=== PATIENT | female | born 1950 | race Caucasian/White ===

== ENCOUNTER 2022-04-19 08:43 | Outpatient (REF) | payer MEDICARE, SELFPAY ==
--- NOTE | ~2022-04-19 | CT_ITS ---
EXAMINATION: CT LUMBAR SPINE WITHOUT CONTRAST CLINICAL INFORMATION: 71-year-old with radiculopathy, lumbar region. COMPARISON: None TECHNIQUE: CT imaging of the lumbar spine was performed with 2D multiplanar reformatted reconstructions. This CT examination was performed using dose optimization techniques as appropriate, variously including the following: *Automated exposure control *Adjustment of mA and/or kV according to patient size (this includes techniques or standardized protocols for targeted exams where dose is matched to indication/reason for exam; i.e. extremities or head) *Use of iterative reconstruction technique DLP; 465 mGy-cm FINDINGS: Alignment: There is S-shaped thoracolumbar scoliotic curvature, mildly to moderately convex to the right at L4-L5 with lktp-fr-hiazb lateral listhesis at L4-L5. There is lordotic loss, with slight reversal of the normal lordotic curvature centered at L2-L3 and there is trace retrolisthesis at L5-S1. Lumbosacral Junction: Normal. There are 5 fwr-ibf-vzwamdr lumbar-type vertebral bodies. Hardware: There is evidence of previous anterior instrumented interbody fusions at the L2-L3, L3-L4 and L4-L5 levels, with fusion cages noted in place, with left paravertebral fusion hardware also noted in place, with intact hardware without hardware fracture or loosening. There is bridging paravertebral ossification which appears to engulf the paravertebral hardware on the left. Vertebral Bodies: Vertebral body heights are well-maintained. No acute fractures are identified. Disc Spaces and Endplates: Solid osseous interbody fusion noted at the L2-L3, L3-L4 and L4-L5 levels, with multilevel anterolateral spondylosis and multilevel paravertebral bridging osteophytosis. Moderate disc space height loss at L5-S1 is noted, with intradiscal vacuum disc phenomenon, Schmorl's nodes, degenerative endplate sclerosis and spondylosis. Tiny focus of vacuum disc noted anteriorly at L1-L2 with minor anterior and paravertebral spondylosis. Spinal Levels: L5-S1: Mild retrolisthesis is noted. There is concentric disc bulging, with encroachment on the ventral dural sac. Ligamentum flavum thickening is noted with severe right-sided and moderate left-sided facet arthropathy. Somewhat prominent epidural fat noted at this level without significant central spinal canal stenosis. Some crowding of the subarticular zones is noted with disc bulging encroaching on the traversing S1 nerve roots, right more the left. There is severe right-sided and moderate left-sided neuroforaminal stenosis with impingement on the exiting right L5 nerve root. L4-L5: Postlaminectomy changes noted on the right. Soft tissues within the canal and neural foramina are partially obscured due to artifact. Solid osseous fusion of the posterior elements noted on the left with bilateral facet arthropathy. Mild foraminal narrowing is noted bilaterally without definite neural impingement. No bony canal stenosis. L3-L4: Postlaminectomy changes noted posteriorly. No bony canal stenosis. Soft tissues are partially obscured by metallic artifact. No significant neuroforaminal stenosis. Partial solid osseous fusion of the posterior elements on the left. L2-L3: Postlaminectomy changes with no bony canal stenosis. Soft tissues in the canal are partially obscured by artifact. Ffsp-jl-jwouifcw facet arthropathy is noted, right more than left. No significant neuroforaminal stenosis. L1-L2: No significant disc bulge or herniation. Mild right-sided facet arthropathy noted. No significant canal or neuroforaminal stenosis. T12-L1: No disc bulge or herniation. Minor facet arthrosis noted bilaterally. No canal or neuroforaminal stenosis. Paravertebral and Included Extraspinal Soft Tissues: Visualized lung bases are grossly unremarkable. Note is made of a 1 cm ovoid left adrenal nodule with a CT number of -5 Hounsfield units consistent with a lipid-rich benign adrenal adenoma. Recommend followup CT in 12 months to reassess for stability. The paravertebral soft tissues appear grossly unremarkable. The right kidney is malrotated. CT/CT lumbar spine wo IV con IMPRESSION: 1. Thoracolumbar S-shaped scoliotic curvature, with lordotic loss and mild retrolisthesis at L5-S1 with dswk-se-nnshu lateral listhesis at L4-L5. 2. Status post anterior and posterior instrumented fusions at L2-L3, L3-L4 and L4-L5 with intact hardware without fracture or loosening. Solid osseous interbody fusion noted at L2-L3, L3-L4 and L4-L5 with partial solid osseous fusion of the posterior elements on the left at L3-L4 and L4-L5. Post laminectomy changes noted with no evidence for bony canal stenosis. Soft tissues in the canal at the operative levels are obscured by metallic artifact. 3. Disc degenerative changes with disc bulging at L5-S1 with facet arthropathy, disc bulging encroaching on the subarticular zones, with encroachment on the traversing S1 nerve roots, right more than left. Severe right-sided and moderate left-sided neuroforaminal stenosis with impingement on the exiting right L5 nerve root and mild foraminal narrowing bilaterally at L4-L5. 4. A 1 cm left adrenal nodule consistent with a lipid-rich benign adrenal adenoma. Recommend followup CT of the abdomen in 12 months to reassess for stability.
== END 2022-04-19 08:44 | disposition home or self-care (01) ==
LOC: HO.CT 08:43
PROVIDERS: PCP Internal Medicine; Visit Provider Internal Medicine
DX: M54.16 Radiculopathy, lumbar region (principal); R26.9 Unspecified abnormalities of gait and mobility
CPT/HCPCS: 72131

== ENCOUNTER → 2022-06-19 10:20 | Outpatient (BNVA) | payer MEDICARE, SELFPAY | PROVIDERS: PCP Internal Medicine; Visit Provider Physician Assistant | DX: M54.40 Lumbago with sciatica, unspecified side (principal) | CPT/HCPCS: 99202 ==

== ENCOUNTER 2022-07-13 10:15 | Outpatient (REF) | payer MEDICARE, SELFPAY ==
--- NOTE | ~2022-07-13 | MM_ITS ---
EXAMINATION: BONE DENSITOMETRY CLINICAL INDICATION: Age-related osteoporosis without current pathological fracture. COMPARISON: This is the patient's baseline examination. TECHNIQUE: Using a [employer] DXA System (software version: 13.1) manufactured by [employer], dual-energy x-ray absorptiometry was performed of the left hip and left forearm radius 33%. The images are of good technical quality. Summary results are attached. FINDINGS: LEFT FEMUR, NECK: BMD 0.987 g/cm2, Z-score 1.3, T-score -0.4, normal. LEFT FEMUR, TOTAL: BMD 1.056 g/cm2, Z-score 1.8, T-score 0.4, normal. LEFT FOREARM RADIUS 33%: BMD 0.854 g/cm2, Z-score 1.8, T-score -0.2, normal. IDENTIFIED RISK FACTORS: Menopause, hysterectomy. HISTORY OF FRACTURE: None listed. MEDICATIONS: Calcium supplements or multivitamin, vitamin D. MM/XR DEXA axial skeleton IMPRESSION: 1. DIAGNOSIS: Normal bone density based on the lowest T-score value of -0.4 in the femoral neck applying World Health Organization criteria. 2. 10-YEAR FRACTURE RISK PREDICTION, FRAX: According to the guidelines, FRAX calculation should only be performed on patients in the osteopenia bone density category. Therefore, FRAX was not performed on this patient. 3. Treatment Recommendations: NOF guidelines recommend consideration for treatment in postmenopausal women and men age 50 and older presenting with the following: -A hip or vertebral (clinical or morphometric) fracture. -T-score less than or equal to -2.5 at the femoral neck or spine after appropriate evaluation to exclude secondary causes. -Low bone mass at the hip or spine and a 10-year fracture probability by FRAX of greater than or equal to 3% for hip fracture or greater than or equal to 20% for major osteoporotic fracture based on the [place] adapted WHO algorithm. 4. Other Recommendations: All treatment decisions require clinical judgment and consideration of individual patient factors, including patient preferences, comorbidities, previous drug use, risk factors not captured in the FRAX model (e.g. frailty, falls, vitamin D deficiency, increased bone turnover, interval significant decline in bone density) and possible under or overestimation of fracture risk by FRAX. FUTURE SCAN RECOMMENDATION: People with diagnosed cases of osteoporosis or at high risk for fracture should have regular bone mineral density tests. For patients eligible for Medicare, routine testing is allowed once every 2 years. The testing frequency can be increased to one year for patients who have rapidly progressing disease, those who are receiving or discontinuing medical therapy to restore bone mass, or have additional risk factors.
== END 2022-07-13 10:16 | disposition home or self-care (01) ==
LOC: HO.MAMMO 10:15
PROVIDERS: PCP Internal Medicine; Visit Provider Internal Medicine
DX: Z13.820 Encounter for screening for osteoporosis (principal); M81.0 Age-related osteoporosis without current pathological fracture; Z91.89 Other specified personal risk factors, not elsewhere classified; Z78.0 Asymptomatic menopausal state
CPT/HCPCS: 77080

== ENCOUNTER 2022-07-18 10:15 | Outpatient (REF) | payer MEDICARE, SELFPAY ==
--- NOTE | ~2022-07-18 | MR_ITS ---
EXAMINATION: MR LUMBAR SPINE WITHOUT CONTRAST CLINICAL INFORMATION: Low back pain and sciatica. COMPARISON: CT lumbar spine dated 04/19/2022 TECHNIQUE: Multiplanar, multisequence imaging was obtained. FINDINGS: . VERTEBRAL BODIES AND PARASPINAL STRUCTURES: The patient is status post multilevel interbody fusion with hardware instrumentation at the L2-L3, L3-L4, and L4-L5 levels. Solid interbody fusion changes are demonstrated, despite artifacts and also when correlating to the patient's prior CT exam. Chronic postlaminectomy changes are also present at these levels. There are no compression fractures. The marrow signal is within normal limits. There is a rightward curvature of the midlumbar spine. Moderate to severe loss of disc height with vacuum disc phenomenon noted at the L5-S1 level. No paraspinal soft tissue fluid collections are seen. CONUS MEDULLARIS AND CAUDA EQUINE: The distal cord, conus tip, and cauda equina nerve roots are normal. SPINAL LEVELS: L1-L2: Very mild disc bulge and unkl-qy-zeyvfvld facet arthropathy without central canal stenosis or foraminal narrowing. L2-L3: Post fusion changes without central canal stenosis or foraminal narrowing. L3-L4: Post fusion changes present without central canal stenosis. Hypertrophic bony changes and bulging disc result in moderate left foraminal encroachment and mild right foraminal narrowing. L4-L5: Post fusion changes and facet arthropathy without central canal stenosis. Mild right foraminal narrowing. Hypertrophic bony changes contribute to moderate left foraminal encroachment. L5-S1: Diffuse disc bulge and moderate to severe facet arthropathy, worse on the right side. No central canal stenosis. Bulging disc mildly impresses upon the right S1 nerve root in the lateral recess. Severe bilateral foraminal narrowing due to osseous spurring and bulging disc distorting the right L5 nerve root. Lateralized bulging disc contacts the exiting left L5 nerve root as well. MR/MR lumbar spine wo con IMPRESSION: 1. Status post multilevel interbody fusion with hardware instrumentation at the L2-L3, L3-L4, and L4-L5 levels. Moderate left foraminal narrowing at the L3-L4 and L4-L5 levels. 2. Moderate to severe degenerative disc disease at the L5-S1 level without central canal stenosis. Bulging disc distorts the right S1 nerve root in the lateral recess. Severe bilateral foraminal narrowing with compression of the right greater than left L5 nerve roots.
== END 2022-07-18 10:16 | disposition home or self-care (01) ==
LOC: HO.MRI 10:15
PROVIDERS: PCP Internal Medicine; Visit Provider Physician Assistant
DX: M54.40 Lumbago with sciatica, unspecified side (principal)
CPT/HCPCS: 72148

== ENCOUNTER → 2022-08-07 15:00 | Outpatient (BNVA) | payer MEDICARE, SELFPAY | PROVIDERS: PCP Internal Medicine; Visit Provider Physician Assistant | DX: M54.50 Low back pain, unspecified (principal); Z98.1 Arthrodesis status | CPT/HCPCS: 99212 ==

== ENCOUNTER → 2022-10-02 13:02 | Outpatient (BNV) | payer MEDICARE, SELFPAY | PROVIDERS: Admitting Provider Internal Medicine; Visit Provider Internal Medicine Cardiovascular Disease | DX: Z01.818 Encounter for other preprocedural examination (principal) | CPT/HCPCS: 93010 ==

== ENCOUNTER 2022-10-15 09:13 | Inpatient (IN) | payer MEDICARE, SELFPAY ==
--- NOTE | 2022-10-02 | ECG_ITS ---
Test Reason : PREOP Blood Pressure : / mmHG Vent. Rate : 070 BPM Atrial Rate : 070 BPM P-R Int : 142 ms QRS Dur : 086 ms QT Int : 400 ms P-R-T Axes : 021 -04 007 degrees QTc Int : 432 ms Normal sinus rhythm Cannot rule out Anterior infarct , age undetermined Abnormal ECG When compared with ECG of 25-SEP-2016 12:46, No significant change was found Referred By: Dionna Blakely Electronically Signed By:ALEN ANDERSON MD
[2022-10-02 12:28] VITALS: BP 136/75; PULSE 75; RESP 16; O2SAT 99; BMI 28.3
--- NOTE | 2022-10-02 12:39 | P.CONAN_ITS ---
HPI - Anesthesia Eval Consult details Narrative: 72yo F for L5-S1 Ant Lumbar Interbody Fusion No recent illness No CP/SOB with limited activity d/t back pain PONV Pt denies CKD. Per labs from outside facility, nml kidney function. PMFSH Active Problems Active Problems: All Active Problems (Updated 10/02/22 @ 12:19 by Alejandra Thacker, RN) Back pain of lumbar region with sciatica (Acute) Past Medical History Medical History (Updated 10/02/22 @ 12:19 by Alejandra Thacker RN) Abnormal gait Arthritis Benign neoplasm of soft tissue Calcaneal spur CKD (chronic kidney disease) stage 3, GFR 30-59 ml/min Contusion DDD (degenerative disc disease), lumbar Gait disturbance H/O onychomycosis History of sciatica HTN (hypertension) Hyperlipidemia Increased urinary frequency Lumbar radiculopathy Neuroforaminal stenosis of lumbar spine Neuropathy Peroneal neuropathy Post-menopause Pruritus Right sacral radiculopathy Seborrheic keratosis Tarsal tunnel syndrome of both lower extremities Weakness of right lower extremity Family History Family history of problems with anesthesia: Yes (Daughter - PONV) Surgical History Surgical History (Updated 10/02/22 @ 12:19 by Alejandra Thacker RN) H/O colonoscopy History of back surgery History of carpal tunnel surgery of right wrist Hx of hysterectomy History of Problems with Anesthesia: Yes (PONV) Social History Social History Are you a primary specialist wound care to a significant other at home: No Do you presently have visiting nurse or other home services: No Patient Tobacco Use Status: Never used Tobacco Use of substances other than those prescribed or required for medical reasons: No Have you been hit, kicked, punched, or otherwise hurt by someone within the past year? If so, by whom?: No Are you DNR?: No Advance Directives: No Advance Directives Information Provided: No Advance Directives on File: No Recently lost weight without trying: No Eating poorly because of decreased appetite: No Nutrition Risks: No Nutritional Risk Patient : No : No Poor oral hygiene: Yes (crown in front) Meds Allergies Allergy/AdvReac Type Severity Reaction Status Date / Time diphenhydramine Allergy Intermediate heart Verified 06/19/22 10:47 [From Benadryl Allergy] palpatations Home Medications Medication Instructions Recorded Confirmed Last Taken Type cholecalciferol (vitamin D3) 25 25 mcg PO DAILY 10/01/22 10/01/22 Unknown History mcg (1,000 unit) tablet (Vitamin D3) cyanocobalamin (vitamin B-12) 1,000 mcg PO DAILY 10/01/22 10/01/22 Unknown History 1,000 mcg tablet (Vitamin B-12) gabapentin 300 mg capsule 600 mg PO BID 10/01/22 10/01/22 Unknown History olmesartan 5 mg tablet 10 mg PO DAILY 10/01/22 10/02/22 Unknown History ybhqr2-fei-cax-other nwpst0h-uazq 2 cap PO DAILY 10/01/22 10/01/22 Unknown History oil 350 mg- 400 mg capsule vitamin E 268 mg (400 unit) capsule 268 mg PO DAILY 10/01/22 10/01/22 Unknown History magnesium 200 mg tablet 200 mg PO DAILY 10/02/22 10/02/22 Unknown History naproxen 500 mg tablet 500 mg PO BID PRN Pain 10/02/22 10/02/22 Unknown History Exam Exam Date and Time: October 02, 2022 123 Height,Weight and Vital Signs: Height 5 ft 5 in Weight 77.111 kg Last Vital Signs Pulse 75 10/02/22 12:28 Resp 16 10/02/22 12:28 BP 136/75 10/02/22 12:28 Pulse Ox 99 10/02/22 12:28 O2 Del Method Room Air 10/02/22 12:28 Airway Mallampati Class: II TM Dist: >3cm Neck ROM: Full Loose/Missing/Broken Teeth: Yes (8&9 crowned, molars missing) Heart: RRR Lungs: CTAB Assessment and Plan Assessment Anesthesia Assessment: Anesthesia Plan Discussed and PAT Visit Final Anesthetic Review Family History of Problems with Anesthesia: Yes (Daughter - PONV) History of Problems with Anesthesia: Yes (PONV)
[2022-10-15] VITALS (15 sets, daily range): BP systolic 121–156; BP diastolic 57–84; PULSE 54–95; RESP 12–20; TEMP 35.8–36.8; O2SAT 95–100
--- NOTE | ~2022-10-15 | FL_ITS ---
EXAMINATION: XR FLUOROSCOPY WITH IMAGES CLINICAL INFORMATION: L5-S1 anterior lumbar interbody fusion. COMPARISON: Lumbar spine CT April 2022 TECHNIQUE: Fluoroscopy Supervised By: Dr. Ronen Dela Cruz. Fluoroscopy Time: 0.2 minutes. Cumulative Dose: 19.3 mGy. DAP: 5.28 Gycm2. Images: 3. FINDINGS: Images demonstrate new anterior interbody fusion hardware at L5-S1. There is evidence of previous interbody fusion at L3-L4 and L4-L5 similar to previous CT scan April 2022. FL/FL guidance in OR IMPRESSION: Fluoroscopy guidance for anterior interbody fusion at L5-S1.
--- NOTE | ~2022-10-15 | XR_ITS ---
EXAMINATION: XR LUMBOSACRAL SPINE CLINICAL INFORMATION: Postop evaluation. COMPARISON: None available. TECHNIQUE: Limited single view of the lumbosacral spine. FINDINGS: The patient is status post left lateral fusion at L2-L3, L3-L4 and L4-L5 and anterior fusion at L5-S1. There is good anatomic alignment without overt abnormality. Multilevel prominent marginal osteophyte formation is seen. No acute fracture. Nonobstructive bowel gas pattern. Linear air is presumed postsurgical overlying the left hemipelvis. XR/XR lumbar spine 1V IMPRESSION: 1. Overall good anatomic alignment without overt abnormality. 2. Linear air overlying the left hemipelvis is presumed postsurgical.
[2022-10-15] MEDS: methocarbamoL 750 MG TABLET PO (07:00)
[2022-10-15] MEDS: Scopolamine 1.5 MG PATCH.TD.3 TRANSDERMA (07:01)
[2022-10-15] MEDS: Gabapentin 300 MG CAPSULE PO ×3 (07:01→20:33)
--- NOTE | 2022-10-15 07:10 | MHC.SHP ---
Pre-Procedural Eval Section A Date of Service: 10/15/22 The patient is an INPATIENT: No The History & Physical has been completed within 30 days and I have reviewed it.: No Section B Chief Complaint: Lumbago with sciatica, unspecified side Details of Present Illness: Back pain Relevant Family History (Specify if Yes): No Relevant Social History: None Present Medications: see Short Stay Collaborative assessment Medical History: No relevant PMH History of Previous Operations: No relevant previous surgery (L2-L5 fusion elsewhere) Allergies: Allergies Allergy/AdvReac Type Severity Reaction Status Date / Time diphenhydramine Allergy Intermediate heart Verified 10/15/22 06:23 [From Benadryl Allergy] palpatations Review of Systems Sugical H&P ROS: Negative: Constitution, Cardiovascular, Respiratory, Neurological, Psychiatric, Hem-Onc, Allergic/Immunologic, Gastrointestinal, Genitourinary, Musculoskeletal, Integumentary, Endocrine and Eyes/Ears/Nose/Throat Exam Surgical H&P Exam: Not Evaluated: HEENT, Not Evaluated: Heart, Not Evaluated: Lungs, Not Evaluated: Extremities, Not Evaluated: Abdomen, Not Evaluated: Skin and Not Evaluated: Neurological Plan Diagnosis/Plan: Unchanged (Anterior lumbar interbody fusion L5-S1) I have reviewed the history and physical and performed a pertinent physical examination on my patient. No changes have occurred unless specified. Time Spent With Patient Time: Total time managing care of this patient today __10__ minutes.
--- NOTE | 2022-10-15 08:23 | P.CONAN_ITS ---
[facility] Active Problems Active Problems: All Active Problems (Updated 10/02/22 @ 12:19 by Alejandra Thacker RN) Back pain of lumbar region with sciatica (Acute) Past Medical History Medical History Abnormal gait Arthritis Benign neoplasm of soft tissue Calcaneal spur CKD (chronic kidney disease) stage 3, GFR 30-59 ml/min Contusion DDD (degenerative disc disease), lumbar Gait disturbance H/O onychomycosis History of sciatica HTN (hypertension) Hyperlipidemia Increased urinary frequency Lumbar radiculopathy Neuroforaminal stenosis of lumbar spine Neuropathy Peroneal neuropathy Post-menopause Pruritus Right sacral radiculopathy Seborrheic keratosis Tarsal tunnel syndrome of both lower extremities Weakness of right lower extremity Family History Family history of problems with anesthesia: No (Daughter - PONV) Surgical History Surgical History H/O colonoscopy History of back surgery History of carpal tunnel surgery of right wrist Hx of hysterectomy History of Problems with Anesthesia: No (PONV) Social History Social History Are you a primary wound care physician to a significant other at home: No Do you presently have visiting nurse or other home services: No Patient Tobacco Use Status: Never used Tobacco Meds Allergies Allergy/AdvReac Type Severity Reaction Status Date / Time diphenhydramine Allergy Intermediate heart Verified 10/15/22 06:23 [From Benadryl Allergy] palpatations Active Medications: Current Medications Lactated Ringer's (Lr) 1,000 mls @ 100 mls/hr IVCONT .Q10H [facility] Home Medications Medication Instructions Recorded Confirmed Last Taken Type cholecalciferol (vitamin D3) 25 25 mcg PO DAILY 10/01/22 10/01/22 Unknown History mcg (1,000 unit) tablet (Vitamin D3) cyanocobalamin (vitamin B-12) 1,000 mcg PO DAILY 10/01/22 10/01/22 Unknown History 1,000 mcg tablet (Vitamin B-12) gabapentin 300 mg capsule 600 mg PO BID 10/01/22 10/01/22 Unknown History olmesartan 5 mg tablet 10 mg PO DAILY 10/01/22 10/02/22 Unknown History -obs-wcw-other nleic5t-nsuk 2 cap PO DAILY 10/01/22 10/01/2210/08/23 History oil 350 mg- 400 mg capsule vitamin E 268 mg (400 unit) capsule 268 mg PO DAILY 10/01/22 10/01/22 Unknown History magnesium 200 mg tablet 200 mg PO DAILY 10/02/22 10/02/22 Unknown History naproxen 500 mg tablet 500 mg PO BID PRN Pain 10/02/22 10/02/22 Unknown History Exam Exam Date and Time: October 15, 202223 Height,Weight and Vital Signs: Height 5 ft 5 in Weight 77.111 kg Last Vital Signs Temp 97.3 F 10/15/22 06:50 Pulse 81 10/15/22 06:50 Resp 16 10/15/22 06:50 BP 146/84 H 10/15/22 06:50 Pulse Ox 98 10/15/22 06:50 O2 Del Method Room Air 10/15/22 06:50 Airway Mallampati Class: III TM Dist: >3cm Neck ROM: Full Assessment and Plan Assessment Anesthesia Assessment: Anesthesia Plan Discussed and Chart Reviewed Final Anesthetic Review Family History of Problems with Anesthesia: No (Daughter - PONV) History of Problems with Anesthesia: No (PONV) NPO: Yes ASA Class: II Final Preanesthetic Review: No Changes in Pt Med Stat, Meds/Allgs Chart Reviewed, Consent Obtained/Reviewed and Anes Risks/Benef Reviewed Patient Risk: Low Procedure Risk: Intermediate Anesthetic Plan Anesthetic Plan: GA Disposition: Standard PACU
--- NOTE | 2022-10-15 09:26 | P.OP_ITS ---
Operative Note Operative Note Date of Service: 10/15/22 Narrative: Preoperative Diagnosis: 1.) Back pain and bilateral leg pain Procedure: L5-S1 discectomy, arthrodesis and implantation cage; L5-S1 anterior instrumentation through an anterior, retroperitoneal approach (ALIF) Indication for surgery: Lumbar degenerative disease Consent Informed Consent was obtained for this operation. I have explained the nature, purpose and benefits of the operation. I have discussed the risks and benefit of the operation including possible complications or adverse events with patient/family. Alternative(s) were discussed with the patient with their relative benefits and risks as well as the consequences of not accepting the operation were included in obtaining consent. Surgeon: LIONEL DOCKERY MD, PHD Procedure Assisted By: BALJINDER MILLER MD Description of Procedure This 72-year-old female had a previous L2-L5 direct lateral interbody fusion done in our institution. She complains of progressive intractable low back pain and bilateral leg pain. The MRI is showing lumbar degenerative disc disease L5- S1. The patient was offered a minimally invasive lumbar fusion through an anterior, retroperitoneal approach.The procedure complications were explained. The patient was consented. The patient was brought to the operating room and endotracheally intubated. The patient was positioned in a supine position. Prep and drape was done followed by timeout. Dr. Miller, co-surgeon, provided the access to the L5-S1 disc space through an anterior, retroperitoneal approach. He will dictate the approach in a separate operative note. When the L5-S1 disc space was exposed I took over the procedure. An annulotomy was done followed by a thorough discectomy. Sequential trial implants were inserted and advanced towards the posterior wall of the disc space. I completed the discectomy and prepared the endplates. Then a 24 x 36 x 10 mm and 12 degree lordosis cage filled with allograft was inserted into the disc space. The cage was locked with a 5 x 27 S1 screw and two 5 x 23 screws in L5 vertebral body as anterior instrumentation. The retractor was removed and hemostasis was done by Dr. Sanford who closed the incision. Patient was extubated and transported in stable condition to recovery room. Anesthesia: General Estimated Blood Loss (ml): 30 Duration of Surgery: 1 hour 15 Complications: None Postoperative Plan: Admit to inpatient for observation
--- NOTE | 2022-10-15 10:07 | PHA.MEDREC ---
Pharmacy Consult ? Medication Reconciliation Pharmacy has reviewed the medication reconciliation.
--- NOTE | 2022-10-15 10:43 | P.OP_ITS ---
Operative Note Operative Note Date of Service: 10/15/22 Narrative: Patient was evaluated by Dr. Dela Cruz for chronic lower back pain and radiculopathy and scheduled for ALIF L5-S1. I met with the patient pre- operatively and discussed the access part of the procedure and risks an the patient agreed to proceed. She was brought to the operating room and general anaesthesia was administered without incident. Abdomen was prepped sterily and draped. Timeout was done. 6 cm infra-umbilical incision was done and it was phan down to the anterior rectus sheath. Rectus sheath was opened horizontally and left rectus muscle was mobilized. Left inferior epigastric vessels were protected. Round ligament was transected between hemoclips ant retro-peritoneal plane was developed , Left ureter was visualized and protected. Bookwalter retractor was placed with narrow blades. Dissection was carried at the medial aspect of the the left common iliac vein which was mobilized from the spine and middle sacral vessels were divided, Bipolar electrocautery was used to completely free L5-S1 disc anteriorly. Midline was marked with X-ray imaging. Doctor Dela Cruz then proceeded with diskectomy and cage fusion.Hemostasis was checked and was excellent. Gelfoam sponge was placed over the disc space. Ureter was intact and there was a good iliac pulse. Incision was injected with diluted Lidocaine/Marcaine mixture and closed by layers using O-Maxone on the fascia and absorbable subcutaneous and subcuticular closure. Exofin glue and steri-strip were applied. EBL: less then 10ml Complication:none
[2022-10-15] MEDS: HYDROmorphone HCl 1 MG/ML SYRINGE IVPUSH (11:16)
[2022-10-15] MEDS: ceFAZolin Sodium/Dextrose,Iso 2 GM/50 ML PIGGYBACK IV ×2 (13:18→20:34)
[2022-10-15] MEDS: Acetaminophen 1,000 MG/100 ML PIGGYBACK 400 MG IV ×2 (14:17→20:24)
[2022-10-15] MEDS: Gabapentin 300 MG CAPSULE 600 MG PO (20:34)
[2022-10-15] MEDS: Famotidine 20 MG TABLET PO (20:34)
[2022-10-15] MEDS: Docusate Sodium 100 MG CAPSULE PO (20:34)
[2022-10-16] MEDS: Acetaminophen 1,000 MG/100 ML PIGGYBACK 400 MG IV ×2 (02:52→09:16)
[2022-10-16] MEDS: ceFAZolin Sodium/Dextrose,Iso 2 GM/50 ML PIGGYBACK IV (02:54)
[2022-10-16 03:41] VITALS: BP 124/60; PULSE 68; RESP 16; TEMP 36.1; O2SAT 99
[2022-10-16 07:56] VITALS: BP 111/59; PULSE 68; RESP 16; TEMP 36.6; O2SAT 98
--- NOTE | 2022-10-16 08:05 | HO.NEURO.PN ---
Neurosurgery Operative Note Date of Service: 10/16/22 Narrative: POD: 1 Procedure: L5-S1 ALIF Patient reports she is up walking around is otherwise doing well. She feels her symptoms are much better than pre-operatively and reports no pain / numbness / tingling / burning at this time. She states she is very happy with her surgery. She is ambulating, voiding well, tolerating diet, and is awaiting PT evaluation. Afebrile, vital signs stable. Full strength 5/5 in LE. Reports no weakness / pain with plantar flexion / dorsiflexion. Anterior midline incision is C/D/I. Steri-strips remain in place. No serosanguineous drainage or hematoma. Plan: Patient meets criteria to be medically discharged home, discussed with Dr. Dela Cruz who is aware that she is doing well and meets criteria for DC.
--- NOTE | 2022-10-16 08:12 | P.DS_ITS ---
DS: Providers Provider Date of Service: 10/16/22 Date of admission: 10/15/22 09:13 Primary care physician: Zamzam Vidal MD DS: Diagnosis Discharge Diagnosis (1) Back pain of lumbar region with sciatica: Status: Acute DS: Summary Time Spent with Patient Time attestation: Total time managing care of this patient today ____ minutes. Discharge coordination time: Less than 30 minutes Quality: Safe Use of Opioids Does Pt have an Active Cancer Diagnosis on the Problem List?: No Quality: Stroke Does the patient have a stroke diagnosis?: No Physical Exam Vital Signs: Vital Signs: Last Vital Signs Temp 97.9 F 10/16/22 07:56 Pulse 68 10/16/22 07:56 Resp 16 10/16/22 07:56 BP 111/59 L 10/16/22 07:56 Pulse Ox 98 10/16/22 07:56 O2 Del Method Room Air 10/16/22 07:56 O2 Flow Rate 2 10/15/22 11:15 BMI result Body Mass Index 28.3 Discharge Plan Discharge Anticipated Discharge Date/Time: 10/16/22 08:15 Patient Disposition: Home, Self-Care Discharge Diagnosis: S/P L5-S1 ALIF Referrals: Zamzam Vidal MD [Primary Care Provider] - 1 Week Discharge Medications: New oxycodone 5 mg tablet 5 mg PO Q4-6H PRN (Reason: pain) Qty: 20 0RF Rx Instructions: Partial Fill upon patient request. docusate sodium [Colace] 100 mg capsule 100 mg PO BID Qty: 20 0RF Continued cyanocobalamin (vitamin B-12) [Vitamin B-12] 1,000 mcg Tablet 1,000 mcg PO DAILY vitamin E 268 mg (400 unit) Capsule 268 mg PO DAILY cholecalciferol (vitamin D3) [Vitamin D3] 25 mcg (1,000 unit) Tablet 25 mcg PO DAILY gabapentin 300 mg capsule 600 mg PO BID olmesartan 5 mg tablet 10 mg PO DAILY naproxen 500 mg Tablet 500 mg PO BID PRN (Reason: Pain) magnesium 200 mg Tablet 200 mg PO DAILY Held haqao-2x-ouk-epa-fish oil 350-400 mg Capsule 2 cap PO DAILY Hold Instructions: Resume on 10/21/22. Discharge Orders: Discharge Order (Routine); Ordered 10/16/22 Ordered By: Hiram Narayanan Diet: Advance to usual diet Activity on Discharge: As tolerated Stand Alone Forms: Patient Portal Discharge page Activity Restrictions/Additional Instructions: After your spinal surgery we ask you to observe the following restric tions/guidelines: Activity: It is normal to feel some discomfort as you increase your activity, but that will improve with time. We ask you avoid heavy lifting or acitivities that cause pain. As a general rule, 8lbs is a safe limit for lifting right after surgery. Walk as much as you feel comfortable but not to exhaustion. You will feel extra tired the first few days after surgery. Stay well hydrated. It is OK to walk up and down stairs You may return to driving when you are off narcotics (such as vicodin, oxycodone, dilaudid, etc), and you are back to normal functional capacity. If you have any concerns please check with office before driving. Return to work is specific to each patient and each surgery, so please speak with your doctor/PA at first follow up. Please bring paperwork such as FMLA at that time if you need it filled out. Medications: We will give you a short supply of narcotics after surgery (usually one weeks worth). If you need more please call the office but do not use more than prescribed. You will need to give our office 48 hours notice if you need narcotics refilled and we do not fill narcotics on weekends or evenings. If you are on a narcotic, it is a good idea to take a stool softener such as colace or senna to avoid constipation If you take blood thinner such as aspirin, Plavix, Coumadin, Effient, Eliquis etc for conditions such as Afib, DVT, Pulmonary embolus, coronary disease, stents etc please speak with your surgeon about specific details as to when you can resume these medications. You can resume NSAIDs on post op day 1 (eg: Motrin, Naproxen, etc). Follow up: Please call the office, , after surgery to arrange a 3 week follow up for wound check. Wound Care: You may remove your dressing on the first day after surgery. You may leave open to air. Please do not remove the steri strips underneath. they will fall off on their own in one week. IT IS NORMAL FOR THE WOUND TO OOZE OR BE BLOODY FOR A FEW DAYS AFTER SURGERY. IF THIS HAPPENS JUST PLACE NEW DRESSING OVER IT TO AVOID STAINING CLOTHES. You may shower on post op day # 1 We ask that you do not let the water soak the wound. If it does get wet, just towel dry lightly. Please do not scrub your incision or place any type of chemical/ointment on the wound. No tub baths, pools or jacuzzis for one month. If you have any leaking or redness from your wound, or fevers, please call office Care Plan Goals: return to activity as tolerated Health Concerns: none Plan of Treatment: f/u in clinic in 2 weeks Assessment: stable. clear to discharge after PT evaluation and clearance
--- NOTE | 2022-10-16 08:20 | W.MHC.F2F ---
Service Date Service Date: 10/16/22 Encounter Date of encounter: 10/16/22 Reasons for Services Signs and symptoms assessed: S/P L5-S1 ALIF. See symptomology below. Reason for physical therapy: home safety and mobility, therapeutic exercises, gait/transfer training and ADL training Homebound: Leaving the home is medically contraindicated at this time without the asist of a device and/or another person due th the listed conditions above and below. Reason homebound: unsteady gait / fall risk, leg weakness, pain with ambulation and pain with transfers Certification: Based on the above findings, I certify that this patient is confined to the home and needs intermittent physical therapy. The patient is under my care, and I have initiated the establishment of the plan of care. The patient will be followed by a physician who will periodically review the plan of care. Time Spent With Patient Time: Total time managing care of this patient today _10___ minutes.
--- NOTE | 2022-10-16 09:13 | HO.POSTANES ---
Post Anesthesia Evaluation Post Anesthesia Evaluation Date of Service: 10/16/22 Vital Signs: Vital Signs Temp Pulse Resp BP Pulse Ox O2 Del Method 10/16/22 07:56 97.9 F 68 16 111/59 L 98 Room Air 10/16/22 03:41 96.9 F 68 16 124/60 99 Room Air Anesthesia: General Endotracheal-GETA Mental Status: Awake Pain Control: Satisfactory Nausea/Vomiting: None Hydration: Adequate Anesthesia-Related Issues: No Anes. Related Issues
--- NOTE | 2022-10-16 09:16 | MHC.CM.PN ---
Addendum entered by Makeda Astudillo 10/16/22 12:09: UNABLE TO SECURE A [facility] FOR SERVICES AT HOME DUE TO LOCATION/INSURANCE. [facility] KEVIN UPDATED AND IS AGREEABLE TO OP SERVICES. DAUGHTER CHARLES UPDATED AND AGREEABLE WELL. Addendum entered by Makeda Astudillo 10/16/22 09:52: [facility] DOES NOT SERVICES [facility]. REFERRALS SENT TO MULTIPLE AGENCIES. AWAITING RESPONSES.DAUGHTER AND PT MADE AWARE. Original Note: DP: [facility] DELIVERED PT HAS BEEN MEDICALLY CLEARED FOR DC HOME WITH NEW [facility] FOR HOME P.T. (FIRST CHOICE) PT LIVES ALONE AND HAS SUPPORT FROM DAUGHTERS. INDEPENDENT AT BASELINE. USES CANE AT TIMES AND HAS WALKER BUT DOES NOT USE. + COVID VAX +HCP AT MD OFFICE PCP DR. BHARGAVI ACUNA AT [facility]. REFERRAL SENT TO [facility]. DAUGHTER WILL TRANSPORT HOME
[2022-10-16] MEDS: Famotidine 20 MG TABLET PO (09:18)
[2022-10-16] MEDS: Gabapentin 300 MG CAPSULE 600 MG PO (09:18)
[2022-10-16] MEDS: Valsartan 40 MG TABLET 20 MG PO (09:18)
[2022-10-16] MEDS: Docusate Sodium 100 MG CAPSULE PO (09:18)
[2022-10-16] MEDS: Cholecalciferol (Vitamin D3) 25 MCG TABLET PO (09:18)
== END 2022-10-16 11:00 | disposition home health service (06) | DRG 460 ==
LOC: HO.SSSA 09:33 → HO.S3 10:50
PROVIDERS: Admitting Provider Neurological Surgery; PCP Internal Medicine; Visit Provider Neurological Surgery
PROC: 0SG30A0 Fusion of Lumbosacral Joint with Interbody Fusion Device, Anterior Approach, Anterior Column, Open Approach (ICD-10-PCS; principal; 2022-10-15 07:30)
DX: M51.17 Intervertebral disc disorders with radiculopathy, lumbosacral region (principal); I12.9 Hypertensive chronic kidney disease with stage 1 through stage 4 chronic kidney disease, or unspecified chronic kidney disease; N18.30 Chronic kidney disease, stage 3 unspecified; E78.5 Hyperlipidemia, unspecified; Z79.899 Other long term (current) drug therapy
CPT/HCPCS: 72020; 93005; 97116; 97161; 97530; C1713; J0131; J0690; J1100; J1170; J1885; J2250; J2371; J2405; J3010; L8699

== ENCOUNTER → 2022-10-15 09:13 | Outpatient (BNV) | payer MEDICARE, SELFPAY | PROVIDERS: Admitting Provider Neurological Surgery; PCP Internal Medicine; Visit Provider Neurological Surgery | DX: M54.40 Lumbago with sciatica, unspecified side (principal) | CPT/HCPCS: 22558; 22845; 22853 ==

== ENCOUNTER 2022-11-06 14:19 | Outpatient (AMB) | payer MEDICARE, SELFPAY ==
--- NOTE | 2022-11-06 14:31 | A.SPINEOV_ITS ---
Intake Intake Visit Reasons: 1st post op Intake Note: Ms. Narayan Hernandez is here today for her 1st post-op visit. Retirement Plan Counselor Required: No Allergies diphenhydramine [From Benadryl Allergy] Allergy (Intermediate, Verified 10/15/22 06:23) heart palpatations Assessment & Plan Assessment & Plan (1) Status post lumbar and lumbosacral fusion by anterior technique: Code(s): Z98.1 - Arthrodesis status Plan Dear colleague, On 11/06/2022, I saw for 1st postoperative visit Sapna Hernandez. She underwent an L5-S1 anterior lumbar interbody fusion 3 weeks ago from which she has an excellent recovery so far. She denies any significant pain. No radiculopathy. We reviewed the intraoperative x-ray, which shows a stand-alone implant L5-S1 secured with 3 screws. She is allowed to further expand her activities. I would like to follow up in 6 weeks with a standing x-ray. Thank you for letting me take care of your patient. Ronen Dela Cruz MD, PhD Spine Fellowship Trained Neurosurgeon Director, [facility] Coding Level of Care Code Global (14354) Diagnoses Status post lumbar and lumbosacral fusion by anterior technique Z98.1
== END 2022-11-06 15:13 | disposition home or self-care (01) ==
PROVIDERS: PCP Internal Medicine; Visit Provider Neurological Surgery
DX: Z98.1 Arthrodesis status (principal)
CPT/HCPCS: 99024

== ENCOUNTER → 2022-11-06 14:19 | Outpatient (BNVA) | payer MEDICARE, SELFPAY | PROVIDERS: Visit Provider Neurological Surgery ==

== ENCOUNTER 2022-12-18 09:21 | Outpatient (REF) | payer MEDICARE, SELFPAY ==
--- NOTE | ~2022-12-18 | XR_ITS ---
EXAMINATION: XR LUMBOSACRAL SPINE WITH OBLIQUES CLINICAL INFORMATION: Arthrodesis status. COMPARISON: October 15, 2022. TECHNIQUE: Frontal view of the lumbar spine as well as lateral views in flexion, neutral, and extension. FINDINGS: The patient is status post left lateral lumbar spinal fusion and disc spacing device placement at L2-L5. Anterior fusion/disc spacing device is seen at L5-S1. There is no evidence of hardware fracture or loosening. No bony fracture is appreciated. Mild lumbar dextrocurvature. No evidence of spondylolysis or spondylolisthesis, including in flexion, neutral, and extension. Vertebral body heights appear maintained. The paraspinal soft tissues appear unremarkable. Surgical clips object over the left groin on frontal view and anterior to the upper sacrum on lateral view. XR/XR lumbar spine 4V min IMPRESSION: No acute finding. No evidence of hardware fracture or loosening.
== END 2022-12-18 09:22 | disposition home or self-care (01) ==
LOC: HO.HOSX 09:21
PROVIDERS: Visit Provider Physician Assistant
DX: Z98.1 Arthrodesis status (principal)
CPT/HCPCS: 72110

== ENCOUNTER 2022-12-18 12:41 | Outpatient (AMB) | payer MEDICARE, SELFPAY ==
--- NOTE | 2022-12-18 13:08 | HO.SPINEOV ---
Intake Intake Visit Reasons: 2nd Post op w/Xrays Intake Note: Ms. Narayan Hernandez is here today for her 2nd post-op visit w/x-rays. Interventional Nurse Required: No Allergies diphenhydramine [From Benadryl Allergy] Allergy (Intermediate, Verified 10/15/22 06:23) heart palpatations Assessment & Plan Assessment & Plan (1) Status post lumbar and lumbosacral fusion by anterior technique: Code(s): Z98.1 - Arthrodesis status Plan Procedure: L5-S1 anterior lumbar interbody fusion Sapna comes in today for her 1st postoperative visit. She reports she is very satisfied with the surgery and feels much better than she did preoperatively. She is up out of bed daily, walking around and completing the majority of her ADLs. She reports that she no longer suffers from any back pain or radiculopathy. She states that she has been to physical therapy which he started 2 weeks ago and feels that is beneficial for her. She was strongly encouraged to refrain from over exerting herself physical therapy. We reviewed her x-rays which show an unchanged stable cage between L5-S1 with [address] in place. Full strength 5/5 UE / LE. Mobility is intact. Sensation grossly intact. Patient is able to ambulate well, rises from a seated position without difficulty. Incision site is closed, well healing, with no signs of drainage. We do not need to continue follow-up for Sapna. She may be discharged as a patient and was informed that she can call us back if she needs to see us in the future. Hiram Dela Cruz MD,PhD [facility] Coding Level of Care Code Global (46246) Diagnoses Status post lumbar and lumbosacral fusion by anterior technique Z98.1
== END 2022-12-18 13:50 | disposition home or self-care (01) ==
PROVIDERS: PCP Internal Medicine; Visit Provider Physician Assistant
DX: Z98.1 Arthrodesis status (principal)
CPT/HCPCS: 99024

== ENCOUNTER 2023-05-20 11:52 | Outpatient (AMB) | payer MEDICARE, SELFPAY ==
--- NOTE | 2023-05-20 12:02 | MHC.OFFVIS ---
Intake Vital Signs 05/20/23 12:03 05/20/23 12:31 Height 5 ft 5 in Weight 162 lb BMI 27.0 BP 174/77 H 138/80 Blood Pressure Location Lt brachial Rt brachial Position Sitting Sitting Pulse 88 88 Intake Visit Reasons: Colonoscopy screening Intake Note: Patient new consult for pre colonoscopy screening. Patient denies any GI issues. [employer]ologist [employer] Required: Yes [employer]ologist [employer] Name: [id number] Accompanied by: Self / Same As Patient Allergies diphenhydramine [From Benadryl Allergy] Allergy (Intermediate, Verified 05/20/23 12:00) heart palpatations Medication List - Last Reconciled 05/20/23 by Shonda Pena PA-C bisacodyl (Dulcolax (bisacodyl)) 20 mg (4 x 5 mg) PO ONCE PRN 1 day cholecalciferol (vitamin D3) (Vitamin D3) 25 mcg PO DAILY cyanocobalamin (vitamin B-12) (Vitamin B-12) 1,000 mcg PO DAILY gabapentin 600 mg PO BID magnesium 200 mg PO DAILY cwxjp-3c-hiv-epa-fish oil 350-400 mg 2 caps PO DAILY polyethylene glycol 3350 (Miralax) 238 grams PO ONCE PRN 1 day vitamin E 268 mg PO DAILY HPI HPI Comments History of Present Illness Details A 72 y/o female referred for EGD and colonoscopy- She says she had H.pylori- she had been treated-she is worried about damage - sx come and go- she has had previously as well. She has a good appetite- not typically noting heartburn- no nausea or vomiting. Bowels are normal Admits to anxiety- No N/V/ D/ abdominal pain- fever or chills [facility] Medical History (Updated 05/20/23 @ 14:30 by Shonda Pena PA-C) History of sciatica Arthritis Neuropathy Calcaneal spur Post-menopause Abnormal gait Weakness of right lower extremity Seborrheic keratosis Pruritus Peroneal neuropathy H/O onychomycosis Increased urinary frequency HTN (hypertension) Contusion CKD (chronic kidney disease) stage 3, GFR 30-59 ml/min Benign neoplasm of soft tissue Right sacral radiculopathy Neuroforaminal stenosis of lumbar spine DDD (degenerative disc disease), lumbar Gait disturbance Hyperlipidemia Lumbar radiculopathy Tarsal tunnel syndrome of both lower extremities Surgical History History of back surgery History of carpal tunnel surgery of right wrist Hx of hysterectomy H/O colonoscopy Social History Household Members: None Housing: Apartment Are you a primary career manager to a significant other at home: No Do you presently have visiting nurse or other home services: No Patient Tobacco Use Status: Never used Tobacco service: No Review of Systems Const All systems reviewed & are unremarkable except as noted in HPI and below Card Denies chest pain and Denies dyspnea Resp Denies dyspnea GI Denies abdominal pain, Denies hematochezia, Reports dyspepsia, Denies heartburn, Denies nausea and Denies vomiting Psych Reports anxiety Physical Exam Vital Signs: Last Vital Signs Pulse 88 05/20/23 12:31 BP 138/80 05/20/23 12:31 BMI result Body Mass Index 27.0 Const General: cooperative, healthy appearing, comfortable and no acute distress Orientation/consciousness: patient oriented x3 Limitations: no limitations Resp Effort & Inspection: normal respiratory effort and able to speak in complete sentences Auscultation: clear to auscultation bilaterally, no rales, no rhonchi and no wheezes Cardio Rate: regular rate Rhythm: regular rhythm Heart sounds: S1 normal heart sound present and S2 normal heart sound present GI Palpation (GI): Soft to palpation and nontender Auscultation: normal bowel sounds Skin General skin exam: no rashes or lesions noted Neuro General: patient oriented x3 Extrem General: Yes full ROM Psych Appearance: grossly normal Mental Status: mental status grossly normal Speech and movement: Normal speech and movement present and Clear speech present Affect: Anxious affect present Attitude: cooperative Thought process: Normal thought process present Thought content: Normal thought content present Assessment & Plan Assessment & Plan (1) Encounter for screening colonoscopy: Code(s): Z12.11 - Encounter for screening for malignant neoplasm of colon (2) History of Helicobacter pylori infection: Comment: txd recurrent EGD- asess further r/o Code(s): Z86.19 - Personal history of other infectious and parasitic diseases Plan: EGD Plan EGD/ coln MG prep Orders: Orders EGD/Cascadia Combo - GI Use Only Today Medications: New bisacodyl (Dulcolax (bisacodyl)) Day before procedure @ 12 noon Take 4 tablets by mouth followed by large glass of water 20 mg (4 x 5 mg) PO ONCE PRN 4 tabs 0RF colonoscopy prep 1 day Z12.11 - Encounter for screening for malignant neoplasm of colon polyethylene glycol 3350 (Miralax) Take as directed by mouth the day before your procedure. 238 grams PO ONCE PRN 238 grams 0RF laxative effect 1 day Patient Instructions: EGD/ colon MG prep, reviewed, lit given discussed procedures-rare risks, need for escort- Call with concerns- Coding Level of Care Code New Pt Level 3 (63784) Diagnoses Encounter for screening colonoscopy Z12.11 History of Helicobacter pylori infection Z86.19 Time Spent (min) 30 Comment [id number] interp
[2023-05-20 12:03] VITALS: BP 174/77; PULSE 88; BMI 27.0
[2023-05-20 12:31] VITALS: BP 138/80; PULSE 88
== END 2023-05-20 12:51 | disposition home or self-care (01) ==
PROVIDERS: PCP Internal Medicine; Visit Provider Physician Assistant
DX: Z86.19 Personal history of other infectious and parasitic diseases (principal); Z12.11 Encounter for screening for malignant neoplasm of colon
CPT/HCPCS: 99024

== ENCOUNTER → 2023-05-20 11:52 | Outpatient (BNVA) | payer MEDICARE, SELFPAY | PROVIDERS: PCP Internal Medicine; Visit Provider Physician Assistant | DX: Z12.11 Encounter for screening for malignant neoplasm of colon (principal); Z86.19 Personal history of other infectious and parasitic diseases | CPT/HCPCS: 99212 ==

== ENCOUNTER 2024-03-12 10:09 | Day surgery (SDC) | payer MEDICARE, SELFPAY ==
[2023-11-19 12:26] VITALS: BMI 27.0
--- NOTE | 2024-03-10 09:22 | P.CONAN_ITS ---
HPI - Anesthesia Eval Consult details Narrative: 73yo F for ?Upper Endoscopy and Colonoscopy PMF Active Problems Active Problems: All Active Problems History of Helicobacter pylori infection (Acute) Encounter for screening colonoscopy (Acute) Status post lumbar and lumbosacral fusion by anterior technique (Acute) Back pain of lumbar region with sciatica (Acute) Past Medical History Medical History (Updated 05/20/23 @ 14:30 by Shonda Pena PA-C) History of sciatica Arthritis Neuropathy Calcaneal spur Post-menopause Abnormal gait Weakness of right lower extremity Seborrheic keratosis Pruritus Peroneal neuropathy H/O onychomycosis Increased urinary frequency HTN (hypertension) Contusion CKD (chronic kidney disease) stage 3, GFR 30-59 ml/min Benign neoplasm of soft tissue Right sacral radiculopathy Neuroforaminal stenosis of lumbar spine DDD (degenerative disc disease), lumbar Gait disturbance Hyperlipidemia Lumbar radiculopathy Tarsal tunnel syndrome of both lower extremities Family History Family history of problems with anesthesia: No (Daughter - PONV) Surgical History Surgical History History of back surgery History of carpal tunnel surgery of right wrist Hx of hysterectomy H/O colonoscopy History of Problems with Anesthesia: No (PONV) Social History Social History Household Members: None Housing: Apartment Are you a primary insurance healthcare consultant to a significant other at home: No Do you presently have visiting nurse or other home services: No Patient Tobacco Use Status: Never used Tobacco service: No Meds Allergies Allergy/AdvReac Type Severity Reaction Status Date / Time diphenhydramine Allergy Intermediate heart Verified 05/20/23 12:00 [From Benadryl Allergy] palpatations Home Medications ?Medication ?Instructions ?Recorded ?Confirmed ?Last Taken ?Type cholecalciferol (vitamin D3) 25 25 mcg PO DAILY 10/01/22 05/20/23 Unknown History mcg (1,000 unit) tablet (Vitamin D3) cyanocobalamin (vitamin B-12) 1,000 mcg PO DAILY 10/01/22 05/20/23 Unknown History 1,000 mcg tablet (Vitamin B-12) gabapentin 300 mg capsule 600 mg PO BID 10/01/22 05/20/23 Unknown History pvuha8-mbq-uhr-other kfacr8u-snyi 2 cap PO DAILY 10/01/22 05/20/23 10/08/22 History oil 350 mg-400 mg capsule vitamin E 268 mg (400 unit) capsule 268 mg PO DAILY 10/01/22 05/20/23 Unknown History magnesium 200 mg tablet 200 mg PO DAILY 10/02/22 05/20/23 Unknown History Exam Height,Weight and Vital Signs: Height 5 ft 5 in Weight 73.482 kg Assessment and Plan Assessment Anesthesia Assessment: Chart Reviewed Final Anesthetic Review Family History of Problems with Anesthesia: No (Daughter - PONV) History of Problems with Anesthesia: No (PONV)
--- OUTSIDE RECORDS SUMMARY | 2024-03-12 10:21 | XMS_ITS ---
Author Name [facility] Organization Unknown Results Test Name/Text Value Interpretation Date Range Source C DIFF FINAL RESULT Abnormal [id number] - [facility] CREAT SERPL [facility] 0.8mg/dL Normal [id number] 0.5 - 1 [facility] CALCIUM SER[facility] 9.7mg/dL Normal [id number] 8.4 - 10 .2 [facility] SODIUM SER[facility] 140mmol/L Normal [id number] 135 - 145 [facility] ANION GAP [facility] 5mmol/L Normal [id number] 5 - 14 [facility] Glomerular filtration rate/1.73 sq M. predicted 78 Normal [id number] 60 - [facility] HCO3 SER [facility] 29mmol/L Normal [id number] 24 - 32 [facility] GLUCOSE P FAST SERPL [facility] 89mg/dL Normal [id number] 7 0 - 99 [facility] BUN SER[facility] 20mg/dL Above high normal [id number] 7 - 17 [facility] CHLORIDE SERPL [facility] 106mmol/L Normal [id number] 98 - 10 7 [facility] POTASSIUM SERPL [facility] 4.4mmol/L Normal [id number] 3.5 - 5.1 [facility] Normal [id number] C [facility] History of Medication Use Medication Directions Dispensed Refills Start Date End Date Stat ahiysu-uaqfnhhrz-turoqd ium sulfates (Suprep Bowel Prep Kit) 17.5-3.13-1.6 GM/177ML Solution solution Follow directions provided by physician's office. 07/18/2023 active gabapentin (NEURONTIN) 600 MG tablet Take 600 mg by mouth 3 (three) times a day. 07/18/2023 active naproxen (NAPROSYN) 500 MG tablet Take 500 mg by mouth 2 (two) times a day with meals. Take with meals or food to reduce stomach upset. 07/18/2023 active naproxen (NAPROSYN) 500 MG tablet Take 500 mg by mouth daily. 06/05/2023 active SUPREP BOWEL PREP KIT 17.5-3.13-1.6 GM/180ML SOLN 06/05/2023 active gabapentin (NEURONTIN) 600 MG tablet 06/05/2023 active acetaminophen (TYLENOL) 325 MG tablet Take 2 tablets (650 mg total) by mouth every 6 (six) hours as needed for pain. 06/05/2023 active Cyanocobalamin (VITAMIN B12 PO) Take 1 tablet by mouth daily. 06/05/2023 active vitamin E 400 UNIT capsule Take 400 Units by mouth daily. 06/05/2023 active gabapentin (NEURONTIN) 300 MG capsule 06/05/2023 active cholecalciferol (VITAMIN D3) 1000 units tablet Take 1,000 Units by mouth daily. 06/05/2023 active OMEGA-3 FATTY ACIDS PO Take 800 mg by mouth daily. 06/05/2023 active Problems Problem Status Onset Date Problem Type Date of Resoluti on Source Scoliosis active 2016-11-20 ProblemAct [facility] Back pain with sciatica active 2016-11-20 ProblemAct [facility] Breast cancer screening by mammogram active EncounterDiagnosisAct [facility] H
[2024-03-12 10:33] VITALS: BMI 26.6
[2024-03-12 10:39] VITALS: BP 146/77; PULSE 80; RESP 15; TEMP 36.5; O2SAT 98
--- NOTE | 2024-03-12 10:45 | MHC.SHP ---
Pre-Procedural Eval Section A - 24 Hr Update-Section A only Date of Service: 03/12/24 Section B - Complete if H&P > 30 days Chief Complaint: H Pylori, polyps Details of Present Illness: History of sciatica Arthritis Neuropathy Calcaneal spur Post-menopause Abnormal gait Weakness of right lower extremity Seborrheic keratosis Pruritus Peroneal neuropathy H/O onychomycosis Increased urinary frequency HTN (hypertension) Contusion CKD (chronic kidney disease) stage 3, GFR 30-59 ml/min Benign neoplasm of soft tissue Right sacral radiculopathy Neuroforaminal stenosis of lumbar spine DDD (degenerative disc disease), lumbar Gait disturbance Hyperlipidemia Lumbar radiculopathy Tarsal tunnel syndrome of both lower extremities Surgical History History of back surgery History of carpal tunnel surgery of right wrist Hx of hysterectomy H/O colonoscopy Present Medications: see Short Stay Collaborative assessment Allergies: Allergies Allergy/AdvReac Type Severity Reaction Status Date / Time diphenhydramine Allergy Intermediate heart Verified 05/20/23 12:00 [From Benadryl Allergy] palpatations Review of Systems Review of Systems Comment: Ten point ROS negative Exam Exam Comment: Gen appear: No acute distress HEENT: no icterus Chest: No overt resp distress Abd: soft, nontender, nondistended Psych: Stable affect, answering questions appropriately Neuro: A/Ox3 noted to move all extremities spontaneously Ext: no peripheral edema Plan Diagnosis/Plan: Unchanged I have reviewed the history and physical and performed a pertinent physical examination on my patient. No changes have occurred unless specified. Time Spent With Patient Time: Total time managing care of this patient today ____ minutes.
[2024-03-12] MEDS: Lactated Ringers 1,000 ML 100 ML IVCONT (11:03)
--- NOTE | 2024-03-12 11:51 | P.CONAN_ITS ---
[facility] Active Problems Active Problems: All Active Problems History of Helicobacter pylori infection (Acute) Encounter for screening colonoscopy (Acute) Status post lumbar and lumbosacral fusion by anterior technique (Acute) Back pain of lumbar region with sciatica (Acute) Past Medical History Medical History History of sciatica Arthritis Neuropathy Calcaneal spur Post-menopause Abnormal gait Weakness of right lower extremity Seborrheic keratosis Pruritus Peroneal neuropathy H/O onychomycosis Increased urinary frequency HTN (hypertension) Contusion CKD (chronic kidney disease) stage 3, GFR 30-59 ml/min Benign neoplasm of soft tissue Right sacral radiculopathy Neuroforaminal stenosis of lumbar spine DDD (degenerative disc disease), lumbar Gait disturbance Hyperlipidemia Lumbar radiculopathy Tarsal tunnel syndrome of both lower extremities Functional capacity: independent ambulation Patient : No Family History Family history of problems with anesthesia: No (Daughter - PONV) Surgical History Surgical History Hx of sinus surgery History of back surgery History of carpal tunnel surgery of right wrist Hx of hysterectomy H/O colonoscopy History of Problems with Anesthesia: No (PONV) Social History Social History Household Members: None Housing: Apartment Are you a primary personal care home administrator to a significant other at home: No Do you presently have visiting nurse or other home services: No Patient Tobacco Use Status: Never used Tobacco Use of substances other than those prescribed or required for medical reasons: No Are you DNR?: No Advance Directives: No Advance Directives Information Provided: Yes service: No Meds Allergies Allergy/AdvReac Type Severity Reaction Status Date / Time diphenhydramine Allergy Intermediate heart Verified 05/20/23 12:00 [From Benadryl Allergy] palpatations Active Medications: Current Medications Lactated Ringer's (Lr) 1,000 mls @ 100 mls/hr IVCONT .Q10H RAFAELA Last Admin: 03/12/24 11:03 Dose: 100 mls/hr Home Medications ?Medication ?Instructions ?Recorded ?Confirmed ?Last Taken ?Type cholecalciferol (vitamin D3) 25 25 mcg PO DAILY 10/01/22 03/12/24 Unknown History mcg (1,000 unit) tablet (Vitamin D3) cyanocobalamin (vitamin B-12) 1,000 mcg PO DAILY 10/01/22 03/12/24 Unknown History 1,000 mcg tablet (Vitamin B-12) gabapentin 300 mg capsule 600 mg PO BID 10/01/22 03/12/24 03/12/24 09:00 History vitamin E 268 mg (400 unit) capsule 268 mg PO DAILY 10/01/22 03/12/24 Unknown History magnesium 200 mg tablet 200 mg PO DAILY 10/02/22 03/12/24 Unknown History naproxen 500 mg tablet 500 mg PO BID PRN Back Pain 03/12/24 03/12/24 Unknown History Exam Height,Weight and Vital Signs: Height 5 ft 5 in Weight 72.575 kg Last Vital Signs Temp 97.7 F 03/12/24 10:39 Pulse 80 03/12/24 10:39 Resp 15 03/12/24 10:39 BP 146/77 H 03/12/24 10:39 Pulse Ox 98 03/12/24 10:39 O2 Del Method Room Air 03/12/24 10:39 Airway Mallampati Class: II TM Dist: >3cm Neck ROM: Full Heart: RRR Lungs: CTA Assessment and Plan Assessment Anesthesia Assessment: Anesthesia Plan Discussed and Chart Reviewed Final Anesthetic Review Family History of Problems with Anesthesia: No (Daughter - PONV) History of Problems with Anesthesia: No (PONV) NPO: Yes ASA Class: II Final Preanesthetic Review: Meds/Allgs Chart Reviewed, Consent Obtained/Reviewed and Anes Risks/Benef Reviewed Patient Risk: Low Procedure Risk: Low Anesthetic Plan Anesthetic Plan: MAC: Disposition: Standard PACU
--- NOTE | 2024-03-12 12:07 | P.OPN-COLO_ITS ---
Colonoscopy Operative Note Operative Note Date of Service: 03/12/24 Narrative: Procedure: Upper endoscopy and colonoscopy Indication: History of H Pylori, Hx of colon polyps Endoscopist: Malka Mack MD Anesthesia Provider: Dr Alida Pride Anesthesia type: MAC Instrument: [id number] and [id number] EGD Procedure:?? The procedure, indications, preparation and potential complications were reviewed with the patient, who indicated understanding and gave written informed consent to proceed. The endoscope was introduced through the mouth, and advanced to the 2nd part of the duodenum. The mucosa was carefully examined on slow withdrawal of the endoscope. The patient tolerated the procedure well. There were no immediate complications.? EGD Findings:? * Esophagus:? A small patch of heterotopic gastric mucosa was noted in the upper esophagus (normal variant), otherwise normal esophageal mucosa was noted. The Z-line was at 35 cm and displaced by a small hiatal hernia with the diaphragmatic pinch at 37 cm. * Stomach:? Normal gastric mucosa. Retroflexion was performed in the cardia. Random cold forceps biopsies were taken from the stomach to r/o H Pylori. * Duodenum:? Multiple erosions, and small healing ulcers with white base were noticed in the duodenal bulb. Cold forceps biopsies were taken for histology. Colonoscopy Procedure:? The patient was then turned for the colonoscopy. A digital rectal exam was performed which was abnormal for external hemorrhoids.? A distal attachment cap was affixed to the tip of the scope and the colonoscope was then inserted through the anus and advanced through the colon and advanced to the cecum at 75 cm and terminal ileum.? Appendiceal orifice and ileocecal valve were identified. Mucosa was carefully examined under high definition white light as the instrument was slowly withdrawn in a retrograde panoramic fashion. Retroflexion was performed in rectum. The procedure was not difficult. The quality of the prep was BBPS: 2+3+2 = adequate Withdrawal time 13 minutes Limitations: No limitations Findings: Mucosa: Normal colon and terminal ileum mucosa. Protruding lesions: * One sessile polyp of size 4 mm noted in the transverse colon. Cold snare polypectomy was performed. The polyp was completely removed and retrieved. * One sessile polyp of size 2 mm noted in the rectum. Cold snare polypectomy was performed. The polyp was completely removed and retrieved. * 12 mm subepithelial nodule noted in the sigmoid colon at 35 cm from the anal orifice. This was unroofed with a cold snare, revealing underlying lipoma. Cold forceps biopsies were performed for histology. * Small internal hemorrhoids without stigmata of recent bleeding. Excavated lesions: Impression: 1. Inlet patch 2. Normal stomach 3. Duodenitis and duodenal ulcers (biopsy) 4. Normal colon and terminal ileum mucosa 5. Total of 2 polyps removed 6. Subepithelial lesion @ 35 cm likely lipoma (biopsy) 7. Internal and external hemorrhoids 8. Diverticulosis Recommendations:?? * Follow-up path results * Avoid NSAIDs. Tylenol is ok. * Start omeprazole 20 once daily x 8-12 weeks * Repeat colonoscopy for CRC screening in 7-10 years if patient in good health.
[2024-03-12 12:11] VITALS: BP 103/55; PULSE 84; RESP 16; TEMP 36.8; O2SAT 96
[2024-03-12 12:25] VITALS: BP 116/60; PULSE 75; RESP 16; O2SAT 98
--- NOTE | 2024-03-12 12:30 | HO.POSTANES ---
Post Anesthesia Evaluation Post Anesthesia Evaluation Date of Service: 03/12/24 Vital Signs: Vital Signs Temp Pulse Resp BP Pulse Ox O2 Del Method 03/12/24 12:11 98.2 F 84 16 103/55 L 96 Room Air 03/12/24 10:39 97.7 F 80 15 146/77 H 98 Room Air Anesthesia: Monitored Mental Status: Awake Pain Control: Satisfactory Nausea/Vomiting: None Hydration: Adequate Anesthesia-Related Issues: No Anes. Related Issues
[2024-03-12 12:40] VITALS: BP 121/62; PULSE 75; RESP 16; TEMP 36.6; O2SAT 99
== END 2024-03-12 13:14 | disposition home or self-care (01) ==
PROVIDERS: PCP Internal Medicine; Visit Provider Internal Medicine
PROC: (CPT 45385; principal; 2024-03-12 12:00)
DX: Z12.11 Encounter for screening for malignant neoplasm of colon (principal); Z86.0101 Personal history of adenomatous and serrated colon polyps; D12.3 Benign neoplasm of transverse colon; K62.1 Rectal polyp; D17.79 Benign lipomatous neoplasm of other sites; K57.30 Diverticulosis of large intestine without perforation or abscess without bleeding; K64.8 Other hemorrhoids; K64.4 Residual hemorrhoidal skin tags; Z86.19 Personal history of other infectious and parasitic diseases; K29.80 Duodenitis without bleeding; K26.9 Duodenal ulcer, unspecified as acute or chronic, without hemorrhage or perforation; K29.50 Unspecified chronic gastritis without bleeding; K44.9 Diaphragmatic hernia without obstruction or gangrene; Q39.8 Other congenital malformations of esophagus; I12.9 Hypertensive chronic kidney disease with stage 1 through stage 4 chronic kidney disease, or unspecified chronic kidney disease; N18.30 Chronic kidney disease, stage 3 unspecified; E78.5 Hyperlipidemia, unspecified; G62.9 Polyneuropathy, unspecified; M54.16 Radiculopathy, lumbar region; R26.9 Unspecified abnormalities of gait and mobility; Z79.899 Other long term (current) drug therapy; Z88.8 Allergy status to other drugs, medicaments and biological substances; Z98.890 Other specified postprocedural states
CPT/HCPCS: 45385; 45380; 43239; 88305; 88342; J2003; J2704

== ENCOUNTER → 2024-03-12 10:09 | Outpatient (BNV) | payer MEDICARE, SELFPAY | PROVIDERS: PCP Internal Medicine; Visit Provider Internal Medicine | DX: Z12.11 Encounter for screening for malignant neoplasm of colon (principal); Z86.0100 Personal history of colon polyps, unspecified; D12.3 Benign neoplasm of transverse colon; D12.8 Benign neoplasm of rectum; K63.89 Other specified diseases of intestine; K57.30 Diverticulosis of large intestine without perforation or abscess without bleeding; K26.9 Duodenal ulcer, unspecified as acute or chronic, without hemorrhage or perforation; K29.80 Duodenitis without bleeding | CPT/HCPCS: 43235; 45380; 45385 ==

== ENCOUNTER 2024-03-30 11:26 | Outpatient (AMB) | payer MEDICARE, SELFPAY ==
--- NOTE | 2024-03-30 11:31 | A.OFFVIS_ITS ---
Vital Signs 03/30/24 11:44 Height 5 ft 5 in Weight 160 lb BMI 26.6 BP 132/70 Blood Pressure Location Lt brachial Position Sitting Pulse 95 Intake Visit Reasons: S/P DOUBLE Intake Note: Sapna presents in the office as a follow up EGD and COLO. CC: Allergies diphenhydramine [From Benadryl Allergy] Allergy (Intermediate, Verified 03/30/24 11:43) heart palpatations HPI Comments Details: 73 y.o F with PMH of H Pylori with duodenal ulcer, chronic LBP who is here for post procedure follow up. Prev [facility] [place] pt. 03/12/24: EGD/colo Impression: 1. Inlet patch 2. Normal stomach 3. Duodenitis and duodenal ulcers (biopsy) 4. Normal colon and terminal ileum mucosa 5. Total of 2 polyps removed 6. Subepithelial lesion @ 35 cm likely lipoma (biopsy) 7. Internal and external hemorrhoids 8. Diverticulosis Recommendations:?? * Follow-up path results * Avoid NSAIDs. Tylenol is ok. * Start omeprazole 20 once daily x 8-12 weeks * Repeat colonoscopy for CRC screening in 7-10 years if patient in good health. Path: A. Duodenum, biopsy: Chronic/non-specific duodenitis with blunted villi and reactive changes; no organisms identified. B. Stomach, random, biopsy: Gastric antral and body mucosa with ectatic vessels and minimal chronic inactive gastritis; negative for H. pylori, intestinal metaplasia and dysplasia. C. Colon, transverse, polyp: Tubular adenoma; negative for high-grade dysplasia and carcinoma. D. Colon, nodule at 35 cm, biopsy: Colonic mucosa with focal prominent adipose tissue suggesting submucosal lipoma (endoscopic correlation necessary). E. Colon, rectal polyp: Colonic mucosa with lymphoid aggregates and no specific change; no adenomatous dysplasia seen 03/30/24: Seen in follow up post procedure. Seen with medical interpreter. Reviewed findings of EGD/colo. Reports prev use of daily naproxen which likely contributed to PUD and duodenal ulcers. Has been on omeprazole 20 BID since egd/colo. [facility] Medical History History of sciatica Arthritis Neuropathy Calcaneal spur Post-menopause Abnormal gait Weakness of right lower extremity Seborrheic keratosis Pruritus Peroneal neuropathy H/O onychomycosis Increased urinary frequency HTN (hypertension) Contusion CKD (chronic kidney disease) stage 3, GFR 30-59 ml/min Benign neoplasm of soft tissue Right sacral radiculopathy Neuroforaminal stenosis of lumbar spine DDD (degenerative disc disease), lumbar Gait disturbance Hyperlipidemia Lumbar radiculopathy Tarsal tunnel syndrome of both lower extremities Surgical History Hx of endoscopy Hx of sinus surgery History of back surgery History of carpal tunnel surgery of right wrist Hx of hysterectomy H/O colonoscopy Social History Household Members: None Housing: Apartment Are you a primary career orientation teacher to a significant other at home: No Do you presently have visiting nurse or other home services: No Patient Tobacco Use Status: Never used Tobacco service: No Review of Systems Const All systems reviewed & are unremarkable except as noted in HPI and below Physical Exam Vital Signs: Last Vital Signs Pulse 95 03/30/24 11:44 BP 132/70 03/30/24 11:44 BMI result Body Mass Index 26.6 No apparent distress Nonicteric Abdomen soft, nondistended Alert and oriented x3, normal gait Assessment & Plan Assessment & Plan (1) Duodenal ulcer: Code(s): K26.9 - Duodenal ulcer, unspecified as acute or chronic, without hemorrhage or perforation Category: Medical Plan Reviewed with the pt tht likely 2/2 NSAID use which she has since discontinued. Given prev hx of H PYlori, can repeat Ag testing to r/o. Plan: - Cont omeprazole x 8 weeks - Check H Pylori 2 weeks after stopping PPI - Since villous blunting noted, will also r/o celiac - If H Pylori +, will call pt for follow up and eradication therapy. Otherwise PRN follow up. Orders: Orders H pylori Ag Stool 2 Months K26.9 - Duodenal ulcer, unspecified as acute or chronic, without hemorrhage or perforation Transglutaminase IgA 2 Months K26.9 - Duodenal ulcer, unspecified as acute or chronic, without hemorrhage or perforation Immunoglobulin A 2 Months K26.9 - Duodenal ulcer, unspecified as acute or chronic, without hemorrhage or perforation Patient Instructions: - Take omeprazole for 2 months total and then STOP - 2 weeks after stopping omeprazole, pls go for blood work and stool test - If H pylori is positive, we will call you for treatment Coding Level of Care Code Est Pt Level 3 (44899) Diagnoses Duodenal ulcer K26.9
[2024-03-30 11:44] VITALS: BP 132/70; PULSE 95; BMI 26.6
== END 2024-03-30 12:07 | disposition home or self-care (01) ==
PROVIDERS: PCP Internal Medicine; Visit Provider Internal Medicine
DX: K26.9 Duodenal ulcer, unspecified as acute or chronic, without hemorrhage or perforation (principal)
CPT/HCPCS: 99213

== ENCOUNTER → 2024-03-30 11:26 | Outpatient (BNVA) | payer MEDICARE, SELFPAY | PROVIDERS: PCP Internal Medicine; Visit Provider Internal Medicine | DX: K26.9 Duodenal ulcer, unspecified as acute or chronic, without hemorrhage or perforation (principal) | CPT/HCPCS: 99212 ==

== ENCOUNTER 2024-05-20 09:58 | Outpatient (REF) | payer MEDICARE, SELFPAY ==
--- OUTSIDE RECORDS SUMMARY | 2024-05-20 11:17 | XMS_ITS | Encounter Summary ---
Author Organization [employer] Address [address] [facility] [address] [place] [address] Care Team Providers Care Pipe Coverer And Insulator Name Role Phone Zamzam Vidal MD Primary Care Provider + Reason for Visit * Reason Onset Date Comments Appointment Request 07/24/2022 Encounter Details Date Type Department Care Team ([facility] st Contact Info) Description 07/24/2022 Telephone [facility] [address] [place], [place] [phone] Zamzam Vidal MD [address] [place] [address] Appointment Request Social History Tobacco Use Types Packs/Day Years Used Date Smoking Tobacco: Never Smokeless Tobacco: Never Alcohol Use Standard Drinks/Week Comments Never 0 (1 standard drink = 0.6 oz pur e alcohol) Depression Answer Date Recorded Patient Health Questionnaire-2 Score 0 06/20/2022 Comments Unknown Sex and Gender Information Value Date Recorded Sex Assigned at Female 01/08/2022 10:31 AM EDT Legal Sex Female 10:31 AM EDT Gender Identity Female 01/08/2022 10:31 AM EDT Sexual Orientation Choose not to disclose 2021 10:31 AM EDT COVID-19 Exposure Response Date Recorded In the last 10 days, have yo u been in contact with someone who was confirmed or suspected to have Coronavirus/COVID-19? No / Unsure 07/26/2022 9:42 AM EDT documented as of this encounter Miscellaneous Notes * Telephone Encounter - Farzana Cazares - 07/24/2022 2:10 PM EDT Tc from pt requesting to r/s today no show appt . documented in this encounter Plan of Treatment Upcoming Encounters Date Type Department Care Team (Late st Contact Info) Description 07/15/2024 10:00 AM EDT Office Visit [facility] [address] [place], [place] [phone] Zamzam Vidal MD [address] [place], [place] [phone] documented as of this encounter Visit Diagnoses Not on filedocumented in this encounter Care Teams Pipe Coverer And Insulator Relationship Specialty Start Date End Date Zamzam Vidal MD [address] [place] [address] [phone] PCP - General Family Medicine 03/11/18 documented as of this encounter
--- OUTSIDE RECORDS SUMMARY | 2024-05-20 11:17 | XMS_ITS | Encounter Summary ---
Author Organization [employer] Address [address] [facility] [address] [place] [address] Care Team Providers Care Sales And Marketing Administrator Name Role Phone Zamzam Vidal MD Primary Care Provider + Reason for Visit * Reason Comments Med Refill Encounter Details Date Type Department Care Team ([facility] st Contact Info) Description 05/31/2023 Refill [facility] [address] [place], [place] [phone] Zamzam Vidal MD [address] [place], [place] [phone] Bacterial infection due to H. pylori Social History Tobacco Use Types Packs/Day Years Used Date Smoking Tobacco: Never Smokeless Tobacco: Never Alcohol Use Standard Drinks/Week Comments Not Currently 0 (1 standard drink = 0.6 oz pur e alcohol) social Housing Stability Answer Date Recorded What is your housing situation today? I have miriam badillo 01/19/[address] you li ve. Do you have problems with any of the following? None of the above 01/19/2023 Food Insecurity Answer Date Recorded Within the past 12 months, y ou worried that your food would run out before you got money to buy more: Never True 01/19/2023 Within the past 12 months,th e food you bought just didn't last and you didn't have enough money to get more: Never True 01/2023 Transportation Answer Date Recorded In the past 12 months, has l ack of transportation kept you from medical appts, meetings, work or from getting things needed for daily living? No 01/19/2023 Utilities Answer Date Recorded In the past 12 months, has t he electric, gas, oil or water company threatened to shut off services in your home? No 01/19/2023 Depression Answer Date Recorded Patient Health Questionnaire-2 Score 0 06/20/2022 Comments Unknown Sex and Gender Information Value Date Recorded Sex Assigned at Female 01/08/2022 10:31 AM EDT Legal Sex Female 10:31 AM EDT Gender Identity Female 01/08/2022 10:31 AM EDT Sexual Orientation Choose not to disclose 2021 10:31 AM EDT documented as of this encounter Plan of Treatment Upcoming Encounters Date Type Department Care Team (Late st Contact Info) Description 07/15/2024 10:00 AM EDT Office Visit [facility] [address] [place] [address] [phone] Zamzam Vidal MD [address] [place] [phone] documented as of this encounter Visit Diagnoses Diagnosis Bacterial infection due to H. pylori Helicobacter pylori (H. pylori) documented in this encounter Care Teams Sales And Marketing Administrator Relationship Specialty Start Date End Date Zamzam Vidal MD [address] [place] [address] [phone] PCP - General Family Medicine 03/11/18 documented as of this encounter
--- OUTSIDE RECORDS SUMMARY | 2024-05-20 11:17 | XMS_ITS | Encounter Summary ---
Author Organization [employer] Address [address] [facility] [address] [place] [address] Care Team Providers Care Manager Of Construction Name Role Phone Zamzam Vidal MD Primary Care Provider + Reason for Visit * Reason Onset Date Comments Med Refill 03/29/2023 Encounter Details Date Type Department Care Team ([facility] st Contact Info) Description 03/29/2023 Telephone [facility] [address] [place], [place] [phone] Zamzam Vidal MD [address] [place], [place] [phone] Med Refill Social History Tobacco Use Types Packs/Day Years [...] encounter Miscellaneous Notes * Telephone Encounter - Jenny De La Torre LPN - 03/29/2023 1:09 PM EST Medications pended to PCP with updated pharmacy. * Telephone Encounter - Sharon Perry - 03/29/2023 12:48 PM EST TC from pt requesting medication refill to be re send due to [facility] is going to take a few days. amoxicillin (Amoxil) 500 MG capsule clarithromycin (Biaxin) 500 MG tablet omeprazole OTC (PriLOSEC OTC) 20 MG EC tablet To be sent to: [id number] - [address] AT [facility] documented in this encounter Plan of Treatment Upcoming Encounters Date Type Department Care Team (Late st Contact Info) Description 07/15/2024 10:00 AM EDT Office Visit [facility] [address] [place] [phone] Zamzam Vidal MD [address] [place], [place] [phone] documented as of this encounter Visit Diagnoses Not on filedocumented in this encounter Care Teams Manager Of Construction Relationship Specialty Start Date End Date aZmzam Vidal MD [address] [place], [place] [phone] PCP - General Family Medicine 03/11/18 documented as of this encounter
--- OUTSIDE RECORDS SUMMARY | 2024-05-20 11:17 | XMS_ITS | Encounter Summary ---
Author Organization [employer] Address [address] [facility] [address] [place] [address] Care Team Providers Care Appeals Referee Name Role Phone Zamzam Vidal MD Primary Care Provider + Reason for Visit * Reason Comments Med Refill Encounter Details Date Type Department Care Team ([facility] Contact Info) Description 08/22/2023 Refill [facility] [address] [place], [place] [phone] Zamzam Vidal MD [address] [place], [place] [phone] Social History Tobacco Use Types Packs/Day Years Used Date Smoking Tobacco: Never Smokeless Tobacco: Never Alcohol Use Standard Drinks/Week Comments Not Currently 0 (1 standard drink = 0.6 oz pur e alcohol) social Housing Stability Answer Date Recorded What is your housing situation today? I have miriam badillo 08/12/[address] you li ve. Do you have problems with any of the following? None of the above 08/12/2023 Food Insecurity Answer Date Recorded Within the past 12 months, y ou worried that your food would run out before you got money to buy more: Never True 08/12/2023 Within the past 12 months,th e food you bought just didn't last and you didn't have enough money to get more: Never True 05/2023 Transportation Answer Date Recorded In the past 12 months, has l ack of transportation kept you from medical appts, meetings, work or from getting things needed for daily living? No 08/12/2023 Utilities Answer Date Recorded In the past 12 months, has t he electric, gas, oil or water company threatened to shut off services in your home? No 08/12/2023 Depression Answer Date Recorded Patient Health Questionnaire-2 [...] 07/15/2024 10:00 AM EDT Office Visit [facility] [address] [place], [place] [phone] Zamzam Vidal MD [address] [place] [phone] documented as of this encounter Visit Diagnoses Not on filedocumented in this encounter Care Teams Appeals Referee Relationship Specialty Start Date End Date Zamzam Vidal MD [address] [place] [phone] PCP - General Family Medicine 03/11/18 documented as of this encounter
--- OUTSIDE RECORDS SUMMARY | 2024-05-20 11:17 | XMS_ITS | Clinical Summary ---
[facility] Address [address] [place] [address] Care Team Providers Care Bacteriologist Fishery Name Role Phone Zamzam Vidal MD Primary Care Provider [phone] Surgical History Surgery Date Site/Laterality Comments OOPHORECTOMY PROCEDURE:OOPHORECTOMY HYSTERECTOMY PROCEDURE:HYSTERECTOMY BACK SURGERY PROCEDURE:BACK SURGERY CARPAL TUNNEL RELEASE Right PROCEDURE:CARPAL TUNNEL RELEASE SINUS SURGERY PROCEDURE:SINUS SURGERY COLONOSCOPY 10/07/2017 N/A PROCEDURE:COLONOSCOPY;COMMENT:Procedu re: COLONOSCOPY; Surgeon: Mat Delgado MD; Location: [facility]; Service: Gastroenterology; Laterality: N/A; LUMBAR FUSION 10/17/2016 Left PROCEDURE:LUMBAR FUSION;COMMENT:Procedure: L2-3, L3-4 AND L4-5 FUSION SPINE LUMBAR - DLIF; Surgeon: Dom Lion MD; Location: [facility]OM; Service: Spine; Laterality: Left; LUMBAR LAMINECTOMY 10/17/2016 Posterior PROCEDURE:LUMBAR LAMINECTOMY;COMMENT:Procedure: L2, L3, L4, L5 LUMBAR DECOMPRESSION POSTERIOR; Surgeon: Dom Lion MD; Location: [facility]; Service: Spine; Laterality: Posterior; Medical History Medical History Date Comments PONV (postoperative nausea and vomiting) DX:PONV (postoperative nausea and vomiting) Rheumatoid arthritis (CMS/HCC) D X:Rheumatoid arthritis (HCC) Peripheral neuropathy DX:Periphe ral neuropathy Colon polyp DX:Colon polyp Family History Medical History Relation Name Comments Breast cancer Mother Cancer Mother Diabetes Mother Hypertension Mother Breast cancer Sister Cancer Sister Diabetes Sister Relation Name Status Comments Mother Sister Social History Tobacco Use Types Packs/Day Years Used Date Smoking Tobacco: Never Smokeless Tobacco: Never Alcohol Use Standard Drinks/Week Comments No 0 (1 standard drink = 0.6 oz pur e alcohol) Comments Unknown Sex and Gender Information Value Date Recorded Sex Assigned at Not on file Legal Sex Female 10:26 AM EST Gender Identity Not on file Sexual Orientation Not on file Obstetrics History Plan of Treatment Health Maintenance Due Date Last Done Comments DTaP,Tdap,and Td Vaccines (1 - Tdap) 1968 Pneumococcal Vaccine: 50+ Years (1 of 1 - PCV) 07/20/1999 Zoster Vaccines (1 of 2) 07/20/1999 Colorectal Cancer Screening: Colonoscopy 02/06/2022 Depression Screening 02/06/2022 Falls Risk Assessment 02/06/2022 Hepatitis C Screening 02/06/2022 Social Influencers of Health Screening 02/06/2022 COVID-19 Vaccine ( season) 2023 Influenza Vaccine (#1) 2023 RSV Immunization Patients 60+ Years Old (1 - 1-dose 75+ series) 2024 Breast Cancer Screening 05/28/2025 05/29/19 24, 05/29/2023, 05/21/2022, Additional history exists Cholesterol Screening (Lipid Panel) 04/23/2027 04/23/2022, 05/15/2021, 04/05/2020, Additional history exists Osteoporosis Screening (Bone Density Screening) 04/29/2029 04/29/2019 HIB Vaccines Aged Out No longer eligi ble based on patient's age to complete this topic HPV Vaccines Aged Out No longer eligi ble based on patient's age to complete this topic Hepatitis A Vaccines Aged Out No long er eligible based on patient's age to complete this topic Hepatitis B Vaccines Aged Out No long er eligible based on patient's age to complete this topic IPV Vaccines Aged Out No longer eligi ble based on patient's age to complete this topic MMR Vaccines Aged Out No longer eligi ble based on patient's age to complete this topic Meningococcal ACWY Vaccine Aged Out N o longer eligible based on patient's age to complete this topic Meningococcal B Vacine Aged Out No lo nger eligible based on patient's age to complete this topic RSV Immunization Patients Under 20 months Aged Out No longer eligible based on patient's age to complete this topic Varicella Vaccines Aged Out No longer eligible based on patient's age to complete this topic Procedures Procedure Name Priority Date/Time Associated Diagnosis Comments MAMMOGRAM SCREENING BILATERAL 3D MANNY WITH CAD Routine 05/29/2023 9:54 AM EDT Encounter for screening mammogram for malignant neoplasm of breast BONE DENSITY STUDY Routine 04/29/2019 9: 29 AM EST Asymptomatic menopausal state Disorder of bone, unspecified from Last 3 Months or Most Recently Relevant to Health Maintenance Results * MAMMOGRAM SCREENING BILATERAL 3D MANNY WITH CAD (05/29/2023 9:54 AM EDT) Anatomical Region Laterality Modality Mammography 04/22/2023 12:1 9 PM EST Narrative 05/29/2023 10:08 AM EDT This is a summary report. The complete report is available in the patient's medical record. If you cannot access the medical record, please contact the sending organization for a detailed fax or copy. EXAM PERFORMED: MAMMOGRAM SCREENING BILATERAL 3D MANNY WITH CAD EXAM HISTORY: Screening COMPARISON: 05/21/2022 TECHNIQUE: Bilateral full field digital mammography synthesized (2-D) and Tomosynthesis (3-D) was performed using standard CC and MLO projections. FINDINGS: There are no dominant mass lesions, skin thickening, or nipple retraction. No cluster of suspicious microcalcifications is seen. There are occasional typically benign calcifications. BREAST DENSITY: ??Scattered fibroglandular densities within the breast parenchyma (25-50% fibroglandular tissue: Density B). ?? IMPRESSION: No radiographic evidence of malignancy. The results of this examination have been communicated to the patient through a lay letter in accordance with the Mammography Quality Standards Act. BI-RADS Category 2: Benign Session: Examination and interpretation performed during a separate session. 3342 F Report reviewed and signed by : Dr. Skylar Moncada MD on 05/29/2023 10:08 AM. Workstation Name - [id number] Procedure Note Skylar Moncada MD - 10/28/2023 This is a summary report. The complete report is available in thepatient's medical record. If you cannot access the medical record, pleasecontact the sending organization for a detailed fax or copy. EXAM PERFORMED: MAMMOGRAM SCREENING BILATERAL 3D MANNY WITH CAD EXAM HISTORY: Screening COMPARISON: 05/21/2022 TECHNIQUE: Bilateral full field digital mammography synthesized (2-D) andTomosynthesis (3-D) was performed using standard CC and MLO projections. FINDINGS: There are no dominant mass lesions, skin thickening, or nipple retraction.No cluster of suspicious microcalcifications is seen. There are occasional typically benign calcifications. BREAST DENSITY: Scattered fibroglandular densities within the breastparenchyma (25-50% fibroglandular tissue: Density B). IMPRESSION: No radiographic evidence of malignancy. The results of this examination have been communicated to the patientthrough a lay letter in accordance with the Mammography Quality StandardsAct. BI-RADS Category 2: Benign Session: Examination and interpretation performed during a separatesession. 3342 F Report reviewed and signed by : Dr. Skylar Moncada MD on 05/29/2023 10:08AM. Workstation Name - [id number] Zamzam Vidal MD IMG BI PROCEDURES Final Resu lt * BONE DENSITY STUDY (04/29/2019 9:29 AM EST) Anatomical Region Laterality Modality Bone Densitometr y 02/11/2019 9:54 AM EST Narrative 04/30/2019 8:29 AM EST EXAM PERFORMED: Bone density study DEXA EXAM HISTORY: Postmenopausal screening. TECHNIQUE: The [employer] system utilized for DEXA images Findings: LUMBAR SPINE: ?? Bone mineral density (BMD) measured from L1-L2 is 1.303 g/cm2. This correlates with a Z-score of 2.5 and a T-score of 1.1. LEFT HIP: Bone mineral density (BMD) measured in the femoral neck is 1.087 g/cm2. This correlates with a Z-score of 1.8 and a T-score of 0.3. IMPRESSION: 1. ??Lumbar spine: ??Normal bone density. 2. ??Hip: ??Normal bone density. PLEASE NOTE: ?? 1) ??The World Health Organization defines low BMD as follows: ?T-score ? Normal ? > -1 Osteopenia ? < -1 and ??> - 2.5 Osteoporosis ? < -2.5 without fractures Established osteoporosis ? < -2.5 with fractures 2) ??In general, you may wish to consider: ? Diagnosis ?Treatment ?Follow-up DEXA ?Normal BMD ?Prevention ?2-3 years ?Osteopenia ?Prevention/therapy ?1-2 years ?Osteoporosis ?Therapy ? Yearly 3) ??Fracture risk estimated from the T-score is more accurate for vertebral fractures (often spontaneous) than for hip fractures. ?? 4) ??The next DEXA scan of this patient should include the following sites: Lumbar spine, hip. Session: Separate Report reviewed and signed by : Dr. Makeda Ortiz MD on 04/30/2019 8:29 AM. Workstation Name - [id number] Procedure Note Makeda Ortiz MD - 03/04/2022 EXAM PERFORMED: Bone density study DEXA EXAM HISTORY: Postmenopausal screening. TECHNIQUE: The [employer] system utilized for DEXA images Findings: LUMBAR SPINE: Bone mineral density (BMD) measured from L1-L2 is 1.303 g/cm2. This correlates with a Z-score of 2.5 and a T-score of 1.1. LEFT HIP: Bone mineral density (BMD) measured in the femoral neck is 1.087 g/cm2. This correlates with a Z-score of 1.8 and a T-score of 0.3. IMPRESSION: 1. Lumbar spine: Normal bone density. 2. Hip: Normal bone density. PLEASE NOTE: 1) The World Health Organization defines low BMD as follows: T-score Normal > -1 Osteopenia < -1 and > -2.5 Osteoporosis < -2.5 without fractures Established osteoporosis < -2.5 with fractures 2) In general, you may wish to consider: Diagnosis Treatment Follow-upDEXA Normal BMD Prevention 2-3years Osteopenia Prevention/therapy 1-2years Osteoporosis Therapy Yearly 3) Fracture risk estimated from the T-score is more accurate forvertebral fractures (often spontaneous) than for hip fractures. 4) The next DEXA scan of this patient should include the following sites:Lumbar spine, hip. Session: Separate Report reviewed and signed by : Dr. aMkeda Ortiz MD on 04/30/2019 8:29AM. Workstation Name - [id number] Zamzam Vidal MD IMG DXA PROCEDURES Final Res ult from Last 3 Months or Most Recently Relevant to Health Maintenance Care Teams Bacteriologist Fishery Relationship Specialty Start Date End Date Zamzam Vidal MD [address] [place] [phone] PCP - General Family Medicine 03/09/15
--- OUTSIDE RECORDS SUMMARY | 2024-05-20 11:17 | XMS_ITS | Encounter Summary ---
Author Organization [facility] Address [address] [place] [address] [address] [place] [address] Care Team Providers Care Aquaculture Program Director Name Role Phone Zamzam Vidal MD Primary Care Provider + Reason for Visit * Reason Comments Med Refill Encounter Details Date Type Department Care Team (Late Contact Info) Description 07/04/2022 Refill [facility] [address] [place], [place] [phone] Zamzam Vidal MD [address] [place], [place] [phone] Social History Tobacco Use Types Packs/Day Years [...] suspected to have Coronavirus/COVID-19? No / Unsure 06/20/2022 9:57 AM EDT documented as of this encounter Plan of Treatment Upcoming Encounters Date Type Department Care Team ([facility] Contact Info) Description 07/15/2024 10:00 AM EDT Office Visit [facility] [address] [place] [address] Zamzam Vidal MD [address] [place] [address] documented as of this encounter Visit Diagnoses Not on filedocumented in this encounter Care Teams Aquaculture Program Director Relationship Specialty Start Date End Date Zamzam Vidal MD [address] [place] [address] PCP - General Family Medicine 03/11/18 documented as of this encounter
--- OUTSIDE RECORDS SUMMARY | 2024-05-20 11:17 | XMS_ITS | Encounter Summary ---
Author Organization [facility] Address [address] [facility] 7t [place] [address] Care Team Providers Care Crop Ranch Hand Name Role Phone Zamzam Vidal MD Primary Care Provider + Encounter Details Date Type Department Care Team (Late st Contact Info) Description 05/23/2022 Orders Only [facility] [address] [place] [phone] Indiana Garcia MD [address] [place] [address] [phone] Neuroforaminal stenosis of lumbar spine (Primary Dx) Social History Tobacco Use Types Packs/Day Years Used Date Smoking Tobacco: Never Assessed Comments Unknown Sex and Gender Information Value [...] Description 07/15/2024 10:00 AM EDT Office Visit [facility] [address] [place] [address] [phone] Zamzam Vidal MD [address] [place] [phone] documented as of this encounter Visit Diagnoses Diagnosis Neuroforaminal stenosis of lumbar spine- Primary documented in this encounter Care Teams Crop Ranch Hand Relationship Specialty Start Date End Date Zamzam Vidal MD [address] [place] [phone] PCP - General Family Medicine 03/11/18 documented as of this encounter
--- OUTSIDE RECORDS SUMMARY | 2024-05-20 11:17 | XMS_ITS | Encounter Summary ---
Author Organization [employer] Address [address] [facility] 7t [place] [address] Care Team Providers Care Adult School Teacher Name Role Phone Zamzam Vidal MD Primary Care Provider + Reason for Visit * Reason Onset Date Comments Referral 03/21/2023 Encounter Details Date Type Department Care Team ([facility] st Contact Info) Description 03/21/2023 Telephone [facility] [address] [place], [place] [phone] Zamzam Vidal MD [address] [place] [address] Referral Social History Tobacco Use Types Packs/Day Years Used Date Smoking Tobacco: Never Smokeless Tobacco: Never Alcohol Use Standard Drinks/Week Comments Not Currently 0 (1 standard drink = 0.6 oz pur e alcohol) social Housing Stability Answer Date Recorded What is your housing situation today? I have miriamyuri badillo 01/19/[address] you [...] t he electric, gas, oil or water [employer] threatened to shut off services in your [...] encounter Miscellaneous Notes * Telephone Encounter - Lisa Leyva - 04/04/2023 1:30 PM EST Tc from pt states [facility] has not received referral. Please re fax to [phone] * Telephone Encounter - Zamzam Vidal MD - 03/28/2023 3:53 PM EST Please refer to [facility] * Telephone Encounter - Brionna Aguilar RN - 03/21/2023 3:52 PM EST Noted pt.'s last colonoscopy was September 2017 at in [place], due for 5 year repeat in September 2022. TC placed to pt., pt. Reports she called this facility to attempt to book however they reported that provider no longer worked there therefore she would like to go to [facility]. Advised pt GI referral request would be sent to PCP for overdue colonoscopy. * Telephone Encounter - Lisa Leyva - 03/21/2023 3:16 PM EST Tc from pt requesting a referral to [facility] for colonoscopy. Please contact pt at [phone] documented in this encounter Plan of Treatment Upcoming Encounters Date Type Department Care Team (Late st Contact Info) Description 07/15/2024 10:00 AM EDT Office Visit [facility] [address] [place] [address] Zamzam Vidal MD [address] [place] [address] documented as of this encounter Visit Diagnoses Diagnosis Tubular adenoma of colon- Primary Benign neoplasm of colon documented in this encounter Care Teams Adult School Teacher Relationship Specialty Start Date End Date Zamzam Vidal MD [address] [place] [phone] PCP - General Family Medicine 03/11/18 documented as of this encounter
--- OUTSIDE RECORDS SUMMARY | 2024-05-20 11:17 | XMS_ITS | Encounter Summary ---
Author Organization [employer] Address [address] [place] [address] 7t [place] [address] Care Team Providers Care Value Engineer Name Role Phone Zamzam Vidal MD Primary Care Provider + Reason for Visit * Reason Onset Date Comments FYI 06/05/2022 Encounter Details Date Type Department Care Team ([facility] st Contact Info) Description 06/05/2022 Telephone [facility] [address] [place], [place] [phone] Zamzam Vidal MD [address] [place] [address] FYI Social History Tobacco Use Types Packs/Day Years [...] suspected to have Coronavirus/COVID-19? No / Unsure 06/05/2022 9:32 AM EDT documented as of this encounter Miscellaneous Notes * Telephone Encounter - Tamir Roque - 06/06/2022 9:44 AM EDT Tc from pt returning call per notes, report writer contacted pharmacy to confirmed, pharmacist stated theyre attempt to fill script and script has been covered. Advised will leave a message a FYI. * Telephone Encounter - Nakia Nazario - 06/05/2022 12:59 PM EDT Tc from pt stating that medication olmesartan (Benicar) 5 MG tablet Is not covered by her insurance. Please contact pt at [phone] documented in this encounter Plan of Treatment Upcoming Encounters Date Type Department Care Team (Late st Contact Info) Description 07/15/2024 10:00 AM EDT Office Visit [facility] [address] [place], [place] [phone] Zamzam Vidal MD [address] [place] [address] documented as of this encounter Visit Diagnoses Not on filedocumented in this encounter Care Teams Value Engineer Relationship Specialty Start Date End Date Zamzam Vidal MD [address] [place], [place] [phone] PCP - General Family Medicine 03/11/18 documented as of this encounter
--- OUTSIDE RECORDS SUMMARY | 2024-05-20 11:17 | XMS_ITS | Encounter Summary ---
Author Organization [employer] Address [address] [place] [address] [address] [place] [address] Care Team Providers Care Vice Squad Police Officer Name Role Phone Zamzam Vidal MD Primary Care Provider + Reason for Visit * Reason Onset Date Comments Referral 11/16/2022 Encounter Details Date Type Department Care Team ([facility] st Contact Info) Description 11/16/2022 Telephone [facility] [address] [place], [place] [phone] Zamzam Vidal MD [address] [place] [address] Referral Social History Tobacco Use Types Packs/Day Years Used Date Smoking Tobacco: Never Smokeless Tobacco: Never Alcohol Use Standard Drinks/Week Comments Not Currently 0 (1 standard drink = 0.6 oz pur e alcohol) social Depression Answer Date Recorded Patient Health Questionnaire-2 Score 0 06/20/2022 Comments Unknown Sex and Gender Information Value Date Recorded Sex Assigned at Female 01/08/2022 10:31 AM EDT Legal Sex Female 10:31 AM EDT Gender Identity Female 01/08/2022 10:31 AM EDT Sexual Orientation Choose not to disclose 2021 10:31 AM EDT documented as of this encounter Miscellaneous Notes * Telephone Encounter - Kathy Anthony - 11/22/2022 10:42 AM EDT Tc from Pt regarding message below. Referral has the incorrect facility ([facility] Pt is requesting [facility]. * Telephone Encounter - Brionna Aguilar RN - 11/16/2022 12:33 PM EDT Please see message below regarding PT referral places yesterday, thanks! * Telephone Encounter - Farzana Cazares - 11/16/2022 11:21 AM EDT Tc from pt requesting for physical therapy referral to be faxed to Specialty:[facility] Location:[address] [place] [address] [address], [place] [address] Date&Time: n/a Dog License Officer Supervisor: N/a Pt also informs she spoke with someone in the [facility] office and was inform she may need a PA . Please call to clarify . documented in this encounter Plan of Treatment Upcoming Encounters Date Type Department Care Team (Late st Contact Info) Description 07/15/2024 10:00 AM EDT Office Visit [facility] [address] [place] [phone] Zamzam Vidal MD [address] [place] [phone] documented as of this encounter Visit Diagnoses Not on filedocumented in this encounter Care Teams Vice Squad Police Officer Relationship Specialty Start Date End Date Zamzam Vidal MD [address] [place] [phone] PCP - General Family Medicine 03/11/18 documented as of this encounter
--- OUTSIDE RECORDS SUMMARY | 2024-05-20 11:17 | XMS_ITS | Encounter Summary ---
Author Organization [employer] Address [address] [facility] 7t [place] [address] Care Team Providers Care Changeover Operator Name Role Phone Zamzam Vidal MD Primary Care Provider + Reason for Visit * Reason Comments Med Refill Encounter Details Date Type Department Care Team ([facility] st Contact Info) Description 04/08/2023 Refill [facility] [address] [place], [place] [phone] Zamzam Vidal MD [address] [place], [place] [phone] Heartburn Social History Tobacco Use Types Packs/Day Years [...] Description 07/15/2024 10:00 AM EDT Office Visit [facility] [address] [place] [phone] Zamzam Vidal MD [address] [place] [address] documented as of this encounter Visit Diagnoses Diagnosis Heartburn documented in this encounter Care Teams Changeover Operator Relationship Specialty Start Date End Date Zamzam Vidal MD [address] [place] [address] PCP - General Family Medicine 03/11/18 documented as of this encounter
--- OUTSIDE RECORDS SUMMARY | 2024-05-20 11:17 | XMS_ITS | Encounter Summary ---
Author Organization [employer] Address [address] [facility] [address]t [place] [address] Care Team Providers Care Mapping Supervisor Name Role Phone Zamzam Vidal MD Primary Care Provider + Reason for Visit * Reason Onset Date Comments Imaging Order 04/29/2024 Encounter Details Date Type Department Care Team ([facility] st Contact Info) Description 04/29/2024 Telephone [facility] [address] [place], [place] [phone] Zamzam Vidal MD [address] [place] [address] Imaging Order Social History Tobacco Use Types Packs/Day Years [...] encounter Miscellaneous Notes * Telephone Encounter - Carter Solares RN - 04/29/2024 11:04 AM EST TC placed to patient (via [employer] #[id number]) regarding below request. No answer left voicemail to return call. If patient returns call please inform she does not need new order they will contact her when she is due. If she would like to she can contact [facility] to verify she is on their list for repeat mammo in may. * Telephone Encounter - Fernando Weiss - 04/29/2024 10:15 AM EST Tc from pt stating she needs her annual mammogram and is requesting an order to have it done in may. If any questions you can contact pt at [phone]. (Vietnamese Speaker) documented in this encounter Plan of Treatment Upcoming Encounters Date Type Department Care Team (Late st Contact Info) Description 07/15/2024 10:00 AM EDT Office Visit [facility] [address] [place] [address] Zamzam Vidal MD [address] [place] [address] documented as of this encounter Visit Diagnoses Not on filedocumented in this encounter Care Teams Mapping Supervisor Relationship Specialty Start Date End Date Zamzam Vidal MD [address] [place] [address] PCP - General Family Medicine 03/11/18 documented as of this encounter
--- OUTSIDE RECORDS SUMMARY | 2024-05-20 11:17 | XMS_ITS | Encounter Summary ---
Author Organization [employer] Address [address] [place] [address] 7[address] [place] [address] Care Team Providers Care Duck Bill Operator Name Role Phone Zamzam Vidal MD Primary Care Provider + Reason for Referral * Imaging (Routine) - Authorized Specialty Diagnoses / Procedures Referred By Kolton velazquez Referred To Contact Radiology Diagnoses Screening mammogram for breast cancer Procedures BI Mammogram Screening Tomosynthesis Bilateral Zamzam Vidal MD [address] [place] [address] Phone: tel: fax: [address] Phone: tel: fax: Referral ID Status Reason Start Date Expiration Date V isits Requested Visits Authorized [id number] Authorized 05/06/2024 05/06/2025 1 1 Reason for Visit * Reason Onset Date Comments Referral 05/06/2024 Encounter Details Date Type Department Care Team (Late st Contact Info) Description 05/06/2024 Telephone [facility] [address] [place], [place] [phone] Zamzam Vidal MD [address], [place] [phone] Referral Social History Tobacco Use Types Packs/Day [...] encounter Miscellaneous Notes * Telephone Encounter - Zamzam Vidal MD - 05/06/2024 1:07 PM EST Re mammogram, yes I will send an order to go to [place], please check with Dx specialist that it isscheduled there instead of [facility]. * Telephone Encounter - Joesph Galvez - 05/06/2024 9:06 AM EST Tc from pt requesting referral for a mammogram as pt inform she will like it to go to [facility]. Pt will like to repeat mammogram in may documented in this encounter Plan of Treatment Upcoming Encounters Date Type Department Care Team (Late st Contact Info) Description 07/15/2024 10:00 AM EDT Office Visit [facility] [address] [place] [address] Zamzam Vidal MD [address] [place] [address] Scheduled Orders Name Type Priority Associated Diagnoses Orde r Schedule BI Mammogram Screening Tomosynthesis Bilateral Imaging Routine Screening mammogram for breast cancer Expected: 05/06/2024 (Approximate), Expires: 07/04/2025 documented as of this encounter Visit Diagnoses Diagnosis Screening mammogram for breast cancer- Primary documented in this encounter Care Teams Duck Bill Operator Relationship Specialty Start Date End Date Zamzam Vidal MD [address] [place] [phone] PCP - General Family Medicine 03/11/18 documented as of this encounter
--- OUTSIDE RECORDS SUMMARY | 2024-05-20 11:17 | XMS_ITS | Clinical Summary ---
Author Organization [employer] Address [address] [facility] [address] [place] [address] Care Team Providers Care Plumber Cub Name Role Phone Zamzam Vidal MD Primary Care Provider + Allergies Active Allergy Reactions Criticality Noted Date Comments Diphenhydramine Palpitations,Rash Low 08/17/2016 Other reaction(s): palpitations Medications cyanocobalamin (Vitamin B-12) 1000 MCG tablet Take 1 tablet by mouth in the morning. Active cholecalciferol (Vitamin D-3) 25 MCG (1000 UT) tablet Take 1,000 Units by mouth in the morning. Active omega-3 1000 MG capsule capsule Take 800 mg by mouth in the morning. Active alpha tocopherol (Vitamin E) 400 units capsule Take 400 Units by mouth in the morning. Active zoster vaccine-recombi nant adjuvanted (Shingrix) 50 MCG/0.5ML vaccine Inject 0.5 mL into the shoulder, thigh, or buttocks. 01/20/2019 Active omeprazole (PriLOSEC) [address] capsule TAKE 1 CAPSULE(40 MG) BY MOUTH BEFORE BREAKFAST. DO NOT CRUSH OR CHEW 90 capsule 10/18/2023 Active naproxen (Naprosyn) 500 MG tablet TAKE 1 TABLET BY MOUTH TWICE DAILY WITH FOOD 200 tablet 2 01/01/2024 Active gabapentin (Neurontin) 300 MG capsule Take 2 capsules (600 mg) by mouth 2 times daily. 360 capsule 3 02/27/2024 02/27/20 25 Active Active Problems Problem Noted Date Diagnosed Date Gastroesophageal reflux disease 08/22/2023 Assessment & Plan (10/01/2023 2:14 PM EDT): Start Omeprazole Has fu with GI next month, needs EGD. Helicobacter pylori stool test positive 04/18/19 Assessment & Plan (04/18/2023 12:37 PM EST): S/p PREVPAC Tx, continue omeprazole to complete 2 m Tx Caution w/ high calorie and fat meals Will refer to GI for further evaluation due to wt loss Bacterial infection due to H. pylori 04/18/2023 Assessment & Plan (10/01/2023 2:15 PM EDT): Sp triple abs, improved, has recurrent sxs Restart Omeprazole and fu with GI Hyperglycemia 03/19/2023 Assessment & Plan (03/21/2023 3:44 PM EST): A1c is at goal. I have discussed with patient regarding increasing physicial activity and decrease calorie intake I'll check FBS with next set of labs. To check RBS at next visit. FU with me next visit Heartburn 03/19/2023 Weight loss 03/19/2023 Assessment & Plan (04/18/2023 12:39 PM EST): Stable, unclear if related to H pylori gastritis vs other malignancy Fu w GI for colonoscopy/?EGD Assessment & Plan (03/21/2023 3:44 PM EST): Had episode of diarrhea last month, may have residual malabsorption? Gastritis? Order labs, start sucralfate and fu in 1mo Colonoscopy on 2017 was normal/neg malignancy. At risk for falling 11/15/2022 Assessment & Plan (11/15/2022 2:56 PM EDT): Due to leg weakness, likely from peripheral neuropahty, rsidula lumbar radiculopathy Continue ambulation with cane D/w her re risk of falls, specially inbathroom, declines shower chair due to shower size. Has grab bars. Refer to PT Hyperkalemia 09/20/2022 Assessment & Plan (09/20/2022 12:28 PM EDT): Most likely related to dietary changes in the setting of pt using ARB. Counseled to cut down on potassium rich foods ie avocado, banana, tomato Pt will have repeated BNP next week on presurgical testing Mixed hyperlipidemia 07/25/2022 Calcaneal spur 07/20/2022 Neuropathy involving both lower extremities 07/09 Overview (03/21/2023): NCS on 2018--> BL distal tibial neuropathy across tarsal tunnel. Assessment & Plan (10/01/2023 2:11 PM EDT): Mostly asx on Gabapentin Assessment & Plan (03/21/2023 3:47 PM EST): Persistent even after disc surgery + PT. Refer to neurology for further evaluation, NCS on 2018 showed tarsal tunnel syndrome Ambulation with a cane Assessment & Plan (09/20/2022 12:29 PM EDT): Most likely exacerbated by radiculopathy continue b12 and gabapentin FU with orthopedic surgeon and FU with me PRN Assessment & Plan (07/26/2022 11:29 AM EDT): She seems to have bilateral neuropathy symptoms at this time increase Gabapentin to 600mg BID and fu with orthopedicis FU with me in 1 month Essential hypertension 06/20/2022 Assessment & Plan (10/01/2023 2:13 PM EDT): Controlled. Continue off meds, lost weight due to dietary restrictions Counseled re low salt diet/increase moderate physical activity. Check home BP BIW and prn CP/AVILA/LINDSEY Non smoking patient. Assessment & Plan (04/18/2023 12:38 PM EST): Borderline controlled, she is off olmesartan since she lost wt Counseled re low salt diet/increase moderate physical activity. Check home BP BIW and prn CP/AVILA/LINDSEY Non smoking patient. Counseled to restart olmesartan if BP cont above 140/85 more than 1 m Fu in 3 m Assessment & Plan (03/21/2023 3:39 PM EST): Controlled. Compliant w/meds Continue Olmesartan 5mg Counseled re low salt diet/increase moderate physical activity. Check home BP BIW and prn CP/AVILA/LINDSEY Non smoking patient. Assessment & Plan (09/20/2022 12:29 PM EDT): BP is at goal. Continue olmesartan 10mg daily Counseled re low salt diet/increase moderate physical activity. Check home BP BIW and prn CP/AVILA/LINDSEY Non smoking patient. FU in 6 months Assessment & Plan (07/26/2022 11:29 AM EDT): Uncontrolled. Increase telmisartan to 10mg daily and check BP in one week. fu with me in 4 weeks Counseled re low salt diet/increase moderate physical activity. Check home BP BIW and prn CP/AVILA/LINDSEY Non smoking patient. Assessment & Plan (06/20/2022 11:13 AM EDT): Improving, BP is not at goal yet Will aim for better pain control and FU in 3-4 weeks continue benazepril and FU with me in 3-4 weeks with labs At risk of fracture due to osteoporosis 06/21/19 Postmenopause 06/20/2022 Benign neoplasm of soft tissue 06/19/2022 CKD (chronic kidney disease) stage 3, GFR 30-59 ml/min 06/19/2022 Assessment & Plan (03/21/2023 3:46 PM EST): Resolved, GFR on 2022 remained > 60 FU labs as needed for HTN. Keep CV risk factors under control, see above Increased frequency of urination 06/19/2022 Onychomycosis 06/19/2022 Peroneal neuropathy 06/19/2022 Seborrheic keratosis 06/19/2022 Abnormal gait 06/19/2022 DDD (degenerative disc disease), lumbar 05/08/19 23 Assessment & Plan (09/20/2022 12:28 PM EDT): Pt has significant radiculopathy s/p lumbar discectomy FU with orthopedic surgeon for repated lumbar discectomy FU PRN Assessment & Plan (07/26/2022 11:30 AM EDT): Pt has known disc disease which is most likely the culprit of current symptoms Continue Tramadol, counseled to cut down to 25 mg + tylenol 500mg BID FU with orthopedics Ambulation with A cane to prevent falls. Neuroforaminal stenosis of lumbar spine 05/08/19 Assessment & Plan (06/20/2022 11:14 AM EDT): Apparently stable on gabapentin BID Right sacral radiculopathy 05/08/2022 Tarsal tunnel syndrome of both lower extremities 04/04/2022 Lumbar radiculopathy 04/04/2022 Assessment & Plan (11/15/2022 3:01 PM EDT): Doing well sp L5-S1 ALIF procedure. Continue Naproxen and gabapentin, fu with neurosurgery Ambulation with a cane due to mild leg weakness, refer to PT Will give Influenza IZ today Assessment & Plan (06/20/2022 11:15 AM EDT): Recent CT scan showing L3-L4 radiculopathy and L5-S1 disc disease Will obtain neuorsurgery notes pt has MRI pending Add tramadol 25-50 mg BID PRN pain along with naproxen Counseled regarding warning signs inability to walk, sphincter dysfunction, worsening leg paresthesias, she should go immediately to the ED. Assessment & Plan (04/04/2022 12:45 PM EST): R/o claudication. She has history of lumbar laminectomy more than [address] scan of the L spine and FU with me in 1 month for further evaluation. Hyperlipidemia LDL goal <100 04/04/2022 Assessment & Plan (04/04/2022 12:45 PM EST): We discussed re rx options. She wants to be more strict with life style modifications. Recommended moderate amount of exercise and increased consumption of fruit, vegetables, fish and high fiber foods. We discussed about avoiding consumption of highly saturated fats or trans fats. FU lipids in 6m. Gait disturbance 04/04/2022 Assessment & Plan (11/15/2022 2:57 PM EDT): Likely form peroneal neuropathy? Residual lumbar radiculopathy? Needs PT, gait retraining, eval risk of falls and potentially use of AFO For short time Assessment & Plan (04/04/2022 12:44 PM EST): Continue using OTC ankle brace and recommended to use the cane for ambulation. Will refer to PT for evaluation of gait and recommendation of other ambulatory aids including AFOs or hinge brace. FU in 3-4 months. TSH, B12, Folate and lyme testing is negative Pruritus 05/23/2017 Resolved Problems Problem Noted Date Diagnosed Date Resolved Date Elevated blood pressure reading 06/19/2022 11/15/2022 Lower urinary tract symptoms 06/19/2022 11/15/2022 Weakness of right lower extremity 06/19/2022 11/15/2022 Contusion of toenail 01/13/2018 023 Neuropathy 12/12/2017 11/15/2022 Encounters Date Type Department Care Team Description 05/06/2024 Telephone [facility] [address] [place] [phone] Zamzam Vidal MD Referral 04/29/2024 Telephone [facility] [address] [place] [address] Zamzam Vidal MD Imaging Order 03/17/2024 Telephone [facility] [address] [place] [address] Zamzam Vidal MD Results 03/17/2024 Abstract [facility] [address] [place] [address] Zamzam Vidal MD 03/12/2024 Orders Only GENERIC EXTERNAL DATA DEPARTMENT Provider, Generic External Data 02/27/2024 Refill [facility] [address] [place] [address] Zamzam Vidal MD 02/27/2024 Refill [facility] [address] [place] [address] Zamzam Vidal MD 02/25/2024 Refill [facility] [address] [place] [address] Zamzam Vidal MD from Last 3 Months Immunizations Name Administration Dates Next Due Hep A, Adult 11/27/2013 Influenza High-dose Quadriva lent Preservative Free 11/15/2022,12/06/2021,11/08/2020 Influenza, High Dose Seasona l, Preservative Free 11/26/2016,11/29/2014 Influenza, seasonal, injecta ble, preservative free 05/08/2016 Influenza, trivalent, adjuvanted 11/21/2017 Pneumococcal Conjugate PCV 13 05/02/2015 Pneumococcal Polysaccharide PPSV23 05/08/2016,,01/31/2015 TD (adult), 2 Lf tetanus tox oid, preservative free, adsorbed 09/15/2016 Tdap 09/25/2016,01/31/2015 Social History Tobacco Use Types Packs/Day Years Used Date Smoking Tobacco: Never Smokeless Tobacco: Never Tobacco Cessation:Counseling Given: Not Answered Alcohol Use Standard Drinks/Week Comments Not Currently [...] not to disclose 2021 10:31 AM EDT Last Filed Vital Signs Vital Sign Reading Time Taken Comments Blood Pressure 148/76 08/22/2023 11:46 AM EDT Pulse 100 08/22/2023 11:46 AM EDT Temperature 36.2 ??C (97.1 ??F) 08/22/2023 11:46 AM E DT Respiratory Rate 16 08/22/2023 11:46 AM EDT Oxygen Saturation 99% 03/19/2023 9:52 AM EST Inhaled Oxygen Concentration - - Weight 74 kg (163 lb 2 oz) 08/22/2023 11:46 AM E DT Height 165.1 cm (5' 5 ) 08/22/2023 11:46 AM EDT Body Mass Index 27.15 08/22/2023 11:46 AM EDT Plan of Treatment Upcoming Encounters Date Type Department Care Team (Late st Contact Info) Description 07/15/2024 10:00 AM EDT Office Visit [facility] [address] [place] [address] Zamzam Vidal MD [address] [place] [address] Health Maintenance Due Date Last Done Comments CT Colonography 1950 FIT DNA/Cologuard 1950 FIT 1950 FOBT 1950 Lipid Panel 1950 Sigmoidoscopy 1950 Alcohol/Substance Use Screening 1961 Hepatitis C Screening 07/20/1967 Zoster Vaccines (1 of 2) 07/20/1999 Mammogram 05/22/2023 05/21/2022 Depression Screening 06/21/2023 06/20/2022, 06/21/19 23 RSV Patients and Patients Aged 60 years or older (1 - 1-dose 75+ series) 2024 SDOH Screening 08/11/2024 08/12/2023 Tobacco Screening 08/11/2024 08/12/2023 DTaP/Tdap/Td Vaccines (4 - Td or Tdap) 09/25/2026 09/25/2016, 09/15/2016, 01/31/2015 Colonoscopy 03/12/2029 03/12/2024, 10/07/2017 Colorectal Cancer Screening 03/12/2029 Hepatitis A Vaccines Aged Out 11/27/2013 No long er eligible based on patient's age to complete this topic Pneumococcal Vaccine: 50+ Years Completed 05/08/2016, 05/02/2015, 05/02/2015, Additional history exists COVID-19 Vaccine Completed 11/28/2023, , 06/10/2020, Additional history exists Influenza Vaccine Completed 11/28/2023, , 12/06/2021, Additional history exists HIB Vaccines Aged Out No longer eligi [...] patient's age to complete this topic Meningococcal Vaccine Aged Out No tab esme eligible based on patient's age to complete this topic RSV under 20 months Aged Out No longe r eligible based on patient's age to complete this topic Rotavirus Vaccines Aged Out No longer eligible based on patient's age to complete this topic Procedures Procedure Name Priority Date/Time Associated Diagnosis Comments HEMATOXYLIN AND EOSIN STAIN Routine 03/12/2024 11:44 AM EST COLONOSCOPY Routine 03/12/2024 MAMMOGRAPHY Routine 05/21/2022 from Last 3 Months or Most Recently Relevant to Health Maintenance Results * Hematoxylin and Eosin Stain (03/12/2024 11:44 AM EST) 03/12/2024 11:4 4 AM EST 03/12/2024 1:05 PM EST [facility] - 03/16/2024 3:00 PM EST ----- ------- Name: Sapna Payne ? Age/Sex: 73/F ? : 1950 Unit#: [id number] ?? Attend Dr: Malka Mack MD ?Re03/12/24 ?Status: DEP SDC ? Location: HO.SSS ?Disch: ? ----- ------- SPEC : [id number] ? RECD: 03/12/24 ? STATUS: ??SOUT ? REQ NUM: [id number] ? ITZ: 03/12/24-1143 ? SUBM DR: Malka Mack MD ? ENTERED: ??03/12/24 ?SP TYPE: Surgical ? OTHR DR: Zamzam Vidal MD ? ORDERED: ??HE Stain/14, Gross Micro L4/5, IHC, H. pylori ? Diagnosis ?? A. ??Duodenum, biopsy: ??Chronic/non-specific duodenitis with blunted villi and reactive ?? changes; no organisms identified. ? B. ??Stomach, random, biopsy: ??Gastric antral and body mucosa with ectatic vessels and ?? minimal chronic inactive gastritis; negative for H. pylori, intestinal metaplasia and ?? dysplasia. ? C. ??Colon, transverse, polyp: ??Tubular adenoma; negative for high-grade dysplasia and ?? carcinoma. ? D. ??Colon, nodule at 35 cm, biopsy: ??Colonic mucosa with focal prominent adipose tissue ?? suggesting submucosal lipoma (endoscopic correlation necessary). ? E. ??Colon, rectal polyp: ??Colonic mucosa with lymphoid aggregates and no specific change; ?? no adenomatous dysplasia seen. ?Clinical History Pre-Op Dx: ??Personal history of other infections and parasitic Post-Op Dx: Duodenitis, duodenal ulcer, hiatal hernia, gastritis, inlet patch, diverticulosis, polyps, nodules, hemorrhoids ?Microscopic Description Multiple microscopic sections reviewed. ??Immunostain for H.pylori on B is negative with appropriate control. ? Material Received ?? A. Duodenal bx ?? B. Random gastric bx ?? C. Transverse colon polyp ?? D. Nodule at 35 ?? E. Rectal polyp ? Gross Description Received in 5 parts. A. ??Received in formalin labeled ?duodenal biopsy? are 4 fragments of reynoso-white soft tissue measuring 0.2-0.3 cm in greatest dimension which are wrapped in lens paper and entirely submitted for microscopic examination, 4 pieces in cassette A. ? CONTINUED ON NEXT PAGE ----- ------- Name: Sapna Payne ? Age/Sex: 73/F ? : 1950 Unit#: [id number] ?? Attend Dr: Malka Mack MD ?Re03/12/24 ?Status: DEP SDC ? Location: HO.SSS ?Disch: ? ----- ------- SPEC : [id number] ? RECD: 03/12/24 ? STATUS: ??SOUT ? REQ NUM: [id number] ? ITZ: 03/12/24-1143 ? SUBM DR: Malka Mack MD ? ENTERED: ??03/12/24 ?SP TYPE: Surgical ? OTHR DR: Zamzam Vidal MD ? ORDERED: ??HE Stain/14, Gross Micro L4/5, IHC, H. pylori ? Gross Description ?(Continued) B. Received in formalin labeled ?random gastric biopsy? are 2 fragments of reynoso-white soft tissue measuring 0.2 and 0.3 cm in greatest dimension which are wrapped in lens paper and entirely submitted for microscopic examination, 2 pieces in cassette B. C. Received in formalin labeled ?transverse colon polyp? are 4 fragments of pink white soft tissue measuring 0.2-0.9 cm in greatest dimension which are wrapped in lens paper and entirely submitted for microscopic examination, 4 pieces in cassette C. D. Received in formalin labeled ?nodule at 35? are 3 fragments of pink-white and red-pink soft tissue measuring 0.3-0.6 cm in greatest dimension which are wrapped in lens paper and entirely submitted for microscopic examination, 3 pieces in cassette D. E. Received in formalin labeled ?rectal polyp? are 2 fragments of pink white soft tissue measuring 0.2 and 0.5 cm in greatest dimension which are wrapped in lens paper and entirely submitted for microscopic examination, 2 pieces in cassette E. smc Special studies ordered and performed: Immunostain for H. pylori on B1. Copies To: ?? Zamzam Vidal MD ?? [facility] ?? [address] [facility] ?? [place] [address] ?? [phone] ?? Malka Mack MD ?? [facility] ?? [address] ?? [place] [address] ?? [phone] ?? [email or web address] ----- ------- Signed (signature on file) Sonyaabundio Buckley 03/16/24 1500 ? ----- ------- ? END OF REPORT ? Generic External Data Provider LAB BLOOD ORDERAB LES Final Result Performing Organization Address [place] Co de Phone Number [facility] [address] [place] [address] [phone] * (ABNORMAL) Colonoscopy (03/12/2024) Colonoscopy Abnormal(A ) Normal [facility] Comment:TA Zamzam Vidal MD HEALTH MAINTENANCE Final Result Performing Organization Address [place] Co de Phone Number [facility] [address] [place] [address] [phone] * Mammography (05/21/2022) Mammogram BIRADS 1: Negative Anatomical Region Laterality Modality Other us Historical Provider HEALTH MAINTENANCE Final Result from Last 3 Months or Most Recently Relevant to Health Maintenance Insurance [facility] MEDICARE ADVANTAGE HMO Care Teams Plumber Cub Relationship Specialty Start Date End Date Zamzam Vidal MD [address] [place] [phone] PCP - General Family Medicine 03/11/18
--- OUTSIDE RECORDS SUMMARY | 2024-05-20 11:17 | XMS_ITS | Encounter Summary ---
Author Organization [facility] Address [address] [place] [address] 7t [place] [address] Care Team Providers Care Concession Cashier Name Role Phone Zamzam Vidal MD Primary Care Provider + Encounter Details Date Type Department Care Team (Late Contact Info) Description 08/28/2022 Abstract [facility] MEDICINE [address] [place] [address] [phone] Zamzam Vidal MD [address] [place] [address] [phone] Social History Tobacco Use Types Packs/Day Years Used Date Smoking Tobacco: Never Smokeless Tobacco: Never Alcohol Use Standard Drinks/Week Comments Yes 0 (1 standard drink = 0.6 oz [...] Encounters Date Type Department Care Team (Late Contact Info) Description 07/15/2024 10:00 AM EDT Office Visit [facility] [address] [place] [address] [phone] Zamzam Vidal MD [address] [place] [address] [phone] documented as of this encounter Procedures Procedure Name Priority Date/Time Associated Diagnosis Comments COLONOSCOPY Routine 10/07/2017 2:04 PM EDT documented in this encounter Results * Colonoscopy (10/07/2017 2:04 PM EDT) Colonoscopy Normal Normal Narrative Gisele Wagner - 10/07/2017 2:04 PM EDT Recommended 5 year follow up us Historical Provider [facility] Edited Result - Final documented in this encounter Visit Diagnoses Not on filedocumented in this encounter Care Teams Concession Cashier Relationship Specialty Start Date End Date Zamzam Vidal MD [address] [place] [phone] PCP - General Family Medicine 03/11/18 documented as of this encounter
--- OUTSIDE RECORDS SUMMARY | 2024-05-20 11:17 | XMS_ITS | Clinical Summary ---
Author Organization [facility] Address [address] [place] [address] Care Team Providers Care Real Estate Closer Name Role Phone Zamzam Vidal MD Primary Care Provider [phone] Allergies Active Allergy Reactions Criticality Noted Date Comments Diphenhydramine Other (See Comments) Low 10/09/2016 tachycardia Medications Medication Sig Dispensed Refills Start Date End Date Status Cyanocobalamin (VITAMIN B12 PO) Take 1 tablet by mouth daily. 0 Active vitamin E 400 UNIT capsule Take 1 capsule (400 Units total) by mouth daily. 0 Active MAGNESIUM PO Take 1 tablet by mouth daily. 0 Active acetaminophen (TYLENOL) 325 MG tablet Take 2 tablets (650 mg total) by mouth every 6 (six) hours as needed for pain. 90 tablet 0 10/20/2016 Active naproxen (NAPROSYN) 500 MG tablet Take 1 tablet (500 mg total) by mouth daily. 0 10/29/2016 Active cholecalciferol (VITAMIN D3) 1000 units tablet Take 1 tablet (1,000 Units total) by mouth daily. 0 Active gabapentin (NEURONTIN) 600 MG tablet Take 1 tablet (600 mg total) by mouth daily. 0 07/29/2017 Active SUPREP BOWEL PREP KIT 17.5-3.13-1.6 GM/180ML SOLN 0 09/03/2017 Active Active Problems Problem Noted Date Diagnosed Date Back pain with sciatica 11/20/2016 Scoliosis 11/20/2016 Overview: Degenerative Resolved Problems Problem Noted Date Diagnosed Date Resolved Date Narcotic dependence 11/20/2016 10/22/19 18 Family History Medical History Relation Name Comments Breast cancer Mother Cancer Mother Diabetes Mother Hypertension Mother Breast cancer Sister Cancer Sister Diabetes Sister Relation Name Status Comments Mother Sister Social History Tobacco Use Types Packs/Day Years Used Date Smoking Tobacco: Never Smokeless Tobacco: Never Tobacco Cessation:Counseling Given: Not Answered Alcohol Use Standard Drinks/Week Comments No 0 (1 standard drink = 0.6 oz pur e alcohol) Sex and Gender Information Value Date Recorded Sex Assigned at Female 03/29/2018 11:28 AM EST Gender Identity Female 03/29/2018 11:28 AM EST Sexual Orientation Not on file Job Start Date Occupation Industry Not on file Not on file Not on file Last Filed Vital Signs Vital Sign Reading Time Taken Comments Blood Pressure 139/73 10/07/2017 10:05 AM EDT Pulse 84 05/30/2020 2:02 PM EDT Temperature 36.4 ??C (97.5 ??F) 10/07/2017 9:46 AM ED T Respiratory Rate 16 10/07/2017 10:05 AM EDT Oxygen Saturation 100% 05/30/2020 2:02 PM EDT Inhaled Oxygen Concentration - - Weight 72.6 kg (160 lb) 11/05/2023 12:50 PM EDT Height 165.1 cm (5' 5 ) 11/05/2023 12:50 PM EDT Body Mass Index 26.63 11/05/2023 12:50 PM EDT Plan of Treatment Health Maintenance Due Date Last Done Comments Hepatitis C Screening 1950 COVID-19 Vaccine (#1) 01/19/1950 Depression Screening 1961 Preventative Health Evaluation 07/20/1967 Shingrix-Zoster Vaccine (1 of 2) 07/20/1999 Fall Risk Assessment 2014 Osteoporosis Screening (DEXA Scan) 04/29/2021 04/29/2019, 05/13/2015 Influenza Vaccine (#1) 2023 3, 12/06/2021, 11/08/2020, Additional history exists RSV Adult > 60+ Yrs or (1 - 1-dose 75+ series) 2024 Breast Cancer Screening (Mammogram) 05/28/2025 05/29/2023, 05/21/2022, 05/15/2021, Additional history exists DTap / Tdap / Td (3 - Td or Tdap) 09/25/2026 09/25/2016, 01/31/2015 Colon Cancer Screening (Colonoscopy) 10/08/2027 10/07/2017 Pneumococcal Vaccine Completed 05/08/2016, 05/02/2015, 05/02/2015, Additional history exists Hepatitis B Vaccines Aged Out No long er eligible based on patient's age to complete this topic RSV Ped < 20 months Aged Out No longe r eligible based on patient's age to complete this topic Medical Devices Implanted Type Area Subject Scientific Research Device Identifier Shelf Expiration Date Model / Serial / Lot Sponge Surgiflo 8ml Hemostatic Matrix Absorbable Latex Free - [id number] - [id number] Implanted:Qty: 1 on 10/17/2016 by Dom Lion MD at [facility] and Med Hemostatic Agent Posterio r: Spine Lumbar [employer] 07/08/2018 2991 / / [id number] Sponge Surgiflo 8ml Hemostatic Matrix Absorbable Latex Free - [id number] - [id number] Implanted:Qty: 1 on 10/17/2016 by Dom Lion MD at [facility] and Med Hemostatic Agent Posterio r: Spine Lumbar [employer] 01/08/2018 2991 / / [id number] Bone Graft Infuse 2.5x5cm 6 In Absorable Collagen Kit Lg - [id number] - [id number] Implanted:Qty: 1 on 10/17/2016 by Dom Lion MD at [facility] and Med Left: Spine Lumbar [employer] 04/11/2018 [id number] / / [id number] F Spacer Transcontinental M Spacer 6d 20mm X 60mm 11mm - [id number] - [id number] Implanted:Qty: 1 on 10/17/2016 by Dom Lion MD at [facility] and [facility] Left: Spine Lumbar [employer] 375.581 / / Sharp Screw Implanted:Qty: 1 on 10/17/2016 by Dom Lion MD at [facility] and Med Left: Spine Lumbar [employer] 176.730 / / Screw Sharp 35mm 5.5mm Self Drill Variable Angle Bone - [id number] - [id number] Implanted:Qty: 5 on 10/17/2016 by Dom Lion MD at [facility] and Med Left: Spine Lumbar [employer] 176.735 / / Spacer Transcontinental M Spacer 6d 20mm X 55mm 11mm - [id number] - [id number] Implanted:Qty: 2 on 10/17/2016 by Dom Lion MD at [facility] and Med Left: Spine Lumbar [employer] 375.481 / / Plate Bone Intercontinental 6 D L20 Mm X W11 Mm Spine Interv - [id number] - [id number] Implanted:Qty: 3 on 10/17/2016 by Dom Lion MD at [facility] and Med Left: Spine Lumbar [employer] 187.061 / / Advance Directives For more information, please contact: [phone] Documents on File Type Date Recorded Patient Passenger Conductor Expl anation Advance Directive and Living Will 04/28/2019 4:21 PM ; Latest Code Status on File Code Status Date Activated Date Inactivated Comments Full Code 10/17/2016 3:42 PM 10/21/2016 9:17 PM This code status was ascertained in the following way: discussion with patient . Care Teams Real Estate Closer Relationship Specialty Start Date End Date Zamzam Vidal MD PCP - General Family Medicine 03/09/15
--- OUTSIDE RECORDS SUMMARY | 2024-05-20 11:17 | XMS_ITS | Encounter Summary ---
Author Organization [employer] Address [address] [facility] 7t [place] [address] Care Team Providers Care Side Panel Padder Name Role Phone Zamzam Vidal MD Primary Care Provider + Reason for Visit * Reason Onset Date Comments order modify 04/05/2022 Encounter Details Date Type Department Care Team ([facility] st Contact Info) Description 04/05/[address] [facility] MEDICINE [address] [place], [place] [phone] Zamzam Vidal MD [address] [place] [address] order modify Social History Tobacco Use Types Packs/Day Years [...] suspected to have Coronavirus/COVID-19? No / Unsure 03/28/2022 9:20 AM EST documented as of this encounter Miscellaneous Notes * Telephone Encounter - Farzana Cazares - 04/05/2022 10:58 AM EST Neel Muñoz from [facility] requesting to modify order instead of CT Lumber Spine w/ and w/o Contrast should be CT Lumber Spine without . Any question please call phone # [phone]. documented in this encounter Plan of Treatment Upcoming Encounters Date Type Department Care Team (Late st Contact Info) Description 07/15/2024 10:00 AM EDT Office Visit [facility] MEDICINE [address] [place] [phone] Zamzam Vidal MD [address] [place] [address] Scheduled Orders Name Type Priority Associated Diagnoses Orde r Schedule CT Lumbar Spine w/o Contrast Imaging Routine Lumbar radiculopathy, chronic Gait disturbance Expected: 04/06/2022 (Approximate), Expires: 04/06/2023 documented as of this encounter Visit Diagnoses Diagnosis Lumbar radiculopathy, chronic- Primary Gait disturbance Abnormality of gait documented in this encounter Care Teams Side Panel Padder Relationship Specialty Start Date End Date Zamzam Vidal MD [address] [place] [phone] PCP - General Family Medicine 03/11/18 documented as of this encounter
--- OUTSIDE RECORDS SUMMARY | 2024-05-20 11:17 | XMS_ITS | Encounter Summary ---
Author Organization [employer] Address [address] [facility] 7t [place] [address] Care Team Providers Care Salt Manager Name Role Phone Zamzam Vidal MD Primary Care Provider + Reason for Visit * Reason Onset Date Comments Med Refill 02/27/2024 Encounter Details Date Type Department Care Team ([facility] st Contact Info) Description 02/27/2024 Refill [facility] MEDICINE [address] [place], [place] [phone] Zamzam Vidal MD [address] [place], [place] [phone] Social History Tobacco Use Types Packs/Day Years [...] 10:00 AM EDT Office Visit [facility] MEDICINE [address] [place], [place] [phone] Zamzam Vidal MD [address] [place] [address] documented as of this encounter Visit Diagnoses Not on filedocumented in this encounter Care Teams Salt Manager Relationship Specialty Start Date End Date Zamzam Vidal MD [address] [place] [address] [phone] PCP - General Family Medicine 03/11/18 documented as of this encounter
--- OUTSIDE RECORDS SUMMARY | 2024-05-20 11:17 | XMS_ITS | Clinical Summary ---
Author Organization [facility], Address [address] [place] [address] Phone Care Team Providers Care Finished Cloth Checker Name Role Phone Unavailable Primary Care Provider Unavailabl e Allergies Active Allergy Reactions Criticality Noted Date Comments Diphenhydramine High 08/13/2022 HEART PALPATATIONS Medications naproxen (NAPROSYN) 500 MG tablet naproxen Take No date recorded No form recorded No frequency recorded No route recorded No set duration recorded No set duration amount recorded active No dosage strength recorded No dosage strength units of measure recorded Active gabapentin (NEURONTIN) 600 MG tablet gabapentin Take No date recorded No form recorded No frequency recorded No route recorded No set duration recorded No set duration amount recorded active No dosage strength recorded No dosage strength units of measure recorded Active acetaminophen (TYLENOL) 325 MG tablet Take 650 mg by mouth every 6 (six) hours if needed for mild pain Active Active Problems Problem Noted Date Diagnosed Date Lumbago with sciatica 08/13/2022 Back pain 08/13/2022 Social History Tobacco Use Types Packs/Day Years Used Date Smoking Tobacco: Never Tobacco Cessation:Counseling Given: Not Answered Alcohol Use Standard Drinks/Week Comments Yes 1 (1 standard drink = 0.6 oz pur e alcohol) social Comments Unknown Sex and Gender Information Value Date Recorded Sex Assigned at Not on file Legal Sex Female 7:38 AM EDT Gender Identity Not on file Sexual Orientation Not on file Last Filed Vital Signs Vital Sign Reading Time Taken Comments Blood Pressure 153/86 09/18/2022 11:04 AM EDT Pulse 92 09/18/2022 11:04 AM EDT Temperature 36.4 ??C (97.6 ??F) 09/18/2022 11:04 AM E DT Respiratory Rate - - Oxygen Saturation 97% 09/18/2022 11:04 AM EDT Inhaled Oxygen Concentration - - Weight 74.8 kg (165 lb) 09/18/2022 11:04 AM EDT Height 165.1 cm (5' 5 ) 09/18/2022 11:04 AM EDT Body Mass Index 27.46 09/18/2022 11:04 AM EDT Plan of Treatment Health Maintenance Due Date Last Done Comments Breast Cancer Screening 1950 Colorectal Cancer Screening: Annual FOBT 1998 Colorectal Cancer Screening: Colonoscopy 1998 Colorectal Cancer Screening: Sigmoidoscopy 1998 Influenza Vaccine (#1) 2023 8, 11/26/2016, 05/08/2016, Additional history exists Pneumococcal Vaccine: 65+ Years Completed 05/08/2016, 05/02/2015, 05/02/2015, Additional history exists Hepatitis B Vaccine Aged Out No longe r eligible based on patient's age to complete this topic Insurance [facility] MEDICARE
[2024-05-21 16:09] LABS: Transglutaminase IgA <1.0 U/mL
[2024-05-21 21:08] LABS: Immunoglobulin A 203 mg/dL (70-320)
== END 2024-05-20 09:59 | disposition home or self-care (01) ==
LOC: HO.LAB 09:58
PROVIDERS: PCP Internal Medicine; Visit Provider Internal Medicine
DX: K26.9 Duodenal ulcer, unspecified as acute or chronic, without hemorrhage or perforation (principal)
CPT/HCPCS: 36415; 82784; 86364; 87338

== ENCOUNTER 2024-07-08 09:14 | Outpatient (REF) | payer MEDICARE, SELFPAY ==
--- OUTSIDE RECORDS SUMMARY | 2024-07-08 09:48 | XMS_ITS | Clinical Summary ---
Author Organization [facility], Address [address] [place] [address] Phone Care Team Providers Care Recreational Therapy Technician Name Role Phone Unavailable Primary Care Provider [...] Colorectal Cancer Screening: Sigmoidoscopy 1998 Influenza Vaccine (Season Ended) 2024 11/21/2017, 11/26/2016, 05/08/2016, Additional history exists Pneumococcal Vaccine: 50+ Years Completed 05/08/2016, 05/02/2015, 05/02/2015, Additional history exists Hepatitis B Vaccine Aged Out No longe r eligible based on patient's age to complete this topic Insurance [facility] Medicare
--- OUTSIDE RECORDS SUMMARY | 2024-07-08 09:48 | XMS_ITS | Encounter Summary ---
Author Organization [employer] Address [address] [facility] 7t [place] [address] Care Team Providers Care Speech Language Pathologist Name Role Phone Zamzam Vidal MD Primary Care Provider + Reason for Visit * Reason Comments Med Refill Encounter Details Date Type Department Care Team ([facility] st Contact Info) Description 04/08/2023 Refill [facility] MEDICINE [address] [place], [place] [phone] Zamzam Vidal MD [address] [place], [place] [phone] Heartburn Social History Tobacco Use Types Packs/Day [...] Description 07/15/2024 10:00 AM EDT Office Visit [facility] MEDICINE [address] [place] [address] Zamzam Vidal MD [address] [place] [address] documented as of this encounter Visit Diagnoses Diagnosis Heartburn documented in this encounter Care Teams Speech Language Pathologist Relationship Specialty Start Date End Date Zamzam Vidal MD [address] [place] [phone] PCP - General Family Medicine 03/11/18 documented as of this encounter
--- OUTSIDE RECORDS SUMMARY | 2024-07-08 09:48 | XMS_ITS | Encounter Summary ---
Author Organization [employer] Address [address] [place] [address] 7t [place] [address] Care Team Providers Care Tool And Die Machinist Name Role Phone Zamzam Vidal MD Primary Care Provider + Reason for Visit * Reason Onset Date Comments FYI 06/05/2022 Encounter Details Date Type Department Care Team ([facility] st Contact Info) Description 06/05/2022 Telephone [facility] MEDICINE [address] [place], [place] [phone] Zamzam Vidal MD [address] [place] [address] FYI Social History Tobacco Use Types Packs/Day [...] Tc from pt returning call per notes, fiction writer contacted pharmacy to confirmed, pharmacist stated theyre attempt to fill script and script has been covered. Advised will leave a message a FYI. * Telephone Encounter - Nakia Nazario - 06/05/2022 12:59 PM EDT Tc from pt stating that medication olmesartan (Benicar) 5 MG tablet Is not covered by her insurance. Please contact pt at [phone] documented in this encounter Plan of Treatment Upcoming Encounters Date Type Department Care Team (Late st Contact Info) Description 07/15/2024 10:00 AM EDT Office Visit [facility] MEDICINE [address] [place], [place] [phone] Zamzam Vidal MD [address] [place] [address] documented as of this encounter Visit Diagnoses Not on filedocumented in this encounter Care Teams Tool And Die Machinist Relationship Specialty Start Date End Date Zamzam Vidal MD [address] [place], [place] [phone] PCP - General Family Medicine 03/11/18 documented as of this encounter
--- OUTSIDE RECORDS SUMMARY | 2024-07-08 09:48 | XMS_ITS | Encounter Summary ---
Author Organization [employer] Address [address] [facility] 7t [place] [address] Care Team Providers Care Upper Stitcher Name Role Phone Zamzam Vidal MD Primary Care Provider + Reason for Visit * Reason Onset Date Comments Med Refill 02/27/2024 Encounter Details Date Type Department Care Team ([facility] st Contact Info) Description 02/27/2024 Refill [facility] MEDICINE [address] [place], [place] [phone] Zamzam Vidal MD [address] [place], [place] [phone] Social History Tobacco Use Types Packs/Day Years [...] Description 07/15/2024 10:00 AM EDT Office Visit [facility] MEDICINE [address] [place], [place] [phone] Zamzam Vidal MD [address] [place] [address] documented as of this encounter Visit Diagnoses Not on filedocumented in this encounter Care Teams Upper Stitcher Relationship Specialty Start Date End Date Zamzam Vidal MD [address] [place] [address] [phone] PCP - General Family Medicine 03/11/18 documented as of this encounter
--- OUTSIDE RECORDS SUMMARY | 2024-07-08 09:48 | XMS_ITS | Clinical Summary ---
Author Organization [facility] it Address [address] [place] [address] Care Team Providers Care Head Of Training And Development Name Role Phone Zamzam Vidal MD Primary Care Provider [phone] Surgical History Surgery Date Site/Laterality Comments OOPHORECTOMY PROCEDURE:OOPHORECTOMY HYSTERECTOMY PROCEDURE:HYSTERECTOMY BACK SURGERY PROCEDURE:BACK SURGERY CARPAL TUNNEL RELEASE Right PROCEDURE:CARPAL TUNNEL RELEASE SINUS SURGERY PROCEDURE:SINUS SURGERY COLONOSCOPY 10/07/2017 N/A PROCEDURE:COLONOSCOPY;COMMENT:Procedu re: COLONOSCOPY; Surgeon: Mat Delgado MD; Location: [facility]; Service: Gastroenterology; Laterality: N/A; LUMBAR FUSION 10/17/2016 Left PROCEDURE:LUMBAR FUSION;COMMENT:Procedure: L2-3, L3-4 AND L4-5 FUSION SPINE LUMBAR - DLIF; Surgeon: Dom Lion MD; Location: [facility] MAIN OPERATING ROOM; Service: Spine; Laterality: Left; LUMBAR LAMINECTOMY 10/17/2016 Posterior PROCEDURE:LUMBAR LAMINECTOMY;COMMENT:Procedure: L2, L3, L4, L5 LUMBAR DECOMPRESSION POSTERIOR; Surgeon: Dom Lion MD; Location: [facility] MAIN OPERATING RO[facility]; Service: Spine; Laterality: Posterior; Medical History Medical History Date Comments PONV (postoperative nausea and vomiting) DX:PONV (postoperative nausea and vomiting) Rheumatoid arthritis (CMS/HC C V24, CMS/HCC V28) DX:Rheumatoid arthritis (HCC ) Peripheral neuropathy DX:Periphe ral neuropathy Colon polyp [...] Screening 02/06/2022 COVID-19 Vaccine ( season) 2023 RSV Immunization Adult Patients (1 - 1-dose 75+ series) 2024 Influenza Vaccine (Season Ended) 2024 Breast Cancer Screening 05/28/2025 05/29/19 24, [...] age to complete this topic Meningococcal B Vaccine Aged Out No l onger eligible based on patient's age to complete [...] on 05/29/2023 10:08 AM. Workstation Name - [id number] Procedure Note Skylar Moncada MD - 10/28/2023 [...] MD on 05/29/2023 10:08AM. Workstation Name - [id number] Zamzam Vidal MD IMG BI PROCEDURES Final Resu lt * BONE DENSITY STUDY (04/29/2019 9:29 AM EST) Anatomical Region Laterality Modality Bone Densitometr y 02/11/2019 9:54 AM EST Narrative 04/30/2019 8:29 AM EST EXAM PERFORMED: Bone density study DEXA EXAM HISTORY: Postmenopausal screening. TECHNIQUE: [email or web address] system utilized for DEXA images Findings: LUMBAR [...] on 04/30/2019 8:29 AM. Workstation Name - [id number] Procedure Note Makeda Ortiz MD - 03/04/2022 EXAM PERFORMED: Bone density study DEXA EXAM HISTORY: Postmenopausal screening. TECHNIQUE: [email or web address] system utilized for DEXA images Findings: LUMBAR [...] : Dr. Makeda Ortiz MD on 04/30/2019 8:29AM. Workstation Name - [id number] Zamzam Vidal MD IMG DXA PROCEDURES Final Res ult from Last 3 Months or Most Recently Relevant to Health Maintenance Care Teams Head Of Training And Development Relationship Specialty Start Date End Date Zamzam Vidal MD [address] [place] [phone] PCP - General Family Medicine 03/09/15
--- OUTSIDE RECORDS SUMMARY | 2024-07-08 09:48 | XMS_ITS | Encounter Summary ---
Author Organization [employer] Address [address] [facility] 7t [place] [address] Care Team Providers Care Public Finance Specialist Name Role Phone Zamzam Vidal MD Primary Care Provider + Reason for Visit * Reason Onset Date Comments Med Refill 03/29/2023 Encounter Details Date Type Department Care Team ([facility] st Contact Info) Description 03/29/2023 Telephone [facility] MEDICINE [address] [place], [place] [phone] Zamzam Vidal MD [address] [place], [place] [phone] Med Refill Social History Tobacco Use Types [...] MG EC tablet To be sent to: [id number] - [address] AT [facility] documented in this encounter Plan of Treatment Upcoming Encounters Date Type Department Care Team (Late st Contact Info) Description 07/15/2024 10:00 AM EDT Office Visit [facility] MEDICINE [address] [place] [address] Zamzam Vidal MD [address] [place], [place] [phone] documented as of this encounter Visit Diagnoses Not on filedocumented in this encounter Care Teams Public Finance Specialist Relationship Specialty Start Date End Date Zamzam Vidal MD [address] [place], [place] [phone] PCP - General Family Medicine 03/11/18 documented as of this encounter
--- OUTSIDE RECORDS SUMMARY | 2024-07-08 09:48 | XMS_ITS | Clinical Summary ---
Author Organization [facility] Address [address] [place] [address] Care Team Providers Care Dishwasher Busser Name Role Phone Zamzam Vidal MD Primary Care Provider [phone] Allergies Active Allergy Reactions Criticality Noted Date [...] this topic Medical Devices Implanted Type Area Towel Rolling Machine Operator Device Identifier Shelf Expiration Date Model / Serial / Lot Sponge Surgiflo 8ml Hemostatic Matrix Absorbable Latex Free - [id number] - [id number] Implanted:Qty: 1 on 10/17/2016 by Dom [place] [facility] [place] Hemostatic Agent Posterio r: Spine Lumbar [employer] 07/08/2018 2991 / / [id number] Sponge Surgiflo 8ml Hemostatic Matrix Absorbable Latex Free - [id number] - [id number] Implanted:Qty: 1 on 10/17/2016 by Dom Lion [place] [facility] Hemostatic Agent Posterio r: Spine Lumbar [employer] 01/08/2018 2991 / / [id number] Bone Graft Infuse 2.5x5cm 6 In Absorable Collagen Kit Lg - [id number] - [id number] Implanted:Qty: 1 on 10/17/2016 by Dom Lion [place] [facility] Left: Spine Lumbar [employer] 04/11/2018 [id number] / / [id number] F Spacer Transcontinental M Spacer 6d 20mm X 60mm 11mm - [id number] - [id number] Implanted:Qty: 1 on 10/17/2016 by Dom Lion [place] [facility] Left: Spine Lumbar [employer] 375.581 / / [place] Screw Implanted:Qty: 1 on 10/17/2016 by Dom Lion MD [place] [facility] Left: Spine Lumbar [employer] 176.730 / / Screw [place] 35mm 5.5mm Self Drill Variable Angle Bone - [id number] - [id number] Implanted:Qty: 5 on 10/17/2016 by Dom Lion [place] [facility] Left: Spine Lumbar [employer] 176.735 / / Spacer Transcontinental M Spacer 6d 20mm X 55mm 11mm - [id number] - [id number] Implanted:Qty: 2 on 10/17/2016 by Dom Lion MD at [facility] Left: Spine Lumbar [employer] 375.481 / / Plate Bone Intercontinental 6 D L20 Mm X W11 Mm Spine Interv - [id number] - [id number] Implanted:Qty: 3 on 10/17/2016 by Dom Lion [place] [facility] [place] Left: Spine Lumbar [employer] 187.061 / / Advance Directives For more information, please contact: [phone] Documents on File Type Date Recorded Patient Building And Grounds Supervisor Expl anation Advance Directive and Living Will 04/28/2019 4:21 PM ; Latest Code Status on File Code Status Date Activated Date Inactivated Comments Full Code 10/17/2016 3:42 PM 10/21/2016 9:17 PM This code status was ascertained in the following way: discussion with patient . Care Teams Dishwasher Busser Relationship Specialty Start Date End Date Zamzam Vidal MD PCP - General Family Medicine 03/09/15
--- OUTSIDE RECORDS SUMMARY | 2024-07-08 09:48 | XMS_ITS | Clinical Summary ---
Author Organization [employer] Address 75 [facility] 7t [place] [address] Care Team Providers Care Internal Grinder Set Up Operator Name Role Phone Zamzam Vidal MD [...] Type Department Care Team Description 05/06/2024 Telephone [facility] [address] [place] [address] Zamzam Vidal MD Referral 04/29/2024 Telephone [facility] [address] [place], [place] [phone] Zamzam Vidal MD Imaging Order from Last 3 Months Immunizations Name Administration [...] Description 07/15/2024 10:00 AM EDT Office Visit [facility] [address] [place] [address] Zamzam Vidal MD [address] [place] [address] Health Maintenance Due Date Last Done Comments [...] Procedure Name Priority Date/Time Associated Diagnosis Comments HELICOBACTER PYLORI AG, EIA, STOOL Routine 05/20/2024 10:20 AM EDT IMMUNOGLOBULIN A Routine 05/20/2024 10:1 7 AM EDT TISSUE TRANSGLUTAMINASE AB, IGA Routine 05/20/2024 10:17 AM EDT COLONOSCOPY Routine 03/12/2024 MAMMOGRAPHY Routine 05/21/2022 from Last 3 Months or Most Recently Relevant to Health Maintenance Results * Helicobacter pylori??Antigen, EIA, Stool (05/20/2024 10:20 AM EDT) H pylori Ag Stool SEE NOTE [facility] Comment:HELICOBACTER PYLORI AG, EIA, STOOL Micro Number: [id number] Test Status: Final Specimen Source: Stool Specimen Quality: Adequate H.pylori Ag: Not Detected Antimicrobials, proton pump inhibitors, and bismuth preparations inhibit H. pylori and ingestion up to two weeks prior to testing may cause false negative results. If clinically indicated the test should be repeated on a new specimen obtained two weeks after discontinuing treatment. Reference Range: Not DetectedTHIS TEST WAS PERFORMED AT:[employer] [place] [phone] MCCOY MD 05/20/2024 10:2 0 AM EDT 05/20/2024 11:42 AM EDT us Generic External Data Provider LAB BODY FLUIDS A ND STOOLS ORDERABLES Final Result Performing Organization Address [facility] de Phone Number [facility] [address] [place] [phone] * Tissue Transglutaminase Antibody, IgA (05/20/2024 10:17 AM EDT) [facility] Transglutaminase IgA <1.0 U/mL [facility] Comment:Value Interpretation ----- <15.0 Antibody not detected> or = 15.0 Antibody detectedTHIS TEST WAS PERFORMED AT:[employer] [address] [phone] MCCOY MD 05/20/2024 10:1 7 AM EDT 05/20/2024 10:17 AM EDT Generic External Data Provider LAB BLOOD ORDERAB LES Final Result Performing Organization Address [facility] de Phone Number [facility] [address] [place] [phone] * Immunoglobulin A (05/20/2024 10:17 AM EDT) [facility] Immunoglobulin A 203 70 - 320 mg/dL [facility] Comment:THIS TEST WAS PERFOR MED AT:[employer] [address] [phone] MCCOY MD 05/20/2024 10:1 7 AM EDT 05/20/2024 10:17 AM EDT Generic External Data Provider LAB BLOOD ORDERAB LES Final Result Performing Organization Address [facility] de Phone Number [facility] [address] [place] [phone] * (ABNORMAL) Hm Colonoscopy (03/12/2024) [facility] Colonoscopy Abnormal(A ) Normal [facility] Comment:TA us Zamzam Vidal MD HEALTH MAINTENANCE Final Result [facility] [address] [place] [phone] * Mammography (05/21/2022) Mammogram BIRADS 1: Negative Anatomical Region Laterality Modality Other us Historical Provider HEALTH MAINTENANCE Final Result from Last 3 Months or Most Recently Relevant to Health Maintenance Insurance [facility] [place] [address] Care Teams Internal Grinder Set Up Operator Relationship Specialty Start Date End Date Zamzam Vidal MD [address] [place] [phone] PCP - General Family Medicine 03/11/18
--- OUTSIDE RECORDS SUMMARY | 2024-07-08 09:48 | XMS_ITS | Encounter Summary ---
Author Organization [employer] Address [address] [facility] 7t [place] [address] Care Team Providers Care Law Researcher Name Role Phone Zamzam Vidal MD Primary Care Provider + Reason for Visit * Reason Onset Date Comments Appointment Request 07/24/2022 Encounter Details Date Type Department Care Team ([facility] st Contact Info) Description 07/24/2022 Telephone [facility] MED[facility]INE [address] [place], [place] [phone] Zamzam Vidal MD [address] [place] [address] Appointment Request Social History Tobacco Use Types [...] 10:00 AM EDT Office Visit [facility] [address] [place], [place] [phone] Zamzam Vidal MD [address] [place], [place] [phone] documented as of this encounter Visit Diagnoses Not on filedocumented in this encounter Care Teams Law Researcher Relationship Specialty Start Date End Date Zamzam Vidal MD [address] [place] [address] [phone] PCP - General Family Medicine 03/11/18 documented as of this encounter
--- OUTSIDE RECORDS SUMMARY | 2024-07-08 09:48 | XMS_ITS | Encounter Summary ---
Author Organization [facility] Address [address] [place] [address] 7t [place] [address] Care Team Providers Care Assembly Press Operator Name Role Phone Zamzam Vidal MD Primary Care Provider + Reason for Visit * Reason Comments Med Refill Encounter Details Date Type Department Care Team (Late Contact Info) Description 07/04/2022 Refill [facility] MED[facility]INE [address] [place], [place] [phone] Zamzam Vidal MD [address] [place], [place] [phone] Social History Tobacco Use Types Packs/Day Years [...] Upcoming Encounters Date Type Department Care Team ([facility] Contact Info) Description 07/15/2024 10:00 AM EDT Office Visit [facility] [address] [place] [address] Zamzam Vidal MD [address] [place] [address] documented as of this encounter Visit Diagnoses Not on filedocumented in this encounter Care Teams Assembly Press Operator Relationship Specialty Start Date End Date Zamzam Vidal MD [address] [place] [address] PCP - General Family Medicine 03/11/18 documented as of this encounter
--- OUTSIDE RECORDS SUMMARY | 2024-07-08 09:48 | XMS_ITS | Encounter Summary ---
Author Organization [employer] Address 75 [facility] 7t [place] [address] Care Team Providers Care Music Theory Teacher Name Role Phone Zamzam Vidal MD Primary Care Provider + Reason for Visit * Reason Comments Med Refill Encounter Details Date Type Department Care Team ([facility] st Contact Info) Description 05/31/2023 Refill [facility] MED[facility]INE [address] [place], [place] [phone] Zamzam Vidal MD [address] [place], [place] [phone] Bacterial infection due to H. pylori Social [...] [facility] [address] [place] [address] [phone] Zamzam Vidal MD [address] [place] [phone] documented as of this encounter Visit Diagnoses Diagnosis Bacterial infection due to H. pylori Helicobacter pylori (H. pylori) documented in this encounter Care Teams Music Theory Teacher Relationship Specialty Start Date End Date Zamzam Vidal MD [address] [place] [address] [phone] PCP - General Family Medicine 03/11/18 documented as of this encounter
--- OUTSIDE RECORDS SUMMARY | 2024-07-08 09:48 | XMS_ITS | Encounter Summary ---
Author Organization [employer] Address 75 [facility] 7t [place] [address] Care Team Providers Care Head Of Talent Management Name Role Phone Zamzam Vidal MD Primary Care Provider + Reason for Visit * Reason Onset Date Comments Referral 03/21/2023 Encounter Details Date Type Department Care Team ([facility] st Contact Info) Description 03/21/2023 Telephone [facility] [address] [place], [place] [phone] Zamzam Vidal MD [address] [place] [address] Referral Social History Tobacco Use Types Packs/Day [...] t he electric, gas, oil or water [employer] threatened to shut off services in your [...] 1:30 PM EST Tc from pt states [facility] has not received referral. Please re fax to [phone] * Telephone Encounter - Zamzam Vidal MD - 03/28/2023 3:53 PM EST Please refer to [facility] * Telephone Encounter - Brionna Aguilar RN - 03/21/2023 3:52 PM EST Noted pt.'s last colonoscopy was September [address] [facility] in [place], due for 5 year repeat in September 2022. TC placed to pt., pt. Reports she called this facility to attempt to book however they reported that provider no longer worked there therefore she would like to go to [facility]. Advised pt GI referral request would be sent to PCP for overdue colonoscopy. * Telephone Encounter - Lisa Leyva - 03/21/2023 3:16 PM EST Tc from pt requesting a referral to [facility] for colonoscopy. Please contact pt at [phone] documented in this encounter Plan of Treatment Upcoming Encounters Date Type Department Care Team (Late st Contact Info) Description 07/15/2024 10:00 AM EDT Office Visit [facility] [address] [place] [address] Zamzam Vidal MD [address] [place] [address] documented as of this encounter Visit Diagnoses Diagnosis Tubular adenoma of colon- Primary Benign neoplasm of colon documented in this encounter Care Teams Head Of Talent Management Relationship Specialty Start Date End Date Zamzam Vidal MD [address] [place] [phone] PCP - General Family Medicine 03/11/18 documented as of this encounter
--- OUTSIDE RECORDS SUMMARY | 2024-07-08 09:48 | XMS_ITS | Encounter Summary ---
Author Organization [facility] Address [address] [place] [address] 7t [place] [address] Care Team Providers Care Nurse Transitional Name Role Phone Zamzam Vidal MD Primary Care Provider + Encounter Details Date Type Department Care Team (Late Contact Info) Description 08/28/2022 Abstract [facility] [address] [place] [address] [phone] Zamzam Vidal MD [address] [place] [address] [phone] Social History Tobacco Use Types Packs/Day Years [...] Description 07/15/2024 10:00 AM EDT Office Visit [facility] [address] [place] [address] [phone] Zamzam Vidal MD [address] [place] [address] [phone] documented as of this encounter Procedures Procedure Name Priority Date/Time Associated Diagnosis Comments COLONOSCOPY Routine 10/07/2017 2:04 PM EDT documented in this encounter Results * Colonoscopy (10/07/2017 2:04 PM EDT) Colonoscopy Normal Normal Narrative Gisele Wagner - 10/07/2017 2:04 PM EDT Recommended 5 year follow up us Historical Provider [facility] Edited Result - Final documented in this encounter Visit Diagnoses Not on filedocumented in this encounter Care Teams Nurse Transitional Relationship Specialty Start Date End Date Zamzam Vidal MD [address] [place] [phone] PCP - General Family Medicine 03/11/18 documented as of this encounter
--- OUTSIDE RECORDS SUMMARY | 2024-07-08 09:48 | XMS_ITS | Encounter Summary ---
Author Organization [employer] Address 75 [facility] 7t [place] [address] Care Team Providers Care Student Ministry Pastor Name Role Phone Zamzam Vidal MD Primary Care Provider + Reason for Visit * Reason Onset Date Comments order modify 04/05/2022 Encounter Details Date Type Department Care Team ([facility] st Contact Info) Description 04/05/2022 Telephone [facility] [address] [place], [place] [phone] Zamzam Vidal MD [address] [place] [address] order modify Social History Tobacco Use Types [...] . Any question please call phone # [phone]. documented in this encounter Plan of Treatment Upcoming Encounters Date Type Department Care Team (Late st Contact Info) Description 07/15/2024 10:00 AM EDT Office Visit [facility] [address] [place] [phone] Zamzam Vidal MD [address] [place] [phone] Scheduled Orders Name Type Priority Associated Diagnoses Orde r Schedule CT Lumbar Spine w/o Contrast Imaging Routine Lumbar radiculopathy, chronic Gait disturbance Expected: 04/06/2022 (Approximate), Expires: 04/06/2023 documented as of this encounter Visit Diagnoses Diagnosis Lumbar radiculopathy, chronic- Primary Gait disturbance Abnormality of gait documented in this encounter Care Teams Student Ministry Pastor Relationship Specialty Start Date End Date Zamzam Vidal MD [address] [place] [phone] PCP - General Family Medicine 03/11/18 documented as of this encounter
--- OUTSIDE RECORDS SUMMARY | 2024-07-08 09:48 | XMS_ITS | Encounter Summary ---
Author Organization [employer] Address 75 [facility] 7t [place] [address] Care Team Providers Care Freelance Writer Name Role Phone Zamzam Vidal MD Primary Care Provider + Reason for Visit * Reason Comments Med Refill Encounter Details Date Type Department Care Team ([facility] Contact Info) Description 08/22/2023 Refill [facility] MEDICINE [address] [place], [place] [phone] Zamzam Vidal MD [address] [place], [place] [phone] Social History Tobacco Use Types Packs/Day Years [...] Description 07/15/2024 10:00 AM EDT Office Visit [facility] MEDICINE [address] [place], [place] [phone] Zamzam Vidal MD [address] [place] [phone] documented as of this encounter Visit Diagnoses Not on filedocumented in this encounter Care Teams Freelance Writer Relationship Specialty Start Date End Date Zamzam Vidal MD [address] [place] [phone] PCP - General Family Medicine 03/11/18 documented as of this encounter
--- OUTSIDE RECORDS SUMMARY | 2024-07-08 09:48 | XMS_ITS | Encounter Summary ---
Author Organization [facility] Address [address] [facility] 7t [place] [address] Care Team Providers Care Mortuary Beautician Name Role Phone Zamzam Vidal MD Primary Care Provider + Encounter Details Date Type Department Care Team (Late st Contact Info) Description 05/23/2022 Orders Only [facility]INE [address] [place] [address] [phone] Indiana Garcia MD [address] [place] [address] [phone] Neuroforaminal stenosis of lumbar spine (Primary Dx) [...] Description 07/15/2024 10:00 AM EDT Office Visit [facility] [address] [place] [address] [phone] Zamzam Vidal MD [address] [place] [address] [phone] documented as of this encounter Visit Diagnoses Diagnosis Neuroforaminal stenosis of lumbar spine- Primary documented in this encounter Care Teams Mortuary Beautician Relationship Specialty Start Date End Date Zamzam Vidal MD [address] [place] [phone] PCP - General Family Medicine 03/11/18 documented as of this encounter
--- OUTSIDE RECORDS SUMMARY | 2024-07-08 09:49 | XMS_ITS | Encounter Summary ---
Author Organization [employer] Address [address] [place] [address] 7t [place] [address] Care Team Providers Care Flash Ranging Crewmember Name Role Phone Zamzam Vidal MD Primary Care Provider + Reason for Visit * Reason Onset Date Comments Referral 11/16/2022 Encounter Details Date Type Department Care Team ([facility] st Contact Info) Description 11/16/2022 Telephone [facility] [address] [place], [place] [phone] Zamzam Vidal MD [address] [place] [address] Referral Social History Tobacco Use Types Packs/Day [...] message below. Referral has the incorrect facility ([facility] Pt is requesting [facility]. * Telephone Encounter - Brionna Aguilar RN - 11/16/2022 12:33 PM EDT Please see message below regarding PT referral places yesterday, thanks! * Telephone Encounter - Farzana Cazares - 11/16/2022 11:21 AM EDT Tc from pt requesting for physical therapy referral to be faxed to Specialty:[facility] Location:[address] [place] [address] [address], [place] [address] Date&Time: n/a Roofer Helper Vinyl Coating: N/a Pt also informs she spoke with someone in the [facility] office and was inform she may need a PA . Please call to clarify . documented in this encounter Plan of Treatment Upcoming Encounters Date Type Department Care Team (Late st Contact Info) Description 07/15/2024 10:00 AM EDT Office Visit [facility] MED[facility]INE [address] [place] [phone] Zamzam Vidal MD [address] [place] [phone] documented as of this encounter Visit Diagnoses Not on filedocumented in this encounter Care Teams Flash Ranging Crewmember Relationship Specialty Start Date End Date Zamzam Vidal MD [address] [place] [phone] PCP - General Family Medicine 03/11/18 documented as of this encounter
== END 2024-07-08 09:15 | disposition home or self-care (01) ==
LOC: HO.MAMMO 09:14
PROVIDERS: PCP Internal Medicine; Visit Provider Internal Medicine
DX: Z12.31 Encounter for screening mammogram for malignant neoplasm of breast (principal)
CPT/HCPCS: 77063; 77067

== ENCOUNTER → 2024-07-08 09:45 | Outpatient (BNV) | payer MEDICARE, SELFPAY | PROVIDERS: PCP Internal Medicine; Visit Provider Internal Medicine | DX: Z12.31 Encounter for screening mammogram for malignant neoplasm of breast (principal) | CPT/HCPCS: 77063; 77067 ==

== ENCOUNTER 2024-08-14 10:19 | Outpatient (REF) | payer MEDICARE, SELFPAY ==
--- NOTE | ~2024-08-14 | US_ITS ---
EXAMINATION: US RETROPERITONEUM HISTORY: hematuria, incontinence TECHNIQUE: Real-time grayscale ultrasound imaging of the kidneys was performed and images were reviewed. COMPARISON: There are no prior studies available for comparison. FINDINGS: Right kidney: The right kidney measures 10.8 x 3.5 x 5.2 cm. Renal parenchymal echotexture and thickness are normal. There are no masses. There is no hydronephrosis or renal calculi. Left Kidney: The left kidney measures 9.8 x 5.5 x 5.2 cm. Renal parenchymal echotexture and thickness are normal. There are no masses. There is no hydronephrosis or renal calculi. The urinary bladder is unremarkable. Bilateral ureteral jets are identified. Before voiding, the urinary bladder measured 10.7 x 8.3 x 11.3 cm, for an estimated volume of 525 mL. After voiding, the urinary bladder measured 4.3 x 2.7 x 4.5 cm, for an estimated volume of 27 mL. US/US retroperitoneal comp IMPRESSION: Unremarkable retroperitoneal ultrasound. Post void bladder residual of 27 mL. Electronically signed by: Bret Gaytan MD 08/14/2024 01:05 PM EDT
--- OUTSIDE RECORDS SUMMARY | 2024-08-14 11:04 | XMS_ITS | Encounter Summary ---
Author Organization [employer] Address 75 [facility] 7t [place] [address] Care Team Providers Care Touch Up Worker Name Role Phone Zamzam Vidal MD Primary Care Provider + Reason for Visit * Reason Comments Med Refill Encounter Details Date Type Department Care Team ([facility] Contact Info) Description 04/08/2023 Refill [facility] MEDICINE 230 [place], [place] [phone] Zamzam Vidal MD 230 [place], [place] [phone] Heartburn Social History Tobacco Use Types Packs/Day [...] t he electric, gas, oil or water [employer] threatened to shut off services in your [...] as of this encounter Plan of Treatment Not on file documented as of this encounter Visit Diagnoses Diagnosis Heartburn documented in this encounter Care Teams Touch Up Worker Relationship Specialty Start Date End Date Zamzam Vidal MD [address] [place] [phone] PCP - General Family Medicine 03/11/18 documented as of this encounter
[2024-08-14 12:45] LABS: Anion Gap 13 (12-20); Blood Urea Nitrogen 13 mg/dL (9-16); Carbon Dioxide 28 mmol/L (22-29); Chloride 106 mmol/L (96-108); Cholesterol 239 mg/dL (<200); Estimated Glomerular Filt Rate > 60; Glucose Random 79 mg/dL (60-115); HDL Cholesterol 75 mg/dL (>40); LDL Cholesterol Calculated 145 mg/dL (<100); Potassium 4.2 mmol/L (3.3-5.1); Sodium 143 mmol/L (135-145); Triglycerides 95 mg/dL (<150)
[2024-08-14 13:00] LABS: TSH reflex Free T4 2.48 uIU/mL (0.32-4.0); Vitamin D 25-OH Total 68.2 ng/mL (>30)
[2024-08-14 13:17] LABS: Vitamin B12 379 pg/mL (200-900)
[2024-08-14 15:17] LABS: Reflex LDLD? No
== END 2024-08-14 10:20 | disposition home or self-care (01) ==
LOC: HO.US 10:19
PROVIDERS: PCP Internal Medicine; Visit Provider Internal Medicine
DX: I10 Essential (primary) hypertension (principal); N39.45 Continuous leakage; R31.9 Hematuria, unspecified; G57.93 Unspecified mononeuropathy of bilateral lower limbs
CPT/HCPCS: 36415; 76770; 80048; 80061; 82306; 82607; 84443

== ENCOUNTER → 2024-08-14 12:33 | Outpatient (BNV) | payer MEDICARE, SELFPAY | PROVIDERS: PCP Internal Medicine; Visit Provider Radiology Diagnostic Radiology | DX: R31.9 Hematuria, unspecified (principal) | CPT/HCPCS: 76770 ==

== ENCOUNTER 2024-09-01 09:51 | Outpatient (REF) | payer MEDICARE, SELFPAY ==
--- OUTSIDE RECORDS SUMMARY | 2024-09-01 10:49 | XMS_ITS | Encounter Summary ---
Author Organization [employer] Address 75 [facility] [address] [place] [address] Care Team Providers Care Commercial Horticulture Instructor Name Role Phone Zamzam Vidal MD Primary Care Provider + Reason for Visit * Reason Comments Med Refill Encounter Details Date Type Department Care Team ([facility] Contact Info) Description 04/08/2023 Refill [facility] MEDICINE [address] [place], [place] [phone] Zamzam Vidal MD [address] [place], [place] [phone] Heartburn Social History Tobacco Use Types Packs/Day [...] t he electric, gas, oil or water [employer] threatened to shut off services in your [...] Heartburn documented in this encounter Care Teams Commercial Horticulture Instructor Relationship Specialty Start Date End Date Zamzam Vidal MD [address] [place] [phone] PCP - General Family Medicine 03/11/18 documented as of this encounter
[2024-09-01 11:53] LABS: Appearance Urine Clear; Color Urine Yellow; Glucose Urine UA Negative (Negative); Leukocyte Esterase Urine Moderate (2+) (Negative); Nitrite Urine Negative (Negative); PH 6.5 (5.0-9.0); Specific Gravity - Urine 1.025 (1.005-1.025); UMIC TRIGGER UACC YES; Urine Blood Negative (Negative); Urine Ketones Negative (Negative); Urine Protein Negative (Neg-Trace)
[2024-09-01 12:03] LABS: Bacteria Urine None Seen (None Seen); Hyaline Casts Urine 0-2 /LPF (0-2); RBC Urine 0-2 /HPF (0-2); Squamous Epithelial Cell Urine 0-2 /HPF (0-2); UACC Culture Trigger YES; WBC Urine 0-5 /HPF (0-5)
== END 2024-09-01 09:52 | disposition home or self-care (01) ==
LOC: HO.HHCL 09:51
PROVIDERS: PCP Internal Medicine; Visit Provider Internal Medicine
DX: R31.29 Other microscopic hematuria (principal)
CPT/HCPCS: 81001; 87086

== ENCOUNTER 2025-01-27 16:30 | Outpatient (REF) | payer MEDICARE, SELFPAY ==
--- OUTSIDE RECORDS SUMMARY | 2025-01-27 11:15 | XMS_ITS | Encounter Summary ---
Author Organization [employer] Address [address] [facility] [address] 7[address] [place] [address] Care Team Providers Care Manual Lathe Operator Name Role Phone Zamzam Vidal MD Primary Care Provider + Encounter Details Date Type Department Care Team (Latest Contact Info) Description 01/27/2025 11:15 AM EST Procedure Visit [facility] [address] [place], [place] [phone] Zamzam Vidal MD [address] [place], [place] [phone] Subacute vaginitis (Primary Dx); Abnormal female pelvic exam Social History Tobacco Use Types Packs/Day Years Used Date Smoking Tobacco: Never Smokeless Tobacco: Never Alcohol Use Standard Drinks/Week Comments Not Currently 0 (1 standard drink = 0.6 oz pur e alcohol) social Alcohol Answer Date Recorded How often do you have a drink containing alcohol ? 2 11/24/2024 Average Number of Drinks Not on file 025 Frequency of Binge Drinking Not on file 11/09 Housing Stability Answer Date Recorded What is [...] Date Recorded Patient Health Questionnaire-2 Score 0 07/15/2024 Internet Access Answer Date Recorded Internet Access Q1 Yes 07/08/2024 Internet Access Q2 Not on file 07/08/2024 Comments Unknown Sex and Gender Information Value Date Recorded Sex Assigned at Female 01/08/2022 10:31 AM EDT Legal Sex Female 10:31 AM EDT Gender Identity Female 01/08/2022 10:31 AM EDT Sexual Orientation Choose not to disclose 2021 10:31 AM EDT documented as of this encounter Last Filed Vital Signs Vital Sign Reading Time Taken Comments Blood Pressure 146/66 01/27/2025 12:06 PM EST Pulse 68 01/27/2025 12:06 PM EST Temperature 36.2 C (97.1 F) 01/27/2025 12:06 PM EST Respiratory Rate 14 01/27/2025 12:06 PM EST Oxygen Saturation - - Inhaled Oxygen Concentration - - Weight 76.7 kg (169 lb) 01/27/2025 12:06 PM EST Height 165.1 cm (5' 5 ) 01/27/2025 12:06 PM EST Body Mass Index 28.12 01/27/2025 12:06 PM EST documented in this encounter Plan of Treatment Scheduled Orders Name Type Priority Associated Diagnoses Order Schedule Pap Smear Pathology and Cytology Routine Subacute vaginitis Abnormal female pelvic exam Ordered: 01/27/2025 Bacterial Vaginosis Microbiology Routine Subacute vaginitis Abnormal female pelvic exam Expected: 01/27/2025 (Approximate), Expires: 01/27/2026 Culture, Urine, Routine Microbiology Routine Subacute vaginitis Abnormal female pelvic exam Expected: 01/27/2025 (Approximate), Expires: 01/27/2026 documented as of this encounter Procedures Procedure Name Priority Date/Time Associated Diagnosis Comments POCT URINALYSIS DIPSTICK Routine 01/27/2025 12:27 PM EST Subacute vaginitis Abnormal female pelvic exam CHLAMYDIA/N. GONORRHOEAE RNA, TMA, UROGENITAL Routine 01/27/2025 12:22 PM EST Subacute vaginitis Abnormal female pelvic exam documented in this encounter Results * POCT Urinalysis (01/27/2025 12:27 PM EST) Color, UA Yellow Clarity, UA Clear Glucose, UA Negative Bilirubin, UA Negative Ketones, UA Negative Spec Grav, UA 1.015 Blood, UA Negative Negative, None Detected pH, UA 7.0 Protein, UA Negative Urobilinogen, UA 0.2 Leukocytes, UA Negative Negative, Rare, Trace Nitrite, UA Negative Negative, None Detected Appearance, UA yellow QC Media Lot # [id number] Lot# Expiration Date Urine (Urine, Random) 01/27/2025 12:27 PM EST Zamzam Vidal MD POINT OF CARE TEST ENTER /EDIT ORDERABLES Final Result * Chlamydia/N. Gonorrhoeae RNA, TMA, Urogenitial (01/27/2025 12:22 PM EST) CT PCR NOT DETECTED Not Detect. [facility] Comment:A not detected test result does not exclude the possibilityof infection because test results can be affected byimproper specimen collection, concurrent antibiotic therapy,or the number of organisms in the specimen which may bebelow the sensitivity of the test. As with many diagnostictests, results from the Xpert CT/NG assay should beinterpreted in conjunction with other laboratory andclinical data available to the clinician.Xpert CT/NG performance has not been evaluated in patientsless than 14 years of age. The assay should not be used forthe evaluationof suspected sexual abuse or for other medico-legalindications. Additional testing is recommended in anycircumstance when false positive or false negative resultscould lead to adverse medical, social or psychologicalconsequences. NG PCR NOT DETECTED Not Detect. [facility] Comment:A not detected test result does not exclude the possibilityof infection because test results can be affected byimproper specimen collection, concurrent antibiotic therapy,or the number of organisms in the specimen which may bebelow the sensitivity of the test. As with many diagnostictests, results from the Xpert CT/NG assay should beinterpreted in conjunction with other laboratory andclinical data available to the clinician.Xpert CT/NG performance has not been evaluated in patientsless than 14 years of age. The assay should not be used forthe evaluationof suspected sexual abuse or for other medico-legalindications. Additional testing is recommended in anycircumstance when false positive or false negative resultscould lead to adverse medical, social or psychologicalconsequences. Urine (Urine, Random) 01/27/2025 12:22 PM EST 01/27/2025 4:28 PM EST us Zamzam Vidal MD LAB MICROBIOLOGY - [facility] ORDERABLES Final Result [facility] [address] [place] [phone] documented in this encounter Visit Diagnoses Diagnosis Subacute vaginitis- Primary Abnormal female pelvic exam documented in this encounter Care Teams Manual Lathe Operator Relationship Specialty Start Date End Date Zamzam Vidal MD [address] [place] [phone] PCP - General Family Medicine 03/11/18 documented as of this encounter
[2025-01-28 03:12] LABS: Bacterial Vaginosis PCR NEGATIVE (Negative); Candida Group PCR NOT DETECTED (Not Detect); Candida glab krusei PCR NOT DETECTED (Not Detect); Trichomonas vaginalis PCR NOT DETECTED (Not Detect)
[2025-01-28 03:43] LABS: CT PCR NOT DETECTED (Not Detect.); NG PCR NOT DETECTED (Not Detect.)
--- OUTSIDE RECORDS SUMMARY | 2025-01-28 04:51 | XMS_ITS | Encounter Summary ---
Author Organization [employer] Address [address] [facility] 7t [place] [address] Care Team Providers Care Boring Mill Operator For Metal Name Role Phone Zamzam Vidal MD Primary Care Provider + Reason for Visit * Reason Comments Med Refill Encounter Details Date Type Department Care Team ([facility] Contact Info) Description 04/08/2023 Refill [facility] [address] [place], [place] [phone] Zamzam Vidal MD [address] [place], [place] [phone] Heartburn Social History Tobacco Use Types Packs/Day [...] t he electric, gas, oil or water in[employer] threatened to shut off services in your [...] Heartburn documented in this encounter Care Teams Boring Mill Operator For Metal Relationship Specialty Start Date End Date Zamzam Vidal MD [address] [place] [phone] PCP - General Family Medicine 03/11/18 documented as of this encounter
--- OUTSIDE RECORDS SUMMARY | 2025-01-28 04:51 | XMS_ITS | Clinical Summary ---
Author Organization [employer] Address [address] [facility] 7t [place] [address] Care Team Providers Care Unit Controller Name Role Phone Zamzam Vidal MD Primary Care Provider + Allergies Active Allergy Reactions Criticality Noted Date Comments Diphenhydramine Palpitations,Rash Low 08/17/2016 Other reaction(s): palpitations Medications cyanocobalamin (Vitamin B-12) 1000 MCG tablet Take 1 tablet by mouth in the morning. Active cholecalcifero l (Vitamin D-3) 25 MCG (1000 UT) tablet Take 1,000 Units by mouth in the morning. Active omega-3 1000 MG capsule capsule Take 800 mg by mouth in the morning. Active alpha tocopherol (Vitamin E) 400 units capsule Take 400 Units by mouth in the morning. Active zoster vaccine-recomb inant adjuvanted (Shingrix) 50 MCG/0.5ML vaccine Inject 0.5 mL into the shoulder, thigh, or buttocks. 01/21/20 19 Active gabapentin (Neurontin) 300 MG capsule Take 2 capsules (600 mg) by mouth 3 times daily. 540 capsule 3 11/25/19 25 026 Active metroNIDAZOLE (Flagyl) 500 MG tablet Take 1 tablet (500 mg) by mouth 2 times daily for 7 days. 14 tablet 01/28/20 25 025 Active metroNIDAZOLE (Flagyl) 500 MG tablet Take 1 tablet (500 mg) by mouth 2 times daily for 7 days. 14 tablet 01/28/20 25 025 Discontinued(Re order (will not trigger notification to Pharmacy)) Active Problems Problem Noted Date Diagnosed Date Continuous leakage of urine 07/15/2024 Assessment & Plan (07/15/2024 10:31 AM EDT): Unclear if related to bladder descent (she is status post cystopexy 30 years ago). We discussed about Kegel's exercises and lifestyle modifications for potential interstitial cystitis She is currently wearing urinary pads, will follow-up at next visit with ultrasound Hematuria 07/15/2024 Assessment & Plan (11/24/2024 4:23 PM EDT): Unclear if she has interstitial cystitis or vaginitis Will do Pap smear, if pelvic exam is fairly normal, will refer to urology Assessment & Plan (07/15/2024 10:30 AM EDT): Unclear if patient has interstitial cystitis due to new onset of urinary incontinence. There is no evidence of UTI today We discussed about Kegel's exercises and dietary modification especially avoid sodas, coffee, alcohol or spicy foods Order renal bladder ultrasound and follow-up with me Gastroesophageal reflux disease 08/22/2023 Assessment & Plan (10/01/2023 2:14 PM EDT): Start Omeprazole Has fu with GI next month, needs EGD. Helicobacter pylori stool test positive 04/18/19 24 Assessment & Plan (04/18/2023 12:37 PM EST): [...] sucralfate and fu in 1mo Colonoscopy on 2018 was normal/neg malignancy. At risk for falling [...] week on presurgical testing Mixed hyperlipidemia 07/25/2022 Assessment & Plan (11/24/2024 4:23 PM EDT): We discussed re rx options. She opted for nonpharmacological treatment despite having hyperlipidemia for longer than a year. We discussed about one the consequences of uncontrolled hyperlipidemia. Recommended moderate amount of exercise and increase consumption of fruit, vegetables, fish and high fiber foods. Should decrease consumption of highly saturated fats or trans fats. 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 Assessment & Plan (11/24/2024 1:45 PM EDT): Has both peripheral neuropathy and radiculopathy, We discussed re stretching exercises for her lower back Increase gabapentin to 600mg tid + Tylenol Advised to come to acupuncture and use diclofenac gel prn She's seen by neurology, Dr Oviedo. Assessment & Plan (07/15/2024 10:11 AM EDT): Sp NCS 2023, seen by Dr Oviedo.' Continue meloxicam and tylenol prn + gabapentin We discussed re stretching exercises for her lower back Will add Iron sulfate along with magnesium sulfate that helps with ?RLS, fu in 3mo Assessment & Plan (10/01/2023 2:11 PM EDT): Mostly asx on Gabapentin Assessment & Plan (03/21/2023 3:47 PM EST): Persistent even after disc surgery + PT. Refer to neurology for further evaluation, NCS on 2017 showed tarsal tunnel syndrome Ambulation with a [...] month Essential hypertension 06/20/2022 Assessment & Plan (07/15/2024 10:30 AM EDT): Controlled. Compliant w/meds Continue off medications and follow-up in 3 to 4 months counseled re low salt diet/increase moderate physical activity. Check home BP BIW and prn CP/AVILA/LINDSEY Non smoking patient. Order labs prior to next visit Assessment & Plan (10/01/2023 2:13 PM EDT): [...] risk of fracture due to osteoporosis 06/21/19 23 Postmenopause 06/20/2022 Benign neoplasm of soft tissue 06/19/2022 CKD (chronic kidney disease) stage 3, GFR 30-59 ml/min (CMS/HCC) 06/19/2022 Assessment & Plan (03/21/2023 3:46 PM EST): Resolved, GFR on 2022 remained > 60 FU labs as needed for HTN. Keep CV risk factors under control, see above Increased frequency of urination 06/19/2022 Assessment & Plan (11/24/2024 1:50 PM EDT): No evidence of UTI, renal abn, will ro atrophic vaginitis, will schedule PAP smear with me, may need vaginal estrogen trial. Onychomycosis 06/19/2022 Peroneal neuropathy 06/19/2022 Seborrheic keratosis 06/19/2022 Abnormal gait 06/19/2022 DDD (degenerative disc disease), lumbar 05/08/19 Assessment & Plan (09/20/2022 12:28 PM EDT): [...] 04/04/2022 Lumbar radiculopathy 04/04/2022 Assessment & Plan (11/24/2024 4:24 PM EDT): Status post lumbar spine surgery x 2 Increase gabapentin to 600 mg 3 times daily along with Tylenol Continue relation with cane as needed Advised regarding zoster immunization Declined referral to pain clinic, will follow-up in 2 or 3 months Assessment & Plan (07/15/2024 10:29 AM EDT): Status post lumbar spine surgery, doing fairly well with occasional recurrent episodes. Continue Tylenol and gabapentin as needed We discussed about prevention of falls, she has a cane he continues to do strengthening exercises for her lower extremities Advise regarding softer immunization, reconsult as needed Assessment & Plan (11/15/2022 3:01 PM EDT): [...] Encounters Date Type Department Care Team Description 01/27/2025 11:15 AM EST Procedure Visit [address] [address] Zamzam Vidal MD Subacute vaginitis (Primary Dx); Abnormal female pelvic exam 01/27/2025 Orders Only [address] [address] Zamzam Vidal MD 01/27/2025 Travel 01/26/[address] [address] Zamzam Vidal MD chart prep 01/20/2025 Travel 11/24/2024 1:45 PM EDT Office Visit [address] [address] Zamzam Vidal MD Lumbar radiculopathy (Primary Dx); Neuropathy involving both lower extremities; Mixed hyperlipidemia; Increased frequency of urination; Other microscopic hematuria; Overweight; Dietary counseling; Exercise counseling 11/24/2024 Travel 11/23/[address] [address] Zamzam Vidal MD Chart prep 11/17/2024 Travel 11/16/2024 Patient Outreach [address] [address] Zamzam Vidal MD Pre-visit Planning ([facility] screening completed on 07/08/2024) from Last 3 Months Immunizations Immunization Administration Dates Next Due Hep A, Adult [...] 14 01/27/2025 12:06 PM EST Oxygen Saturation 99% 03/19/2023 9:52 AM EST Inhaled Oxygen Concentration - - Weight 76.7 kg (169 lb) 01/27/2025 12:06 PM EST Height 165.1 cm (5' 5 ) 01/27/2025 12:06 PM EST Body Mass Index 28.12 01/27/2025 12:06 PM EST Plan of Treatment Health Maintenance Due Date Last Done Comments CT Colonography 1949 FIT DNA/Cologuard 1950 FIT 1950 FOBT 1950 Sigmoidoscopy 1950 Hepatitis C Screening 07/20/1967 Zoster Vaccines (1 of 2) 07/20/1999 RSV Patients and Patients Aged 60 years or older (1 - 1-dose 75+ series) 2024 COVID-19 Vaccine ( season) 2025 11/19/2024, 11/28/2023, 09/26/2021, Additional history exists SDOH Screening 07/08/2025 07/08/2024 Depression Screening 07/15/2025 07/15/2024, 07/16/19 25 Alcohol/Substance Use Screening 11/24/2025 11/24/2024 Tobacco Screening 01/27/2026 01/27/2025 DTaP/Tdap/Td Vaccines (4 - Td or Tdap) 09/25/2026 09/25/2016, 09/15/2016, 01/31/2015 Colonoscopy 03/12/2029 03/12/2024, 10/07/2017 Colorectal Cancer Screening 03/12/2029 Lipid Panel 08/14/2029 08/14/2024 Hepatitis A Vaccines Aged Out 11/27/2013 No long er eligible based on patient's age to complete this topic Pneumococcal Vaccine: 50+ Years Completed 05/08/2016, 05/02/2015, 05/02/2015, Additional history exists Influenza Vaccine Completed 11/19/2024, , 11/15/2022, Additional history exists HIB Vaccines Aged Out [...] EST Subacute vaginitis Abnormal female pelvic exam BACTERIAL VAGINOSIS PANEL Routine 01/27/2025 12:22 PM EST CHLAMYDIA/N. GONORRHOEAE RNA, TMA, UROGENITAL Routine 01/27/2025 12:22 PM EST Subacute vaginitis Abnormal female pelvic exam LIPID PANEL WITH REFLEX TO DIRECT LDL Routine 08/14/2024 10:31 AM EDT Essential hypertension HM COLONOSCOPY Routine 03/12/2024 from Last 3 Months or Most Recently Relevant to Health Maintenance Results * POCT Urinalysis (01/27/2025 12:27 PM [...] Media Lot # [id number] Lot# Expiration Date ,832 Urine (Urine, Random) 01/27/2025 12:27 PM EST Zamzam Vidal MD POINT OF CARE TEST ENTER /EDIT ORDERABLES Final Result * Bacterial Vaginosis (01/27/2025 12:22 PM EST) Pathologist [facility] TRICHOMONAS VAGINALIS DETECTION BY PCR NOT DETECTED Not Detect [facility] BACTERIAL VAGINOSIS DETECTION BY PCR NEGATIVE Negative [facility] Comment:The BV organism targ ets of the Xpert Xpress MVP test can becommensal in women; Xpert Xpress MVP positive results forbacterial vaginosis should be considered in conjunction withother clinical and patient information to determine thedisease status. Organisms that are not detected by the XpertXpress MVP test have also been reported to be associatedwith BV and aerobic vaginitis.The Xpert Xpress MVP test performance has not been evaluatedin patients under the age of 14. SUE GROUP DETECTION BY PCR NOT DETECTED Not Detect [facility] Sue glab krusei PCR NOT DETECTED Not Detect [facility] 01/27/2025 12:2 2 PM EST 01/27/2025 4:32 PM EST Zamzam Vidal MD LAB MICROBIOLOGY - GENER AL ORDERABLES Final Result [facility] [address] [place] [phone] * Chlamydia/N. Gonorrhoeae RNA, TMA, Urogenitial (01/27/2025 12:22 PM EST) Pathologist [facility] CT PCR NOT DETECTED Not Detect. [facility] Comment:A not detected test result does [...] psychologicalconsequences. NG PCR NOT DETECTED Not Detect. [facility] Comment:A not detected test result does [...] us Zamzam Vidal MD LAB MICROBIOLOGY - GENER AL ORDERABLES Final Result [facility] [address] [place] [phone] * (ABNORMAL) Lipid Panel with Reflex to Direct LDL (08/14/2024 10:31 AM EDT) Triglycerides 95 <150 mg/dL [facility] Comment:Desirable Triglyceri de: less than 150 mg/dLBorderline High Triglyceride 150-199 mg/dLHigh Triglyceride: 200-499 mg/dLVery High Triglyceride: greater than or equal to 5OO mg/dL Cholesterol 239(H) <200 mg/dL [facility] Comment:Desirable Cholestero l: less than 200 mg/dLBorderline High Cholesterol: 200-239 mg/dLHigh Cholesterol: greater than 239 mg/dL LDL Cholesterol Calculated 145(H) <100 mg/dL [facility] Comment:Desirable LDL: less than 100 mg/dLNear Optimal/Above Optimal LDL: 110- 129 mg/dLBorderline High LDL: 130-159 mg/dLHigh LDL: 160-189 mg/dLVery High LDL: greater than or equal to 190 mg/dL HDL Cholesterol 75 >40 mg/dL [facility] Comment:Desirable HDL: great er than 40 mg/dL Note: This HDL assay may give artificially low results in patients with liver disease. Blood 08/14/2024 10:3 1 AM EDT 08/14/2024 10:31 AM EDT us Zamzam Vidal MD LAB BLOOD ORDERABLES Fin al Result Performing Organization Address City/[facility]/ZIP Co de Phone Number [facility] [address] [place] [phone] * (ABNORMAL) Hm Colonoscopy (03/12/2024) Colonoscopy Abnormal(A ) Normal [facility] Comment:TA us Zamzam Vidal MD HEALTH MAINTENANCE Final Result Performing Organization Address [facility] Co de Phone Number [facility] [address] [place] [phone] from Last 3 Months or Most Recently Relevant to Health Maintenance Insurance [facility] MEDICARE ADVANTAGE HMO Care Teams Unit Controller Relationship Specialty Start Date End Date Zamzam Vidal MD [address] [place] [phone] PCP - General Family Medicine 03/11/18
--- OUTSIDE RECORDS SUMMARY | 2025-01-28 04:51 | XMS_ITS | Encounter Summary ---
Author Organization [employer] Address [address] [facility] 7t [place] [address] Care Team Providers Care Senior Engineering Manager Name Role Phone Zamzam Vidal MD Primary Care Provider + Reason for Visit * Reason Comments Med Refill Encounter Details Date Type Department Care Team ([facility] Contact Info) Description 08/22/2023 Refill [facility] [address] [place], [place] [phone] Zamzam Vidal MD [address] [place], [place] [phone] Social History Tobacco Use Types Packs/Day Years [...] on filedocumented in this encounter Care Teams Senior Engineering Manager Relationship Specialty Start Date End Date Zamzam Vidal MD [address] [place] [phone] PCP - General Family Medicine 03/11/18 documented as of this encounter
--- OUTSIDE RECORDS SUMMARY | 2025-01-28 04:51 | XMS_ITS | Clinical Summary ---
Author Organization [facility], Address [address] [place] [phone] Phone Care Team Providers Care Spray Gun Sizer Name Role Phone Unavailable Primary Care Provider [...] 92 09/18/2022 11:04 AM EDT Temperature 36.4 C (97.6 F) 09/18/2022 11:04 AM EDT Respiratory Rate - - Oxygen Saturation 97% [...] Cancer Screening: Sigmoidoscopy 1998 Influenza Vaccine (#1) 2024 8, 11/26/2016, 05/08/2016, Additional history exists Pneumococcal Vaccine: 50+ Years Completed 05/08/2016, 05/02/2015, 05/02/2015, Additional history exists Hepatitis B Vaccine Aged Out No longe r eligible based on patient's age to complete this topic Insurance [facility] Medicare
--- OUTSIDE RECORDS SUMMARY | 2025-01-28 04:51 | XMS_ITS | Clinical Summary ---
Author Organization [facility] Address [address] [place] [address] Care Team Providers Care Supervisor Quality Control Name Role Phone Zamzam Vidal MD Primary Care Provider [phone] Allergies Active Allergy Reactions Criticality Noted Date [...] 84 05/30/2020 2:02 PM EDT Temperature 36.4 C (97.5 F) 10/07/2017 9:46 AM EDT Respiratory Rate 16 10/07/2017 10:05 AM EDT [...] Osteoporosis Screening (DEXA Scan) 04/29/2021 04/29/2019, 05/13/2015 RSV Adult > 60+ Yrs or (1 - 1-dose 75+ series) 2024 Influenza Vaccine (#1) 2024 , 12/06/2021, 11/08/2020, Additional history exists DTap / Tdap / [...] this topic Medical Devices Implanted Type Area Environmental Compliance Engineer Device Identifier Shelf Expiration Date Model / Serial / Lot Sponge Surgiflo 8ml Hemostatic Matrix Absorbable Latex Free - [id number] - [id number] Implanted:Qty: 1 on 10/17/2016 by Dom Lion MD [place] [facility] Hemostatic Agent Posterio r: Spine Lumbar [employer] 07/08/2018 2991 / / [id number] Sponge Surgiflo 8ml Hemostatic Matrix Absorbable Latex Free - [id number] - [id number] Implanted:Qty: 1 on 10/17/2016 by Dom Lion MD at [facility] Hemostatic Agent Posterio r: Spine Lumbar [employer] 01/08/2018 2991 / / [id number] Bone Graft Infuse 2.5x5cm 6 In Absorable Collagen Kit Lg - [id number] - [id number] Implanted:Qty: 1 on 10/17/2016 by Dom Lion MD at [facility] Left: Spine Lumbar [employer] 04/11/2018 [id number] / / [id number] F Spacer Transcontinental M Spacer 6d 20mm X 60mm 11mm - [id number] - [id number] Implanted:Qty: 1 on 10/17/2016 by Dom Lion MD at [facility] Left: Spine Lumbar [employer] 375.581 / / [place] Screw Implanted:Qty: 1 on 10/17/2016 by Dom Lion MD at [facility] Left: Spine Lumbar [employer] 176.730 / / Screw [place] 35mm 5.5mm Self Drill Variable Angle Bone - [id number] - [id number] Implanted:Qty: 5 on 10/17/2016 by Dom Lion MD at [facility] Left: Spine Lumbar [employer] 176.735 / / Spacer Transcontinental M Spacer 6d 20mm X 55mm 11mm - [id number] - [id number] Implanted:Qty: 2 on 10/17/2016 by Dom Lion MD at [facility] Left: Spine Lumbar [employer] 375.481 / / Plate Bone Intercontinental 6 D L20 Mm X W11 Mm Spine Interv - [id number] - [id number] Implanted:Qty: 3 on 10/17/2016 by Dom Lion MD at [facility] Left: Spine Lumbar [employer] 187.061 / / Advance Directives For more information, please contact: [phone] Documents on File Type Date Recorded Patient Playback Operator Expl anation Advance Directive and Living Will 04/28/2019 4:21 PM ; Latest Code Status on File Code Status Date Activated Date Inactivated Comments Full Code 10/17/2016 3:42 PM 10/21/2016 9:17 PM This c ode status was ascertained in the following way: discussion with patient . Care Teams Supervisor Quality Control Relationship Specialty Start Date End Date Zamzam Vidal MD PCP - General Family Medicine 03/09/15
--- OUTSIDE RECORDS SUMMARY | 2025-01-28 04:51 | XMS_ITS | Encounter Summary ---
Author Organization [employer] Address [address] [place] [address] 7t [place] [address] Care Team Providers Care Plant Attendant Name Role Phone Zamzam Vidal MD Primary Care Provider + Reason for Visit * Reason Onset Date Comments FYI 06/05/2022 Encounter Details Date Type Department Care Team ([facility] st Contact Info) Description 06/05/2022 Telephone [facility] MEDICINE [address] [place], [place] [phone] Zamzam Vidal MD [address] [place] [address] FYI Social History Tobacco Use Types Packs/Day [...] Tc from pt returning call per notes, marine underwriter contacted pharmacy to confirmed, pharmacist stated theyre attempt to fill script and script has been covered. Advised will leave a message a FYI. * Telephone Encounter - Geokaitlin Castellonsandip Nazario - 06/05/2022 12:59 PM EDT Tc from pt stating that medication olmesartan (Benicar) 5 MG tablet Is not covered by her insurance. Please contact pt at [phone] documented in this encounter Plan of Treatment Not on file documented as of this encounter Visit Diagnoses Not on filedocumented in this encounter Care Teams Plant Attendant Relationship Specialty Start Date End Date Zamzam Vidal MD [address] [place] [address] PCP - General Family Medicine 03/11/18 documented as of this encounter
--- OUTSIDE RECORDS SUMMARY | 2025-01-28 04:51 | XMS_ITS | Encounter Summary ---
Author Organization [employer] Address [address] [facility] 7t [place] [address] Care Team Providers Care Cable Television Installer Name Role Phone Zamzam Vidal MD Primary Care Provider + Encounter Details Date Type Department Care Team (Late st Contact Info) Description 05/23/2022 Orders Only [facility] MEDICINE [address] [place], [place] [phone] Indiana Garcia MD [address] [place], [place] [phone] Neuroforaminal stenosis of lumbar spine (Primary Dx) [...] Primary documented in this encounter Care Teams Cable Television Installer Relationship Specialty Start Date End Date Zamzam Vidal MD [address] [place], [place] [phone] PCP - General Family Medicine 03/11/18 documented as of this encounter
--- OUTSIDE RECORDS SUMMARY | 2025-01-28 04:51 | XMS_ITS | Encounter Summary ---
Author Organization [employer] Address [address] [facility] 7t [place] [address] Care Team Providers Care Box Storage Worker Name Role Phone Zamzam Vidal MD Primary Care Provider + Reason for Visit * Reason Onset Date Comments Referral 03/21/2023 Encounter Details Date Type Department Care Team ([facility] Contact Info) Description 03/21/2023 Telephone [facility] MEDICINE [address] [place], [place] [phone] Zamzam Vidal MD [address] [place] [address] Referral Social History Tobacco Use Types Packs/Day [...] t he electric, gas, oil or water [employer] threatened to shut off services in your [...] 1:30 PM EST Tc from pt states [facility] has not received referral. Please re fax to [phone] * Telephone Encounter - Zazmam Vidal MD - 03/28/2023 3:53 PM EST Please refer to [facility] * Telephone Encounter - Brionna Aguilar RN - 03/21/2023 3:52 PM EST Noted pt.'s last colonoscopy was September 2017 at [facility] in [place], due for 5 year repeat in September 2022. TC placed to pt., pt. Reports she called this facility to attempt to book however they reported that provider no longer worked there therefore she would like to go to [facility]. Advised pt GI referral request would be sent to PCP for overdue colonoscopy. * Telephone Encounter - Lisa Leyva - 03/21/2023 3:16 PM EST Tc from pt requesting a referral to [facility] for colonoscopy. Please contact pt at [phone] documented in this encounter Plan of Treatment Not on file documented as of this encounter Visit Diagnoses Diagnosis Tubular adenoma of colon- Primary Benign neoplasm of colon documented in this encounter Care Teams Box Storage Worker Relationship Specialty Start Date End Date Zamzam Vidal MD [address] [place] [address] PCP - General Family Medicine 03/11/18 documented as of this encounter
--- OUTSIDE RECORDS SUMMARY | 2025-01-28 04:51 | XMS_ITS | Encounter Summary ---
Author Organization [employer] Address [address] [facility] 7t [place] [address] Care Team Providers Care Weir Fisher Name Role Phone Zamzam Vidal MD Primary Care Provider + Reason for Visit * Reason Comments Med Refill Encounter Details Date Type Department Care Team ([facility] Contact Info) Description 05/31/2023 Refill [facility] MEDICINE [address] [place], [place] [phone] Zamzam Vidal MD [address] [place], [place] [phone] Bacterial infection due to H. pylori Social [...] pylori) documented in this encounter Care Teams Weir Fisher Relationship Specialty Start Date End Date Zamzam Vidal MD [address] [place] [address] PCP - General Family Medicine 03/11/18 documented as of this encounter
--- OUTSIDE RECORDS SUMMARY | 2025-01-28 04:51 | XMS_ITS | Encounter Summary ---
Author Organization [employer] Address [address] [facility] 7t [place] [address] Care Team Providers Care Cad Engineer Name Role Phone Zamzam Vidal MD Primary Care Provider + Reason for Visit * Reason Onset Date Comments chart prep 01/26/2025 Encounter Details Date Type Department Care Team ([facility] st Contact Info) Description 01/26/2025 Telephone [facility] MEDICINE [address] [place], [place] [phone] Zamzam Vidal MD [address] [place] [address] chart prep Social History Tobacco Use Types Packs/Day Years [...] encounter Miscellaneous Notes * Telephone Encounter - Audra Barahona MA - 01/26/2025 11:05 AM EST Chart Prep Labs: done Images: done Referrals: complete Vaccines due: RSV and Zoster Screenings: not applicable Overdue care gaps: Not applicable documented in this encounter Plan of Treatment Not on file documented as of this encounter Visit Diagnoses Not on filedocumented in this encounter Care Teams Cad Engineer Relationship Specialty Start Date End Date Zamzam Vidal MD [address] [place] [address] PCP - General Family Medicine 03/11/18 documented as of this encounter
--- OUTSIDE RECORDS SUMMARY | 2025-01-28 04:51 | XMS_ITS | Encounter Summary ---
Author Organization [employer] Address [address] [facility] 7t [place] [address] Care Team Providers Care Hr Recruiter Name Role Phone Zamzam Vidal MD Primary Care Provider + Reason for Visit * Reason Onset Date Comments Med Refill 02/27/2024 Encounter Details Date Type Department Care Team ([facility] st Contact Info) Description 02/27/2024 Refill [facility] MEDICINE [address] [place], [place] [phone] Zamzam Vidal MD [address] [place], [place] [phone] Social History Tobacco Use Types Packs/Day Years [...] on filedocumented in this encounter Care Teams Hr Recruiter Relationship Specialty Start Date End Date Zamzam Vidal MD [address] [place] [phone] PCP - General Family Medicine 03/11/18 documented as of this encounter
--- OUTSIDE RECORDS SUMMARY | 2025-01-28 04:51 | XMS_ITS | Encounter Summary ---
Author Organization [employer] Address [address] [facility] [address] 7t [place] [address] Care Team Providers Care Director Of Land Acquisition Name Role Phone Zamzam Vidal MD Primary Care Provider + Encounter Details Date Type Department Care Team ([facility] st Contact Info) Description 01/27/2025 Orders Only [facility] MEDICINE [address] [place], [place] [phone] Zamzam Vidal MD [address] [place], [place] [phone] Social History Tobacco Use Types Packs/Day Years [...] on file documented as of this encounter Procedures Procedure Name Priority Date/Time Associated Diagnosis Comments BACTERIAL VAGINOSIS PANEL Routine 01/27/2025 12:22 PM EST documented in this encounter Results * Bacterial Vaginosis (01/27/2025 12:22 PM EST) TRICHOMONAS VAGINALIS DETECTION BY PCR NOT DETECTED Not Detect [facility] BACTERIAL VAGINOSIS DETECTION BY PCR NEGATIVE Negative [facility] Comment:The BV organism targ ets [...] DETECTION BY PCR NOT DETECTED Not Detect [facility] Sue glab krusei PCR NOT DETECTED Not Detect [facility] 01/27/2025 12:2 2 PM EST 01/27/2025 4:32 PM EST us Zamzam Vidal MD LAB MICROBIOLOGY - GENER AL ORDERABLES Final Result [facility] [address] [place] [address] [phone] documented in this encounter Visit Diagnoses Not on filedocumented in this encounter Care Teams Director Of Land Acquisition Relationship Specialty Start Date End Date Zamzam Vidal MD [address] [place] [phone] PCP - General Family Medicine 03/11/18 documented as of this encounter
--- OUTSIDE RECORDS SUMMARY | 2025-01-28 04:51 | XMS_ITS | Encounter Summary ---
Author Organization [employer] Address [address] [facility] [address] 7t [place] [address] Care Team Providers Care Bumboater Name Role Phone Zamzam Vidal MD Primary Care Provider + Encounter Details Date Type Department Care Team (Latest Contact Info) Description 01/27/2025 Travel Social History Tobacco Use Types Packs/Day Years [...] your housing situation today? I have miriam bdaillo 08/12/[address] you li [...] on filedocumented in this encounter Care Teams Bumboater Relationship Specialty Start Date End Date Zamzam Vidal MD [address] [place] [address] PCP - General Family Medicine 03/11/18 documented as of this encounter
--- OUTSIDE RECORDS SUMMARY | 2025-01-28 04:51 | XMS_ITS | Encounter Summary ---
Author Organization [employer] Address [address] [facility] 7t [place] [address] Care Team Providers Care Livestock Showman Name Role Phone Zamzam Vidal MD Primary Care Provider + Reason for Visit * Reason Onset Date Comments Med Refill 03/29/2023 Encounter Details Date Type Department Care Team ([facility] st Contact Info) Description 03/29/2023 Telephone [facility] MEDICINE [address] [place], [place] [phone] Zamzam Vidal MD [address] [place], [place] [phone] Med Refill Social History Tobacco Use Types [...] MG EC tablet To be sent to: [id number] - [place], [place] - [address] [place] [address] AT [facility] documented in this encounter Plan of Treatment Not on file documented as of this encounter Visit Diagnoses Not on filedocumented in this encounter Care Teams Livestock Showman Relationship Specialty Start Date End Date Zamzam Vidal MD [address] [place] [phone] PCP - General Family Medicine 03/11/18 documented as of this encounter
--- OUTSIDE RECORDS SUMMARY | 2025-01-28 04:52 | XMS_ITS ---
Author Name [facility] Organization Unknown Results Test Name/Text Value Interpretation Date Range Source SPECIMEN SOURCE STOOL Normal 03/22/2023 CTT [facility] C DIFF FINAL RESULT Test not performed. Test not performed on formed stools Abnormal 03/22/2023 - [facility]TT[facility] CHLORIDE SERPL [facility] 106.0 mmol/L Normal 03/22/2023 98 - 1 07 [facility] POTASSIUM SERPL [facility] 4.4 mmol/L Normal 03/22/2023 3.5 - 5.[facility] SODIUM [facility] 140.0 mmol/L Normal 03/22/2023 135 - 14 5 [facility] Glomerular filtration rate/1.73 sq M. predicted 78.0 Normal 03/22/2023 60 - [facility] BUN SERPL [facility] 20.0 mg/dL Above high normal 03/22/2023 7 - 1 7 [facility] GLUCOSE P FAST [facility]PL [facility] 89.0 mg/dL Normal 03/22/2023 70 - 99 [facility] CREAT [facility] 0.8 mg/dL Normal 03/22/2023 0.5 - 1 CT [facility] HCO3 SER SCNC 29.0 mmol/L Normal 03/22/2023 24 - 32 [facility] ANION GAP [facility]PL [facility] 5.0 mmol/L Normal 03/22/2023 5 - 14 [facility] CALCIUM [facility] 9.7 mg/dL Normal 03/22/2023 8.4 - 10.2 [facility] History of Medication Use Medication Directions Dispensed Refills Start Date End Date Stat us pwwmmo-ivuomiujn-expwsc ium sulfates (Suprep Bowel Prep Kit) 17.5-3.13-1.6 GM/177ML Solution solution Follow directions provided by physician's office. 07/16/2023 active gabapentin (NEURONTIN) 300 MG capsule 05/10/2020 active SUPREP BOWEL PREP KIT 17.5-3.13-1.6 GM/180ML SOLN 09/03/2017 active gabapentin (NEURONTIN) 600 MG tablet 07/29/2017 active naproxen (NAPROSYN) 500 MG tablet Take 500 mg by mouth daily. 10/29/2016 active acetaminophen (TYLENOL) 325 MG tablet Take 2 tablets (650 mg total) by mouth every 6 (six) hours as needed for pain. 10/20/2016 active cholecalciferol (VITAMIN D3) 1000 units tablet Take 1,000 Units by mouth daily. active Cyanocobalamin (VITAMIN B12 PO) Take 1 tablet by mouth daily. active gabapentin (NEURONTIN) 600 MG tablet Take 600 mg by mouth 3 (three) times a day. active naproxen (NAPROSYN) 500 MG tablet Take 500 mg by mouth 2 (two) times a day with meals. Take with meals or food to reduce stomach upset. active OMEGA-3 FATTY ACIDS PO Take 800 mg by mouth daily. active vitamin E 400 UNIT capsule Take 400 Units by mouth daily. active Allergies Allergen Reaction Severity Comment Documented Date Source Statu s DIPHENHYDRAMINE RASH/DERMATITISR MISHEL Benadryl,Skin Rash 07/16/2023 CCT active Problems Problem Status Onset Date Problem Type Date of Resoluti on Source Scoliosis active 2016-11-20 ProblemAct [facility] Breast cancer screening by mammogram active EncounterDiagnosisAct [facility] H Back pain with sciatica active 2016-11-20 ProblemAct [facility] Encounters Encounter Type Encounter Reason Primary Diagnosis Location Date Ambulatory Encounter for screening mammogram for malignant neoplasm of breast Encounter for screening mammogram for malignant neoplasm of breast [facility] 05/29/2023 Ambulatory Hyperglycemia, unspecified Hyperglycemia, unspecified [facility] 03/22/2023 Ambulatory Hyperkalemia [facility] 2022 Care Team Organization Name Specialty Phone Email Start Date End Da thierry [facility] 07/16/2023 [facility] BHARGAVI DE LA O Primary Care 09/04/2022
--- OUTSIDE RECORDS SUMMARY | 2025-01-28 04:52 | XMS_ITS | Encounter Summary ---
Author Organization [employer] Address [address] [place] [address] 7t [place] [address] Care Team Providers Care Boston Cutter Name Role Phone Zamzam Vidal MD Primary Care Provider + Encounter Details Date Type Department Care Team ([facility] st Contact Info) Description 08/28/2022 Abstract [facility] MEDICINE [address] [place], [place] [phone] Zamzam Vidal MD [address] [place], [place] [phone] Social History Tobacco Use Types Packs/Day Years [...] 5 year follow up us Historical Provider HEALTH MAINTENANCE Edited Result - Final documented in this encounter Visit Diagnoses Not on filedocumented in this encounter Care Teams Boston Cutter Relationship Specialty Start Date End Date Zamzam Vidal MD [address] [place] [phone] PCP - General Family Medicine 03/11/18 documented as of this encounter
--- OUTSIDE RECORDS SUMMARY | 2025-01-28 04:52 | XMS_ITS | Encounter Summary ---
Author Organization [employer] Address [address] [facility] 7t [place] [address] Care Team Providers Care Inset Cutter Name Role Phone Zamzam Vidal MD Primary Care Provider + Reason for Visit * Reason Onset Date Comments order modify 04/05/2022 Encounter Details Date Type Department Care Team ([facility] st Contact Info) Description 04/05/2022 Telephone [facility] MEDICINE 230 [place], [place] [phone] Zamzam Vidal MD [address] [place] [address] order modify Social History Tobacco Use Types [...] . Any question please call phone # [phone]. documented in this encounter Plan of Treatment Scheduled Orders Name Type Priority Associated Diagnoses Orde r Schedule CT Lumbar Spine w/o Contrast Imaging Routine Lumbar radiculopathy, chronic Gait disturbance Expected: 04/06/2022 (Approximate), Expires: 04/06/2023 documented as of this encounter Visit Diagnoses Diagnosis Lumbar radiculopathy, chronic- Primary Gait disturbance Abnormality of gait documented in this encounter Care Teams Inset Cutter Relationship Specialty Start Date End Date Zamzam Vidal MD [address] [place] [phone] PCP - General Family Medicine 03/11/18 documented as of this encounter
--- OUTSIDE RECORDS SUMMARY | 2025-01-28 04:52 | XMS_ITS | Encounter Summary ---
Author Organization [employer] Address [address] [place] [address] 7t [place] [address] Care Team Providers Care Scanner Operator Name Role Phone Zamzam Vidal MD Primary Care Provider + Reason for Visit * Reason Comments Med Refill Encounter Details Date Type Department Care Team ([facility] Contact Info) Description 07/04/2022 Refill [facility] MEDICINE 230 [place], [place] [phone] Zamzam Vidal MD [address] [place], [place] [phone] Social History Tobacco Use Types Packs/Day Years [...] on filedocumented in this encounter Care Teams Scanner Operator Relationship Specialty Start Date End Date Zamzam Vidal MD [address] [place] [address] PCP - General Family Medicine 03/11/18 documented as of this encounter
--- OUTSIDE RECORDS SUMMARY | 2025-01-28 04:52 | XMS_ITS | Encounter Summary ---
Author Organization [employer] Address [address] [place] [address] 7t [place] [address] Care Team Providers Care Network Liaison Name Role Phone Zamzam Vidal MD Primary Care Provider + Reason for Visit * Reason Onset Date Comments Appointment Request 07/24/2022 Encounter Details Date Type Department Care Team ([facility] Contact Info) Description 07/24/2022 Telephone [facility] MEDICINE [address] [place], [place] [phone] Zamzam Vidal MD [address] [place] [address] Appointment Request Social History Tobacco Use Types [...] on filedocumented in this encounter Care Teams Network Liaison Relationship Specialty Start Date End Date Zamzam Vidal MD [address] [place] [address] PCP - General Family Medicine 03/11/18 documented as of this encounter
--- OUTSIDE RECORDS SUMMARY | 2025-01-28 04:52 | XMS_ITS | Encounter Summary ---
Author Organization [employer] Address [address] [place] [address] 7t [place] [address] Care Team Providers Care Edge Gluer Name Role Phone Zamzam Vidal MD Primary Care Provider + Reason for Visit * Reason Onset Date Comments Referral 11/16/2022 Encounter Details Date Type Department Care Team ([facility] st Contact Info) Description 11/16/2022 Telephone [facility] MEDICINE [address] [place], [place] [phone] Zamzam Vidal MD [address] [place] [address] Referral Social History Tobacco Use Types Packs/Day [...] message below. Referral has the incorrect facility ([facility] Pt is requesting [facility]. * Telephone Encounter - Brionna Aguilar RN - 11/16/2022 12:33 PM EDT Please see message below regarding PT referral places yesterday, thanks! * Telephone Encounter - Farzana Cazares - 11/16/2022 11:21 AM EDT Tc from pt requesting for physical therapy referral to be faxed to Specialty:[facility] Location:[address] [place], [place] [address], [place] [address] Date&Time: n/a Broom Man: N/a Pt also informs she spoke with someone in the [facility] office and was inform she may need a PA . Please call to clarify . documented in this encounter Plan of Treatment Not on file documented as of this encounter Visit Diagnoses Not on filedocumented in this encounter Care Teams Edge Gluer Relationship Specialty Start Date End Date Zamzam Vidal MD [address] [place] [address] PCP - General Family Medicine 03/11/18 documented as of this encounter
== END 2025-01-27 16:31 | disposition home or self-care (01) ==
LOC: HO.HHCLNP 16:30
PROVIDERS: Visit Provider Internal Medicine
DX: Z01.411 Encounter for gynecological examination (general) (routine) with abnormal findings (principal); N76.1 Subacute and chronic vaginitis; Z20.2 Contact with and (suspected) exposure to infections with a predominantly sexual mode of transmission
CPT/HCPCS: 81515; 87086; 87491; 87591; 88175